=== PATIENT | female | born 1980 | race African-American/Black ===

== ENCOUNTER → 2019-12-30 11:17 | Outpatient (CLI) | payer OTHER, SELFPAY ==
--- NOTE | ~2019-12-30 | MM_ITS ---
EXAMINATION: MM screening manuelito BI w raisa HISTORY: Screening mammogram TECHNIQUE: Craniocaudal and mediolateral oblique 3-D tomosynthesis images were obtained and synthetic 2-D images were generated. CAD analysis was submitted and interpreted. COMPARISON: None, baseline BREAST PARENCHYMAL COMPOSITION: The breasts are heterogeneously dense, which may obscure small masses . FINDINGS: There is no evidence of suspicious mass, calcification, or architectural distortion to sugg est malignancy in either breast. IMPRESSION: 1. No mammographic evidence of malignancy. 2. Recommend routine screening mammography in one year. BI-RADS Category 1: Negative Reviewed, dictated and finalized at location A.
== END ==
PROVIDERS: PCP Family Medicine; Visit Provider Nurse Practitioner Family
DX: Z12.31 Encounter for screening mammogram for malignant neoplasm of breast (principal)
CPT/HCPCS: 77063; 77067

== ENCOUNTER 2021-01-25 14:47 | Emergency (ER) | payer OTHER, SELFPAY ==
--- NOTE | ~2021-01-25 | US_ITS ---
EXAMINATION: US right upper quadrant EXAM DATE: 01/25/2021 17:12 INDICATION: Right upper quadrant pain. TECHNIQUE: Multiple grayscale and Doppler images of the abdomen right upper quadrant were obtained (b y a technologist who performed the scan) and subsequently reviewed. There is no prior study for linda jean. FINDINGS: The pancreatic head and body are normal in appearance. The pancreatic tail is not visualized. The l iver has normal echogenicity and contour. There are no focal liver lesions identified. There is no evidence of intrahepatic biliary duct dilation. Portal venous flow was seen in the hepatopedal, nor mal direction and has normal Doppler waveform. No right-sided hydronephrosis. Common bile duct measures 4 mm, which is normal. The gallbladder wall is normal in thickness, with ex pected amount of distention. No sonographic evidence of pericholecystic fluid. There is no cholelit hiases. Technologist performing exam reports patient did not demonstrate sonographic Blackburn's sign. Please note that this sign is less reliable in patients who have received pain medication. IMPRESSION: 1. Unremarkable abdominal ultrasound exam. Reviewed, dictated and finalized at location A.
[2021-01-25 14:50] VITALS: BP 131/71; PULSE 66; RESP 16; TEMP 36.1; O2SAT 100
[2021-01-25 15:39] LABS: Add Urine Microscopic? YES; Appearance Urine Cloudy (Clear); Bacteria Urine Trace /hpf; Bilirubin Urine Negative (Negative); Blood Urine Negative (Negative); Color Urine Yellow (Yellow); Glucose Urine UA Negative (Negative); Ketones Urine Negative (Negative); Leukocyte Esterase Ur Negative LEU/UL (Negative); Mucus Urine Rare /lpf; Nitrate Urine Negative (Negative); Protein Urine 1+ mg/dL (Negative); Squamous Epithelial Cell Urine Rare /hpf (Few); Urobilinogen Urine Negative mg/dL (<2.0); WBC Urine 0-3 /hpf
[2021-01-25] MEDS: SODIUM CHLORIDE 0.9% IV 1,000 ML 999 ML IV CONT (15:42)
[2021-01-25] MEDS: HYOSCYAMINE SULFATE 0.125 MG TABLET PO (15:43)
[2021-01-25] MEDS: PANTOPRAZOLE SODIUM IV 40 MG VIAL IV PUSH (15:43)
[2021-01-25] MEDS: ONDANSETRON INJ 4 MG/2 ML VIAL IV PUSH (15:43)
[2021-01-25 15:48] VITALS: BP 109/68; PULSE 61; RESP 16; O2SAT 100
[2021-01-25 15:51] LABS: Basophils Percent Auto 0.2 % (0.2-1.2); Eosinophils Absolute Auto 0.1 K/mm3 (0-0.3); Eosinophils Percent Auto 1.5 % (0-4.4); Hematocrit 39.3 % (37.0-47.0); Hemoglobin 12.7 g/dL (12.0-15.0); Immature Granulocyte Absolute 0.01 K/mm3 (0.00-0.031); Immature Granulocyte Percent A 0.1 % (0-0.5); Lymphocytes Absolute Auto 4.06 K/mm3 (0.9-3.2); Lymphocytes Percent Auto 49.6 % (18.3-44.2); Mean Corpuscular HGB Conc 32.3 g/dl (32-36); Mean Corpuscular Hemoglobin 29.8 pg (26-34); Mean Corpuscular Volume 92.3 fl (80-100); Mean Platelet Volume 10.2 fl (7.4-10.4); Monocytes Absolute Auto 0.7 K/mm3 (0.1-0.6); Neutrophils Absolute Auto 3.2 K/mm3 (1.3-6.7); Neutrophils Percent Auto 39.6 % (45.5-73.1); Platelet Count Result 363 k/mm3 (150-375); Potassium 3.9 mmol/L (3.4-5.0); Red Blood Count 4.26 M/mm3 (4.2-5.4); Red Cell Distribution Width 13.7 % (11.5-14.5); White Blood Count 8.2 K/mm3 (4.5-10.0)
[2021-01-25 15:53] LABS: Alanine Aminotransferase 56 U/L (4-35); Albumin Level 4.4 g/dL (3.5-5.1); Alkaline Phosphatase 55 U/L (38-126); Anion Gap 4 mmol/L (8-16); Aspartate Amino Transferase 48 U/L (14-36); Bilirubin,Total 0.3 mg/dL (0.2-1.3); Blood Urea Nitrogen 8 mg/dL (7-17); Calcium 9.4 mg/dL (8.4-10.2); Carbon Dioxide 32 mmol/L (22-30); Chloride 103 mmol/L (98-107); Estimated CRCL calculation 98 ml/min; Estimated Glomerular Filt Rate > 60; Glucose 85 mg/dL (65-105); Lipase 33 U/L (23-300); Sodium 139 mmol/L (137-145)
[2021-01-25 16:30] VITALS: BP 115/79; PULSE 62; RESP 16; O2SAT 100
[2021-01-25 17:00] VITALS: BP 105/65; PULSE 64; RESP 16; O2SAT 100
--- NOTE | 2021-01-25 17:09 | ED.GENADULT ---
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 Patient notes over the last several days she has been bloated distended and discomfort in the epigastrium. Related Data Home Medications Medication Instructions Recorded Confirmed albuterol 90 mcg INHALATION PRN PRN 01/25/21 01/25/21 amlodipine 10 mg PO DAILY 01/25/21 01/25/21 azelastine 2 spray INTRANASAL BID 01/25/21 01/25/21 cetirizine 10 mg PO DAILY 01/25/21 01/25/21 clonazepam 0.5 mg PO TID PRN 01/25/21 01/25/21 ergocalciferol (vitamin D2) PO WEEKLY 01/25/21 famotidine 40 mg PO HS 01/25/21 01/25/21 fluticasone furoate-vilanterol 1 inh INHALATION DAILY 01/25/21 01/25/21 [Breo Ellipta] fluticasone propionate 1 spray INTRANASAL BID 01/25/21 01/25/21 hydroxyzine HCl 25 mg PO TID PRN 01/25/21 01/25/21 mepolizumab [Nucala] mg SUBCUT [id number] 01/25/21 methocarbamol 1,000 mg PO QID PRN 01/25/21 01/25/21 olmesartan 20 mg PO DAILY 01/25/21 01/25/21 olopatadine [Pazeo] 1 drp EACH EYE DAILY PRN 01/25/21 01/25/21 ondansetron HCl 8 mg PO PRN PRN 01/25/21 01/25/21 pantoprazole 20 mg PO BID 01/25/21 01/25/21 phentermine 37.5 mg PO DAILY 01/25/21 01/25/21 Allergies Allergy/AdvReac Type Severity Reaction Status Date / Time amoxicillin Allergy Unknown Anaphylaxis Verified 01/25/21 15:19 Penicillins Allergy Unknown Anaphylaxis Verified 01/25/21 15:19 Review of Systems Review of Systems: All systems reviewed & are unremarkable except as noted in HPI and below PMFSH Past Medical History Medical History (Updated 01/25/21 @ 18:10 by Fuad Reyes PA-C) Gastroesophageal reflux disease Family History Family History (Updated 09/18/17 @ 07:27 by DOCTOR UNKNOWN) Mother Family history of premature coronary heart disease, Onset Age: 50 Patient's mother is Diabetes mellitus Hypertension Family history of malignant neoplasm of cervix Father Diabetes mellitus Sibling Patient's brother is in good health Family history of anemia Social History Social History Smoking status: Never smoker Alcohol intake: current Exam Narrative: Exam Narrative: GENERAL: Well-appearing, well-nourished, and in no acute distress. HEAD: Normocephalic, atraumatic. EYES: PERRLA and EOMI. ENT: Nares clear, no rhinorrhea or epistaxis. Mucous membranes moist. CHEST: Clear to auscultation. No respiratory distress. No wheezes rales or rhonchi HEART: Regular rate and rhythm. No murmur heard. Normal peripheral pulses. ABDOMEN: Soft, epigastric tenderness to palpation, distended EXTREMITIES: Normal range of motion. No edema. SKIN: Warm, dry, no rash. NEURO: No focal deficits. Alert and oriented x3. Cranial nerves II through XII grossly intact PSYCH: Normal mood and affect. Course Course Emergency Course: Patient evaluated in the emergency department will be discharged home patient has follow-up with primary care tomorrow for reevaluation will be placed back on her PPI with additional medicines for symptoms with instructions for low-fat diet and gastric ulcer diet patient is afebrile nontoxic-appearing no distress Vital Signs Vital signs: Vital Signs Temperature 97.0 F L 01/25/21 14:50 Pulse Rate 66 01/25/21 14:50 Respiratory Rate 16 01/25/21 14:50 Blood Pressure 131/71 01/25/21 14:50 Pulse Oximetry 100 01/25/21 14:50 Temperat
[2021-01-25 18:25] VITALS: BP 109/71; PULSE 60; RESP 18; O2SAT 100
[2021-01-25 19:15] VITALS: BP 103/66; PULSE 60; RESP 17; O2SAT 100
== END 2021-01-25 19:15 | disposition home or self-care (01) ==
PROVIDERS: Emergency Medicine Emergency Medical Services; Emergency Provider Emergency Medicine; PCP Family Medicine
DX: R10.13 Epigastric pain (principal); K21.9 Gastro-esophageal reflux disease without esophagitis
CPT/HCPCS: 36415; 76705; 80053; 81001; 81025; 83690; 85025; 96361; 96374; 96375; 99284; A9270; C9113; J0131; J2405; J7030

== ENCOUNTER 2021-03-24 16:25 | Outpatient (CLI) | payer OTHER, SELFPAY ==
--- NOTE | ~2021-03-24 | MM_ITS ---
EXAMINATION: MM screening manuelito BI w raisa HISTORY: Screening TECHNIQUE: Craniocaudal and mediolateral oblique 3-D tomosynthesis images were obtained and synthetic 2-D images were generated. CAD analysis was submitted and interpreted. COMPARISON: 12/30/2019 BREAST PARENCHYMAL COMPOSITION: There are scattered areas of fibroglandular density. FINDINGS: There are bilateral subareolar asymmetries. There are no suspicious calcifications. No skin thickening. No definite architectural distortion. IMPRESSION: 1. Bilateral subareolar breast asymmetries. 2. Additional mammographic views and possible breast ultrasound are recommended. BI-RADS Category 0: Incomplete: Needs additional imaging evaluation. Reviewed, dictated and finalized at location A. IMPRESSION: 1. Bilateral subareolar breast asymmetries. 2. Additional mammographic views and possible breast ultrasound are recommended . BI-RADS Category 0: Incomplete: Needs additional imaging evaluation.
== END 2021-03-24 16:26 | disposition home or self-care (01) ==
PROVIDERS: PCP Family Medicine; Visit Provider Obstetrics & Gynecology Gynecology
DX: Z12.31 Encounter for screening mammogram for malignant neoplasm of breast (principal); R92.8 Other abnormal and inconclusive findings on diagnostic imaging of breast
CPT/HCPCS: 77063; 77067

== ENCOUNTER 2021-05-02 12:36 | Outpatient (CLI) | payer OTHER, SELFPAY ==
--- NOTE | ~2021-05-02 | MM_ITS ---
EXAMINATION: MM diagnostic mammo BI HISTORY: Bilateral breast asymmetries on screening mammogram TECHNIQUE: Additional 3-D tomosynthesis images of the breasts were performed and synthetic 2-D images were generated. CAD analysis was submitted and interpreted. COMPARISON: 03/24/2021, 12/30/2019 BREAST PARENCHYMAL COMPOSITION: The breasts are heterogeneously dense, which may obscure small masses . FINDINGS: There is a return to baseline fibroglandular appearance with spot compression of the breast s in the areas questioned on screening mammogram. IMPRESSION: 1. No mammographic evidence of malignancy. 2. Recommend routine screening mammography in one year. BI-RADS Category 1: Negative Reviewed, dictated and finalized at location A.
== END 2021-05-02 12:37 | disposition home or self-care (01) ==
PROVIDERS: PCP Family Medicine; Visit Provider Obstetrics & Gynecology Gynecology
DX: N65.1 Disproportion of reconstructed breast (principal)
CPT/HCPCS: 77066

== ENCOUNTER 2022-05-22 09:17 | Outpatient (CLI) | payer OTHER, SELFPAY ==
--- NOTE | ~2022-05-22 | MM_ITS ---
EXAMINATION: MM screening manuelito BI w raisa HISTORY: Screening TECHNIQUE: Craniocaudal and mediolateral oblique 3-D tomosynthesis images were obtained and synthetic 2-D images were generated. CAD analysis was submitted and interpreted. COMPARISON: Comparison to multiple prior studies sequentially, with oldest reviewed study dated 12/29. BREAST PARENCHYMAL COMPOSITION: Breast composed of scattered areas of fibroglandular density FINDINGS: The right breast is stable without evidence for malignancy. There is a developing asymmetry in the subareolar location of the left breast. IMPRESSION: 1. Developing left breast asymmetry in the subareolar location. 2. Additional mammographic views and possible breast ultrasound are recommended. BI-RADS Category 0: Incomplete: Needs additional imaging evaluation. Reviewed, dictated and finalized at location A. IMPRESSION: 1. Developing left breast asymmetry in the subareolar location. 2. Additional mammographic views and possible breast ultrasound are recommended . BI-RADS Category 0: Incomplete: Needs additional imaging evaluation.
== END 2022-05-22 09:18 | disposition home or self-care (01) ==
LOC: ANHIMG 09:19
PROVIDERS: PCP Family Medicine; Visit Provider Nurse Practitioner
DX: Z12.31 Encounter for screening mammogram for malignant neoplasm of breast (principal); R92.8 Other abnormal and inconclusive findings on diagnostic imaging of breast
CPT/HCPCS: 77063; 77067

== ENCOUNTER 2022-06-13 12:51 | Outpatient (CLI) | payer OTHER, SELFPAY ==
--- NOTE | ~2022-06-13 | MMUS_ITS ---
EXAMINATION: MM diagnostic manuelito LT w raisa, US breast LT limited HISTORY: Follow-up left breast asymmetry TECHNIQUE: Additional 3-D tomosynthesis images of the left breast were performed and synthetic 2-D im ages were generated. CAD analysis was submitted and interpreted. High resolution Limited left breast ultrasound was performed. COMPARISON: Comparison to multiple prior studies sequentially, with oldest reviewed study dated 12/29. BREAST PARENCHYMAL COMPOSITION: Breast composed of scattered areas of fibroglandular density FINDINGS: MAMMOGRAPHIC FINDINGS: The area of asymmetry in the upper central aspect of the left breast is less dense with spot compress ion views. No discrete mass identified on tomographic images. There are no suspicious calcifications or architectural distortion. ULTRASOUND: Limited left breast ultrasound: No discrete solid or cystic mass is identified. At the 3:00 position near the areola there is a area of echogenic shadowing soft tissue, although no discrete mass identif ied. IMPRESSION: 1. Probable benign findings of the left breast. 2. Recommend 6 month follow-up diagnostic left mammogram and left breast ultrasound BI-RADS category 3, probably benign findings. Reviewed, dictated and finalized at location A. IMPRESSION: 1. Probable benign findings of the left breast. 2. Recommend 6 month follow-up diagnostic left mammogram and left breast ultras ound BI-RADS category 3, probably benign findings.
== END 2022-06-13 12:52 | disposition home or self-care (01) ==
PROVIDERS: PCP Family Medicine; Visit Provider Obstetrics & Gynecology Gynecology
DX: R92.8 Other abnormal and inconclusive findings on diagnostic imaging of breast (principal)
CPT/HCPCS: 76642; 77061; 77065; G0279

== ENCOUNTER 2023-01-19 13:46 | Outpatient (CLI) | payer OTHER, SELFPAY ==
--- NOTE | ~2023-01-19 | MMUS_ITS ---
EXAMINATION: MM diagnostic manuelito LT w raisa, US breast LT complete HISTORY: Follow-up left breast asymmetry TECHNIQUE: Additional 3-D tomosynthesis images of the left breast were performed and synthetic 2-D im ages were generated. CAD analysis was submitted and interpreted. High resolution complete left breast ultrasound was performed. COMPARISON: Comparison to multiple prior studies sequentially, with oldest reviewed study dated 12/29. BREAST PARENCHYMAL COMPOSITION: Breast composed of scattered areas of fibroglandular density FINDINGS: MAMMOGRAPHIC FINDINGS: There are no suspicious masses, calcifications or architectural distortion in the left breast to sugg est malignancy. Left breast asymmetry is stable. ULTRASOUND: Complete US of all 4 quadrants of the left breast and retroareolar region was reviewed. Normal hetero geneous echotexture without focal mass. IMPRESSION: 1. No evidence for malignancy in the left breast. 2. Routine yearly screening mammogram and regular clinical breast examination are recommended. BI-RADS Category 1: Negative Reviewed, dictated and finalized at location A. IMPRESSION: 1. No evidence for malignancy in the left breast. 2. Routine yearly screening mammogram and regular clinical breast examination a re recommended. BI-RADS Category 1: Negative
== END 2023-01-19 13:47 | disposition home or self-care (01) ==
LOC: ANHIMG 13:48
PROVIDERS: PCP Family Medicine; Visit Provider Obstetrics & Gynecology Gynecology
DX: R92.8 Other abnormal and inconclusive findings on diagnostic imaging of breast (principal)
CPT/HCPCS: 76641; 77061; 77065; G0279

== ENCOUNTER 2023-02-10 00:53 | Emergency (ER) | payer OTHER, SELFPAY ==
--- NOTE | ~2023-02-10 | XR_ITS ---
EXAMINATION: XR foot RT 2V INDICATION: Right foot pain TECHNIQUE: Two views of the right foot are obtained. COMPARISON: None available FINDINGS: Bone alignment is normal. There is no fracture. There is mild osteoarthritis at the first m etatarsophalangeal joint. There is soft tissue swelling of ankle. IMPRESSION: 1. No acute osseous abnormality. Reviewed, dictated and finalized at location A.
--- NOTE | ~2023-02-10 | XR_ITS ---
EXAMINATION: XR ankle RT min 3V INDICATION: Right ankle pain TECHNIQUE: Three views of the right ankle are obtained. COMPARISON: 08/13/2013 FINDINGS: There is soft tissue swelling of ankle. Bone alignment is normal. There is no fracture. A p osterior calcaneal enthesophyte is noted. IMPRESSION: 1. No acute osseous abnormality. Reviewed, dictated and finalized at location A.
--- NOTE | ~2023-02-10 | XR_ITS ---
EXAMINATION: XR tibia fibula RT 2V INDICATION: Right leg pain TECHNIQUE: Two views of the right tibia and fibula are obtained on three radiographs. COMPARISON: None available FINDINGS: Bone alignment is normal. There is a subtle linear heterotopic ossification projecting medi al to the medial malleolus. There is soft tissue swelling of ankle. IMPRESSION: 1. Possible avulsion injury at the medial aspect of the medial malleolus. Reviewed, dictated and finalized at location A.
--- NOTE | 2023-02-10 01:11 | ED.LOWEXIN ---
HPI - Extremity Injury (Lower) General Chief Complaint: Extremity Injury, Lower <Monisha Harrison PA-C - Last Filed: 02/11/23 09:12> Stated Complaint: right lower extremity swelling, after flying <Monisha Harrison PA-C - Last Filed: 02/11/23 09:12> Time Seen by Provider: 02/10/23 01:02 <Monisha Harrison PA-C - Last Filed: 02/11/23 09:12> History of Present Illness HPI Narrative: 42-year-old female reports for evaluation of right lower extremity swelling and pain for 4 days. Patient reports 4 days ago, she flew from [place] to [place] and later twisted her right ankle while wearing heels. States she started having some edema to the lateral aspect of her right ankle and pain which progressively worsened over multiple days. States today she flew back from [place] and now the entire leg is swollen up into her knee. She denies redness, rashes, weeping, chest pain, shortness of breath, fever. Reports she has been ambulating on her foot without difficulty. <Monisha Harrison PA-C - Last Filed: 02/11/23 09:12> Related Data Home Medications: Home Medications Medication Instructions Recorded Confirmed albuterol 90 mcg/actuation aerosol 90 mcg inhalation PRN PRN Allergy 01/25/21 01/25/21 inhaler Symptoms amlodipine 10 mg tablet 10 mg PO DAILY 01/25/21 01/25/21 azelastine 137 mcg (0.1 %) nasal 2 spray intranasal BID 01/25/21 01/25/21 spray aerosol cetirizine 10 mg tablet 10 mg PO DAILY 01/25/21 01/25/21 clonazepam 0.5 mg tablet 0.5 mg PO TID PRN Anxiety 01/25/21 01/25/21 ergocalciferol (vitamin D2) 1,250 PO WEEKLY 01/25/21 mcg (50,000 unit) capsule famotidine 40 mg tablet 40 mg PO HS 01/25/21 01/25/21 fluticasone furoate 200 1 inh inhalation DAILY 01/25/21 01/25/21 mcg-vilanterol 25 mcg/dose inhalation powder (Breo Ellipta) fluticasone propionate 50 1 spray intranasal BID 01/25/21 01/25/21 mcg/actuation nasal spray,suspension hydroxyzine HCl 25 mg tablet 25 mg PO TID PRN Itching 01/25/21 01/25/21 mepolizumab 100 mg subcutaneous mg subcut [id number] 01/25/21 solution (Nucala) methocarbamol 500 mg tablet 1,000 mg PO QID PRN Back Pain 01/25/21 01/25/21 olmesartan 20 mg tablet 20 mg PO DAILY 01/25/21 01/25/21 olopatadine 0.7 % eye drops 1 drp EACH EYE DAILY PRN Allergy 01/25/21 01/25/21 Symptoms ondansetron HCl 8 mg tablet 8 mg PO PRN PRN Nausea And Vomiting 01/25/21 01/25/21 pantoprazole 20 mg tablet,delayed 20 mg PO BID 01/25/21 01/25/21 release phentermine 37.5 mg capsule 37.5 mg PO DAILY 01/25/21 01/25/21 <Monisha Harrison PA-C - Last Filed: 02/11/23 09:12> Allergies/Adverse Reactions: Allergies Allergy/AdvReac Type Severity Reaction Status Date / Time amoxicillin Allergy Unknown Anaphylaxis Verified 02/10/23 00:55 Penicillins Allergy Unknown Anaphylaxis Verified 02/10/23 00:55 <Monisha Harrison PA-C - Last Filed: 02/11/23 09:12> Review of Systems Review of Systems: CONSTITUTIONAL: Denies fever, chills EYES: Denies visual changes, redness, or discharge. ENT: Denies rhinorrhea, congestion, sore throat, or otalgia. CARDIOVASCULAR: Denies chest pain, palpitations, or edema. RESPIRATORY: Denies cough or dyspnea. GASTROINTESTINAL: Denies abdominal pain, nausea, vomiting, or diarrhea. GENITOURINARY: Denies dysuria or hematuria. SKIN: Denies rash or itching. MUSCULOSKELETAL: See HPI NEUROLOGIC: Denies headache, numbness, dizziness, or weakness. PSYCHIATRIC: Denies anxiety or depression. <JULIAN Goodwin Last Filed: 02/11/23 09:12> [facility] Past Medical History Medical History: Medical History Gastroesophageal reflux disease <Monisha Harrison PA-C - Last Filed: 02/11/23 09:12> Family History Family History: Family History Mother Family history of premature coronary heart disease, Onset Age: 50 Patient's mother is deceas
[2023-02-10] MEDS: CYCLOBENZAPRINE HCL 10 MG TABLET PO (01:25)
[2023-02-10] MEDS: HYDROcodone/acetaminophen (*CRX) 5-325 MG TABLET 1 TAB PO (01:25)
[2023-02-10 01:32] LABS: Basophils Percent Auto 0.3 % (0.2-1.2); Eosinophils Absolute Auto 0.1 K/mm3 (0-0.3); Eosinophils Percent Auto 0.7 % (0-4.4); Hematocrit 35.1 % (37.0-47.0); Immature Granulocyte Absolute 0.01 K/mm3 (0.00-0.031); Immature Granulocyte Percent A 0.1 % (0-0.5); Lymphocytes Absolute Auto 3.09 K/mm3 (0.9-3.2); Lymphocytes Percent Auto 41.4 % (18.3-44.2); Mean Corpuscular HGB Conc 31.3 g/dl (32-36); Mean Corpuscular Hemoglobin 28.6 pg (26-34); Mean Corpuscular Volume 91.2 fl (80-100); Mean Platelet Volume 10.8 fl (7.4-10.4); Monocytes Absolute Auto 0.8 K/mm3 (0.1-0.6); Monocytes Percent Auto 10.3 % (2.6-8.5); Neutrophils Absolute Auto 3.5 K/mm3 (1.3-6.7); Neutrophils Percent Auto 47.2 % (45.5-73.1); Platelet Count Result 237 k/mm3 (150-375); Red Blood Count 3.85 M/mm3 (4.2-5.4); Red Cell Distribution Width 15.1 % (11.5-14.5); White Blood Count 7.5 K/mm3 (4.5-10.0)
[2023-02-10] MEDS: ENOXAPARIN 100 MG/ML SYRINGE SUB-Q (01:52)
[2023-02-10 01:54] VITALS: BP 122/78; PULSE 66; RESP 15; TEMP 36.4; O2SAT 98
== END 2023-02-10 03:54 | disposition home or self-care (01) ==
PROVIDERS: Emergency Provider Physician Assistant; PCP Family Medicine
DX: S93.401A Sprain of unspecified ligament of right ankle, initial encounter (principal); S96.911A Strain of unspecified muscle and tendon at ankle and foot level, right foot, initial encounter; R22.41 Localized swelling, mass and lump, right lower limb; K21.9 Gastro-esophageal reflux disease without esophagitis; X50.9XXA Other and unspecified overexertion or strenuous movements or postures, initial encounter
CPT/HCPCS: 36415; 73590; 73610; 73620; 85025; 96372; 99283; 99284; A9270; J1650

== ENCOUNTER 2023-02-10 07:10 | Outpatient (CLI) | payer OTHER, SELFPAY ==
--- NOTE | ~2023-02-10 | US_ITS ---
EXAMINATION: US venous doppler LE RT DATE: 02/10/2023 07:58 INDICATION: Right lower limb swelling TECHNIQUE: Hinton scale images without and with compression and Doppler images of the right lower extre mity veins were obtained. COMPARISON: None FINDINGS: The right common femoral vein, profunda femoral vein, femoral vein, popliteal vein, peronea l trunk, posterior tibial veins, and greater saphenous vein are patent. IMPRESSION: 1. Patent right lower extremity veins. No evidence of deep venous thrombosis. Reviewed, dictated and finalized at location A.
== END 2023-02-10 07:11 | disposition home or self-care (01) ==
PROVIDERS: PCP Family Medicine; Visit Provider Family Medicine
DX: R60.0 Localized edema (principal)
CPT/HCPCS: 93971

== ENCOUNTER 2025-02-06 09:40 | Outpatient (CLI) | payer OTHER, SELFPAY ==
--- NOTE | ~2025-02-06 | MM_ITS ---
EXAMINATION: MM screening manueilto BI w raisa HISTORY: Screening TECHNIQUE: Craniocaudal and mediolateral oblique 3-D tomosynthesis images were obtained and synthetic 2-D images were generated. CAD analysis was submitted and interpreted. COMPARISON: Comparison to multiple prior studies sequentially, with oldest reviewed study dated 12/29. BREAST PARENCHYMAL COMPOSITION: Not dense: There are scattered areas of fibroglandular density. FINDINGS: There is no evidence of suspicious mass, calcification, or architectural distortion to sugg est malignancy in either breast. There has been no suspicious interval change. IMPRESSION: 1. No mammographic evidence of malignancy. 2. Recommend routine screening mammography in one year. BI-RADS Category 1: Negative Reviewed, dictated and finalized at location B.
--- OUTSIDE RECORDS SUMMARY | 2025-02-06 09:52 | XMS_ITS ---
Author Organization [facility] Address [address] [place] [address] Care Team Providers Care Film Crew Member Name Role Phone Lasha Juarez Primary Care Provider Valentine Ferro [phone] Walter Valdez Unavailable Unavailable REASON FOR VISIT Medical records request Social History Sex Assigned At : Social History Observation Description Sex Assigned At Female Encounters Encounter Location Date Provider Diagnosis [facility] [address] [place] [address] 01/22/2025 Valentine Reyes Plan Of Treatment Next Appt Details Provider Name:Alexis Saba , 02/19/2025 11:00:00 AM, [address] [address], [place], [address], Provider Name:Alexis Saba , 02/26/2025 11:30:00 AM, [address] [facility] [address], [place], [address], Progress Notes * Anila ZACARIASOB: (44 yo F)Acc No.[id number]:01/22/2025 Patient: Antonella SmithAnila PLASCENCIA :1980 A ge:44 Y S ex:Female Address:[address] [place] [address], [id number] * true * Date: Generated for Thor de anda/Christiano/Eduitting on: 0 02/06/2025 09:52 AM CDT
--- OUTSIDE RECORDS SUMMARY | 2025-02-06 09:52 | XMS_ITS | Data Portability ---
Author Organization [place] [facility] [employer], Main Office Address [address] [place] [address] Assessment No assessment recorded. Plan of Treatment Reminders Order Date Submit Date Provider Last Modified By Organization Details Last Modified Time Details Appointments None recorded. Lab None recorded. Referral nutritionis t/dietitian referral - Please call the pt to make an appt. Thank you [email or web address], 2022 Ajit Balbuena, [facility] [address], [place], [address], 19:16:07 Procedures None recorded. Surgeries None recorded. Imaging XR, ankle, 3 or more view 2022 023 [email or web address] [id number] Not available 3 10:53:22 Medication Orders naproxen 500 mg tablet 2023 024 [facility]/Pharmacy #[id number], [address] [place], [address], 4 14:46:16 azithromyci n 250 mg tablet 2023 024 [facility]/Pharmacy #3259, [address] [place], [address], 4 14:46:15 methylpheni date ER 27 mg tablet,exte nded release 24 hr 2023 [email or web address] [place] [address]/Pharmacy #3259, [address] [place], [address], 4 14:44:30 ondansetron HCl 8 mg tablet 2023 024 [facility]/Pharmacy #3259, [address] [place], [address], 4 16:22:08 methylpheni date ER 18 mg tablet,exte nded release 24 hr 2023 024 [facility]/Pharmacy #3259, [address] [place], [address], 4 16:24:28 Wegovy 0.25 mg/0.5 mL subcutaneou s pen injector 2023 024 [id number], [address] [place], [address], 4 15:59:13 hydroxyzine HCl 25 mg tablet 2023 024 [facility]/Pharmacy #3259, [address] [place], [address], 4 15:08:02 hyoscyamine sulfate 0.125 mg tablet 2023 024 [facility]/Pharmacy #3259, [address] [place], [address], 4 15:12:33 amitriptyli ne 10 mg tablet 2022 023 [facility]/Pharmacy #3259, [address] [place], [address], 4 14:28:18 Wegovy 0.25 mg/0.5 mL subcutaneou s pen injector 2022 023 [facility]/Pharmacy #3259, [address] [place], [address], 15:59:13 Patient TargetsNo targets recorded. Patient Instructions Encounter Date Encounter Id Patient Instructions Last Modified By Organization Details Last Modified Time 08/05/2024 [id number] reassured. 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 Thank you Referring Physician: Saúl Carpio, Family Medicine, Encounter Date: 02/15/2023 Results Created Date Observation Date Name Description Value Unit Range Abnormal Flag Note LastModifiedBy Organization Detail LastModifiedTime 01/20/2001/19/2023 MAMMO , scree nena, digit al, bilat eral No observ ation record ed. [address] [facility], [place], [address], 01/22/2023 08:25:47 02/11/20 23 02/10/2023 US, doppl er, venou s No observ ation record ed. [address] [facility], [place], [address], 02/12/2023 10:08:49 02/11/20 23 02/10/2023 US, doppl er, venou s No observ ation record ed. [address] [facility], [place], [address], 02/12/2023 10:09:42 02/11/20 23 02/10/2023 XR, ankle No observ ation record ed. [address], [place], [address], 02/12/2023 10:10:20 02/11/20 23 02/10/2023 XR, foot No observ ation record ed. [address], [place], [address], 02/12/2023 10:10:34 02/11/20 23 02/10/2023 XR, tibia + fibul a No observ ation record ed. [address], [place], [address], 02/12/2023 10:11:01 02/11/20 23 02/10/2023 XR, ankle No observ ation record ed. [address], [place], [address], 02/12/2023 10:11:20 Result Notes None recorded. Problems Name Problem SNOMED Code Status Onset Date Resolution Date Notes Provider Name and Address Organization Details Recorded Time Irritabl e bowel syndrome 81404842 Active Not Available [facility] 3 16:44:27 Backache 291879801 Active chronic Not Available [facility] 3 16:44:27 Asthma 616204290 Active Not Available [facility] 3 16:44:27 Abdomina l pain 61923373 Active Not Available [facility] 3 16:44:28 Feeling stressed 659706572 Active Not Available [facility] 3 16:44:28 Gastroes ophageal reflux disease without esophagi tis 245649017 Active 2020 Not Available [facility] 3 16:44:28 Hyperten sive disorder 54866682 Active Not Available [facility] 3 16:44:28 Upper respirat ory infectio n 42875761 Completed Not Available [facility] 3 16:44:28 Eosinoph ilic granulom atosis with polyangi itis 92531225 Active 2021 Not Available [facility] 3 16:44:28 COVID-19 110816960 Active 2019 Not Available [facility] 3 16:44:28 Fatigue 46772529 Active Not Available [facility] 3 16:44:28 Pneumoni a caused by SARS-CoV -2 [id number] 4890324 Active 2019 Not Available [facility] 3 16:44:28 Obesity 098795394 Active 2022 Saúl Carpio MD [address], [address], [place], [address] , [facility] 3 15:57:18 Sprain of right ankle [id number] 541471 Active 2022 Saúl Carpio MD [address], [address], [place], [address] , [employer] 3 12:47:26 Nausea 211026652 Active 2022 ELVIRA Edmondson [address], [address], [place], [address] , [employer] 3 12:43:57 Persiste nt insomnia 113909028 Active 2022 Saúl Carpio MD [address], [address], [place], [address] , [employer] 3 12:28:02 Sinusiti s 67971346 Active 2023 ELVIRA Edmondson [address], [address], [place], [address] , [employer] 4 13:47:58 Adult health examinat ion Active 2023 ELVIRA Edmondson [address], [address], [place], [address] , [employer] 4 15:14:15 Attentio n deficit hyperact ivity disorder , predomin antly inattent edwin type 58138514 Active 2023 ELVIRA Edmondson [address], [address], [place], [address] , [employer] 4 16:21:45 Obese 057842191 Active 2023 Yumiko Ballard RN null, [employer] 4 15:42:44 Problem Notes None recorded. Procedures Surgical History None recorded. Imaging Results Imaging Date Name Status LastModified by Organiz ation Details LastModified Time 01/19/2023 MAMMO, screening, digital, bilateral completed [address] [facility], [place], [address], 01/22/2023 08:25:47 02/10/2023 US, doppler, venous completed [address] [facility], [place], [address], 02/12/2023 10:08:49 02/10/2023 US, doppler, venous completed [address] [facility], [place], [address], 02/12/2023 10:09:42 02/10/2023 XR, ankle completed [address] [facility], [place], [address], 02/12/2023 10:10:20 02/10/2023 XR, foot completed [address] [facility], [place], [address], 02/12/2023 10:10:34 02/10/2023 XR, tibia + fibula completed [address] [place] [address], [address], 02/12/2023 10:11:01 02/10/2023 XR, ankle completed [address], [address], 02/12/2023 10:11:20 Procedure Notes None recorded. Medical Equipment None Reported. Allergies Allergen ID Allergen Name Allergen Category Reaction Reaction Severity Criticality Documentation Date Start Date Code Code System Note Provider Name and Address Organization Details Recorded Time 53534 penicilli n V Not available Not available Not available Not available 12/20/2022 7984 RxNorm Not Available [facility] 3 16:46:00 76835 amoxicill in medicatio n Not available Not available Not available 12/20/2022 723 RxNorm Not Available [facility] 3 16:46:01 Medications Name Sig Start Date Stop Date Status Note LastModified by Organization Details LastModified Time losartan 50 mg tablet Take 1 tablet every day by oral route. active Not Available Not Available No t Available methocarb ion 500 mg tablet TK 2 TS PO QID PRN active Not Available Not Available No t Available promethaz ine-DM 6.25 mg-15 mg/5 mL oral syrup 02/11 completed Not Available Not Available Not Available prednison e 10 mg tablet TK 1 T PO QD 04/11 completed Not Available Not Available Not Available albuterol sulfate 2.5 mg/3 mL (0.083 %) solution for nebulizat ion U 1 VIAL VIA NEB Q 4 TO 6 H PRN active Not Available Not Available No t Available cetirizin e 10 mg tablet TAKE 1 TABLET BY MOUTH EVERY DAY FOR 90 DAYS active Not Available Not Available No t Available ketoconaz ole 200 mg tablet Take 1 tablet every day by oral route. active Not Available Not Available No t Available azithromy pura 250 mg tablet TAKE 2 TABLETS (500 MG) BY ORAL ROUTE ONCE DAILY FOR 1 DAY THEN 1 TABLET (250 MG) BY ORAL ROUTE ONCE DAILY FOR 4 DAYS active Not Available Not Available No t Available fluconazo le 150 mg tablet 04/20 completed Not Available Not Available Not Available clarithro mycin 500 mg tablet TK 1 T PO Q 12 H FOR 10 DAYS 04/20 completed Not Available Not Available Not Available ondansetr on HCl 8 mg tablet TAKE 1 TABLET BY MOUTH EVERY 8 HOURS NEEDED active Not Available Not Available No t Available fluconazo le 200 mg tablet TAKE 1 TABLET BY MOUTH DAILY 09/13 completed Not Available Not Available Not Available metronida zole 0.75 % (37.5 mg/5 gram) vaginal gel 04/20 completed Not Available Not Available Not Available famotidin e 40 mg tablet active Not Available Not Available Not Available prednison e 20 mg tablet TAKE 1 TABLET BY MOUTH TWICE A DAY FOR 5 DAYS 06/16 completed Not Available Not Available Not Available Tubersol 5 tub. unit/0.1 mL intraderm al injection solution inject .5ml 02/15 completed Not Available Not Available Not Available clonazepa m 0.5 mg tablet TK 1 T PO TID PRN 09/23 completed pt no longer taking Not Available Not Available Not Available fluoxetin e 10 mg tablet TK 2 TS PO QAM active Not Available Not Available No t Available prednison e 5 mg tablet TAKE 1 TABLET BY MOUTH ONCE A DAY DIRECTED 09/13 completed Not Available Not Available Not Available terconazo le 0.8 % vaginal cream INSERT 1 APPLICAT OR FULL IN VAGINA AT BEDTIME FOR 3 DAYS 02/15 completed Not Available Not Available Not Available pimecroli mus 1 % topical cream MARCELLA TO FACE BID UTD 09/13 completed Not Available Not Available Not Available permethri n 5 % topical cream APPLY AND THOROUGH LY MASSAGE INTO SKIN FROM HEAD TO SOLES OF FEET AND LEAVE ON FOR 8 TO 14 HOURS. REMOVE BY WASHING active Not Available Not Available No t Available diphenoxy late-atro pine 2.5 mg-0.025 mg tablet 1-2 tablets Q 4 hours as needed. 02/15 completed Not Available Not Available Not Available azathiopr ine 50 mg tablet TAKE 1 TABLET BY MOUTH EVERY DAY 09/04 completed Not Available Not Available Not Available phentermi ne 37.5 mg tablet TAKE 1 AND 1/2 TABLETS DAILY BY MOUTH 06/16 completed not taking, would like refill Not Available Not Available Not Available fexofenad ine 180 mg tablet TK 1 T PO ONCE D 11/25 completed Not Available Not Available Not Available ciproflox acin 500 mg tablet TAKE 1 TABLET BY MOUTH EVERY 12 HOURS FOR 10 DAYS 06/16 completed Not Available Not Available Not Available triamcino lone acetonide 0.1 % topical cream APPLY EXTERNAL LY TO THE AFFECTED AREA TWICE DAILY NEEDED active Not Available Not Available No t Available spironola ctone 25 mg tablet TAKE 1 TABLET BY MOUTH EVERY DAY FOR 10 DAYS THEN NEEDED 09/13 completed Not Available Not Available Not Available pantopraz ole 20 mg tablet,de layed release TAKE 2 TABLETS BY MOUTH TWICE DAILY 04/11 completed Not Available Not Available Not Available nystatin- triamcino lone 100,000 unit/gram -0.1 % topical ointment 01/01 completed Not Available Not Available Not Available alprazola m 0.5 mg tablet Take 1 tablet 3 times a day by oral route as needed. active Not Available Not Available No t Available famotidin e 20 mg tablet TAKE 1 TABLET BY MOUTH AT BEDTIME NEEDED active Not Available Not Available No t Available Vitamin C 1,000 mg tablet Take 1 tablet every day by oral route. 03/28 completed Not Available Not Available Not Available amitripty line 10 mg tablet TAKE 1 TABLET BY MOUTH EVERY DAY 09/23 completed pt stopped Not Available Not Available Not Available amlodipin e 10 mg tablet TAKE 1 TABLET BY MOUTH EVERY DAY active Not Available Not Available No t Available benzonata te 100 mg capsule TAKE 1 CAPSULE BY MOUTH THREE TIMES A DAY FOR 10 DAYS 06/16 completed Not Available Not Available Not Available prednison e 2.5 mg tablet 11/25 completed Not Available Not Available Not Available pantopraz ole 40 mg tablet,de layed release 1 TABLET 1/2 TO 1 HOUR BEFORE MORNING MEAL ORALLY ONCE A DAY 90 DAYS active Not Available Not Available No t Available hyoscyami ne sulfate 0.125 mg tablet TAKE 1 TABLET BY MOUTH EVERY 6 HOURS NEEDED active Not Available Not Available No t Available oseltamiv ir 75 mg capsule TAKE 1 CAPSULE BY MOUTH TWICE A DAY FOR 5 DAYS 02/15 completed Not Available Not Available Not Available fluoxetin e 20 mg tablet TAKE 2 TABLETS BY MOUTH DAILY 11/25 completed Not Available Not Available Not Available triamcino lone acetonide 0.1 % topical ointment 04/20 completed Not Available Not Available Not Available nystatin 100,000 unit/gram topical cream 01/01 completed Not Available Not Available Not Available hydrochlo rothiazid e 12.5 mg capsule TK 1 C PO QD 11/25 completed Not Available Not Available Not Available Advair Diskus 500 mcg-50 mcg/dose powder for inhalatio n 09/13 completed Not Available Not Available Not Available lidocaine HCl 2 % mucosal solution APPLY 5-10 ML TO THE MOUTH OR THROAT EVERY 3 (THREE) HOURS FOR 7 DAYS active Not Available Not Available No t Available omeprazol e 20 mg capsule,d elayed release TK 1 C PO QD BEFORE A MEAL 04/20 completed Not Available Not Available Not Available monteluka st 10 mg tablet TK 1 T PO QD IN THE EVENING 02/11 completed Not Available Not Available Not Available hydroxyzi ne HCl 25 mg tablet TAKE 1 TABLET 3 TIMES A DAY NEEDED active Not Available Not Available No t Available Unithroid 25 mcg tablet TAKE 1 TABLET BY MOUTH EVERY DAY IN THE MORNING 06/16 completed Not Available Not Available Not Available ergocalci ferol (vitamin D2) 1,250 mcg (50,000 unit) capsule TAKE 1 CAPSULE EVERY WEEK 2024 active Not Available Not Available Not Avai lable clobetaso l 0.05 % topical ointment 11/25 completed Not Available Not Available Not Available azelastin e 137 mcg (0.1 %) nasal spray U 2 SPRAYS NASALLY BID active Not Available Not Available No t Available budesonid e DR - ER 3 mg capsule,d elayed,ex tended release TK 3 CS PO QD 11/25 completed Not Available Not Available Not Available levofloxa pura 500 mg tablet TK 1 T PO Q 24 H FOR 10 DAYS 08/23 completed Not Available Not Available Not Available methylpre dnisolone 4 mg tablets in a dose pack FOLLOW PACKAGE DIRECTIO NS active Not Available Not Available No t Available albuterol sulfate HFA 90 mcg/actua tion aerosol inhaler INL 2 PFS PO Q 4 TO 6 H PRN active Not Available Not Available No t Available ipratropi um bromide 42 mcg (0.06 %) nasal spray USE 2 SPRAY(S) INTRANAS ALLY UP TO 4 TIMES A DAY NEEDED 30 DAY(S) 09/23 completed Not Available Not Available Not Available losartan 50 mg-hydroc hlorothia zide 12.5 mg tablet TK 1 T PO QD 04/20 completed Not Available Not Available Not Available norethind radhames (contrace ptive) 0.35 mg tablet TAKE 1 TABLET BY MOUTH EVERY DAY IN THE MORNING 06/16 completed Not Available Not Available Not Available ketoconaz ole 2 % topical cream 11/28 completed Not Available Not Available Not Available hydroxyzi ne HCl 10 mg tablet TK 1 T PO QD HS PRF ITCHING 11/28 completed Not Available Not Available Not Available ondansetr on 4 mg disintegr ating tablet DISSOLVE 1 TABLET ON THE TONGUE THREE TIMES DAILY FOR 10 DAYS NEEDED 11/14 completed Not Available Not Available Not Available methylphe nidate ER 18 mg tablet,ex tended release 24 hr Take 1 tablet every day by oral route in the morning for 30 days. active Not Available Not Available No t Available fluticaso ne propionat e 50 mcg/actua tion nasal spray,sg pension U 1 SPRAY IEN BID active Not Available Not Available No t Available metformin ER 500 mg tablet,ex tended release 24 hr Take 1 tablet every day by oral route at dinner for 90 days. active Not Available Not Available No t Available doxycycli ne hyclate 100 mg tablet TAKE 1 TABLET BY MOUTH TWICE DAILY FOR 10 DAYS 09/13 completed Not Available Not Available Not Available phentermi ne 37.5 mg capsule 08/05 completed Not Available Not Available Not Available naproxen 500 mg tablet Take 1 tablet twice a day by oral route with meal(s) for 10 days. active Not Available Not Available No t Available methylphe nidate ER 36 mg tablet,ex tended release 24 hr Take 1 tablet every day by oral route in the morning for 30 days. active Not Available Not Available No t Available spironola ctone 50 mg tablet Take 2 tablets every day by oral route in the morning for 90 days. active Not Available Not Available No t Available olanzapin e 5 mg disintegr ating tablet DISSOLVE 1 TABLET BY MOUTH DAILY NEEDED FOR SEVERE ABDOMINA L PAIN OR NAUSEA FOR UP TO 7 DOSES 09/13 completed Not Available Not Available Not Available methylphe nidate ER 27 mg tablet,ex tended release 24 hr TAKE 1 TABLET BY MOUTH EVERY DAY IN THE MORNING active Not Available Not Available No t Available olmesarta n 20 mg tablet TAKE 1 TABLET DAILY active Not Available Not Available No t Available metaxalon e 800 mg tablet TK 1 T PO TID 07/09 completed Not Available Not Available Not Available Prilosec OTC 20 mg tablet,de layed release Take by oral route. 09/13 completed Not Available Not Available Not Available bupropion HCl XL 150 mg 24 hr tablet, extended release TK 1 T PO QD active Not Available Not Available No t Available escitalop christy 5 mg tablet TK ONE T PO ONCE D active Not Available Not Available No t Available BD Ultra-Fin e Mini Pen Needle 31 gauge x 3/16 U UTD active Not Available Not Available Not Available Clindesse 2 % vaginal cream,ext ended release 12/26 completed Not Available Not Available Not Available Rozerem 8 mg tablet TAKE 1 TABLET PO QHS active Not Available Not Available No t Available budesonid e 1 mg/2 mL suspensio n for nebulizat ion MIX 1 VIAL WITH 10 SPLENDA PACKETS AND DRINK SOLUTION TWICE DAILY 02/15 completed Not Available Not Available Not Available Tilia Fe 1-20 (5)/1-30( 7)/1mg-35 mcg(9) tablet TK 1 T PO QD active Not Available Not Available No t Available olopatadi ne 0.6 % nasal spray 04/20 completed Not Available Not Available Not Available Dulera 200 mcg-5 mcg/actua tion HFA aerosol inhaler 07/09 completed Not Available Not Available Not Available Dulera 100 mcg-5 mcg/actua tion HFA aerosol inhaler Inhale 2 puffs twice a day by inhalati on route. 11/25 completed Not Available Not Available Not Available [employer]ER OPERATOR Thyroid 30 mg tablet TAKE 1 TABLET BY MOUTH EVERY DAY ON EMPTY STOMACH FOR 30 DAYS active Not Available Not Available No t Available Auvi-Q 0.3 mg/0.3 mL injection , auto-inje ctor INJECT 0.3 MG INTRAMUS CULARLY NEEDED FOR ANAPHYLA XIS active Not Available Not Available No t Available Belviq 10 mg tablet Take 1 tablet twice a day by oral route. active Not Available Not Available No t Available Virtussin AC 10 mg-100 mg/5 mL oral liquid TK 10 ML PO Q 4 TO 6 H PRN COU 08/23 completed Not Available Not Available Not Available Fluvirin 7627-7967 45 mcg (15 mcg x 3)/0.5 mL intramusc ular suspensio n INJECT 0.5 ML INTRAMUS CULARLY DIRECTED . active Not Available Not Available No t Available Incruse Ellipta 62.5 mcg/actua tion powder for inhalatio n INHALE 1 PUFF PO D 04/20 completed Not Available Not Available Not Available Pazeo 0.7 % eye drops INSTILL 1 DROP IN EACH AFFECTED EYE ONCE A DAY FOR 30 DAYS active Not Available Not Available No t Available Saxenda 3 mg/0.5 mL (18 mg/3 mL) subcutane ous pen injector INJECT 1.8MG BY SQ ROUTE D 11/28 completed Not Available Not Available Not Available Breo Ellipta 200 mcg-25 mcg/dose powder for inhalatio n TAKE 1 PUFF BY MOUTH EVERY DAY 04/11 completed Not Available Not Available Not Available Nucala 100 mg subcutane ous solution 09/13 completed Not Available Not Available Not Available Cinqair 10 mg/mL intraveno us solution Inject by intraven ous route. 2021 active weight based doage, every 4 weeks Not Available Not Available Not Available Fluarix Quad (PF) 60 mcg (15 mcg x 4)/0.5 mL IM syringe active Not Available Not Available Not Available Trelegy Ellipta 100 mcg-62.5 mcg-25 mcg powder for inhalatio n 06/16 completed dose adjustme nt Not Available Not Available Not Available Shingrix (PF) 50 mcg/0.5 mL intramusc ular suspensio n, kit TO BE ADMINIST ERED BY PHARMACI ST FOR IMMUNIZA TION 11/25 completed Not Available Not Available Not Available Fasenra 30 mg/mL subcutane ous syringe 09/13 completed Not Available Not Available Not Available Flucelvax Quad (PF) 60 mcg (15 mcg x 4)/0.5 mL IM syringe ADM 0.5ML IM UTD active Not Available Not Available No t Available Fasenra Pen 30 mg/mL subcutane ous auto-inje ctor 04/11 completed Not Available Not Available Not Available Trelegy Ellipta 200 mcg-62.5 mcg-25 mcg powder for inhalatio n INHALE 1 PUFF DAILY RINSE MOUTH AFTER USE. active Not Available Not Available No t Available Wegovy 1 mg/0.5 mL subcutane ous pen injector Inject 1 mg every week by subcutan eous route as directed for 28 days. 09/23 completed Not Available Not Available Not Available Wegovy 0.25 mg/0.5 mL subcutane ous pen injector INJECT 0.25 MG EVERY WEEK BY SUBCUTAN EOUS ROUTE FOR 30 DAYS. active Not Available Not Available No t Available Wegovy 0.5 mg/0.5 mL subcutane ous pen injector Inject 0.5 mg every week by subcutan eous route as directed for 28 days. 09/23 completed Not Available Not Available Not Available Mounjaro 5 mg/0.5 mL subcutane ous pen injector Inject by subcutan eous route for 28 days. active Not Available Not Available No t Available Zepbound 5 mg/0.5 mL subcutane ous pen injector Inject 5 mg every week by subcutan eous route as directed for 28 days. active Not Available Not Available No t Available Zepbound 2.5 mg/0.5 mL subcutane ous pen injector Inject 2.5 mg every week by subcutan eous route as directed for 28 days, for 2. active Not Available Not Available No t Available Vitals Date Recorded Body height Body mass index (BMI) Body weight Body temperature Heart rate Oxygen saturation Oxygen saturation in Arterial blood by Pulse oximetry Systolic blood pressure Diastolic blood pressure Provider Name and Address Organization Details Last Updated DateTime 3 180.34 cm 31.7 kg/m2 156538. 47 g 97.9 [degF] 77 /min 98 % 98 % 160 mm[Hg] 100 mm[Hg] SHOAIB Newman [facility] [employer] [facility] 3 12:27:18 Date Recorded Body height Body mass index (BMI) Body weight Body temperature Heart rate Oxygen saturation Oxygen saturation in Arterial blood by Pulse oximetry Systolic blood pressure Diastolic blood pressure Provider Name and Address Organization Details Last Updated DateTime 3 180.34 cm 30.3 kg/m2 91271.5 4 g 97.7 [degF] 75 /min 96 % 96 % 124 mm[Hg] 78 mm[Hg] SHOAIB Newman [facility] [employer] [facility] 3 12:11:13 Date Recorded Body height Body mass index (BMI) Body weight Body temperature Oxygen saturation Oxygen saturation in Arterial blood by Pulse oximetry Heart rate Respiratory rate Systolic blood pressure Diastolic blood pressure Provider Name and Address Organization Details Last Updated DateTime 4 180.34 cm 34.6 kg/m2 715023. 91 g 98.2 [degF] 96 % 96 % 77 /min 16 /min 120 mm[Hg] 84 mm[Hg] Mariposa Velez RN [facility] [employer] [facility] 4 14:47:56 Date Recorded Body height Body mass index (BMI) Body weight Body temperature Heart rate Systolic blood pressure Diastolic blood pressure Provider Name and Address Organization Details Last Updated DateTime 4 180.34 cm 32.2 kg/m2 635369. 84 g 98.1 [degF] 68 /min 130 mm[Hg] 82 mm[Hg] Mariposa Velez RN [facility] [employer] [facility] 4 16:01:09 Date Recorded Body height Body mass index (BMI) Body weight Body temperature Heart rate Oxygen saturation Oxygen saturation in Arterial blood by Pulse oximetry Systolic blood pressure Diastolic blood pressure Provider Name and Address Organization Details Last Updated DateTime 4 180.34 cm 31.2 kg/m2 806008. 69 g 97.9 [degF] 75 /min 98 % 98 % 110 mm[Hg] 80 mm[Hg] MIKE Holloway [facility] RT [employer] [facility] 4 14:34:30 Social History Question Answer Notes LastModified by Organizat ion Details LastModified Time Tobacco Smoking Status Never Smoker Not Available [facility] 12/20/2022 16:43:40 What Is Your Level Of Alcohol Consumption? Occasional [id number] Information not available 12/20/2022 What Is Your Level Of Caffeine Consumption? Moderate [id number].[id number] Information not available 12/20/2022 In The 14 Days Before Symptom Onset, Have You Had Close Contact With A Laboratory-confirm ed COVID-19 While That Case Was Ill? No [id number].[id number] Information not available 12/20/2022 In The 14 Days Before Symptom Onset, Have You Had Close Contact With A Person Who Is Under Investigation For COVID-19 While That Person Was Ill? No MIGRATION.[id number] Information not available 12/20/2022 What Type Of Diet Are You Following? 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 [id number] Information not available 12/20/2022 How Much Tobacco Do You Smoke? No [id number].[id number] Information not available 12/20/2022 Do You Use Any Illicit Or Recreational Drugs? No MIGRATION.[id number] 8705 Information not available 12/20/2022 Have You Recently Traveled Abroad? No MIGRATION.[id number] 9113 Information not available 12/20/2022 Do You Have Any Dietary Restrictions? No MIGRATION.[id number] 5653 Information not available 12/20/2022 Sex: Female Functional Status None recorded. Mental Status None recorded. Family History Relationship Description Onset Age of this Age Resolved Age Notes LastModified by Organization Details LastModified Time Maternal Grandmother History of thyroid disorder [email or web address] Not available 09/23 14:21:17 Maternal Aunt Lupus erythematosu s [email or web address] Not available 09/23 14:21:17 Unspecified Relation Lupus erythematosu s [email or web address] Not available 09/23 14:21:17 Father Diabetes mellitus [id number] Not available 12/20/2022 16:43:46 Mother Diabetes mellitus [id number] Not available 12/20/2022 16:43:46 Mother Hypertensive disorder [id number] Not available 12/20/2022 16:43:46 Mother Family history of malignant neoplasm [email or web address] Not available 09/23 14:21:17 Medical History Condition Response SKIN PROBLEMS Y BOWEL PROBLEMS Y BACK / NECK PROBLEMS Y HYPERTENSION Y GERD/NAUSEA Y Gynecological HistoryNo gynecological history recorded. Obstetrics History GPAL:G 0 P 0 0 0 0 Immunizations Vaccine Type Date Status Note Provider Nam e and Address Organization Details Recorded Time MMR 2 completed Not Available [facility] 12/20/2022 16:45:58 Tdap 2 completed Not Available [facility] 12/20/2022 16:45:58 Influenza, split virus, quadrivalent, preservative 6 completed Not Available [facility] 12/20/2022 16:45:58 Influenza, split virus, quadrivalent, preservative 5 completed Not Available [facility] 12/20/2022 16:45:58 Past Encounters Encounter ID Performer Location Encounter Start Date Encounter Closed Date Diagnosis/Indication Diagnosis SNOMED-CT Code Diagnosis ICD10 Code Diagnosis Note [id number] [facility] Family [facility] Dmitry brooks [address] [place] [address] 02/03/2021 00:00:00 02/03/2021 12:37:29 [id number] [facility] [place] [address] [place] [address] 03/07/2021 00:00:00 03/07/2021 21:23:01 [id number] [facility] [place] [address] [place] [address] 09/13/2021 00:00:00 09/13/2021 12:38:10 [id number] [facility] [place] [address] [place] [address] 11/14/2021 00:00:00 11/14/2021 17:09:47 [id number] [facility] [place] [address] [place] [address] 01/20/2022 00:00:00 01/20/2022 13:47:07 [id number] [facility] [place] [address] [place] [address] 04/11/2022 00:00:00 04/11/2022 22:00:53 [id number] [facility] [place] [address] [place] [address] 06/12/2022 00:00:00 06/12/2022 13:41:17 [id number] [facility] [place] [address] [place] [address] 09/04/2022 00:00:00 09/04/2022 11:39:19 [id number] [facility] [place] [address] [place] [address] 09/06/2022 00:00:00 09/12/2022 21:24:01 [id number] Saúl Carpio MD [facility] [place] [address] [place] [address] 02/15/2023 12:12:10 02/15/2023 13:45:44 Sprain of right ankle 8090621041 9849265 S93.401A Will need xray in about 3 weeks. Obesity 035912549 E66.9 Taking phentermin e no help with weight loss. Will start wegovy. Will need to f/u 3 months. 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 Obesity 612737328 E66.9 Gastroesop hageal reflux disease without esophagitis 980968077 K21.9 Adult [facility] th examination 666608210 Z00.00 Asthma 212754848 J45.90 9 Hypertensive disorder 38 352763 I10 Persistent insomnia 1918 08569 G47.09 [id number] ELVIRA [place] [address] [place] [address] 08/05/2024 15:51:55 08/05/2024 16:28:25 Nausea 840555478 R11.0 Attention deficit hyperactivity disorder, 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 Obesity 257165225 E66.9 Irritable bowel syndrome 01957482 K58.9 Hypertensive disorder 38 740316 I10 Gastroesop hageal reflux disease without esophagitis 394326148 K21.9 Asthma 472546043 J45.90 9 [id number] ELVIRA Edmondson [address] [address] 09/23/2024 14:19:02 09/23/2024 15:01:21 Attention deficit hyperactivity disorder, predominantly inattentive type 80638827 F90.0 Hypertensive disorder 38 606201 I10 Sinusitis 33397871 J32.9 Gastroesop hageal reflux disease without esophagitis 258423576 K21.9 Obese 854269635 E66.9 Health Concerns Section Related Observation LastModified by Organization Detai ls LastModified Time None Recorded Concern Status LastModified by Organization Details LastModified Time None Recorded Advance Directives Directive None Recorded Payers Encounter Date Sequence Insurance Name Policy Number Policy Baird Covered Member ID Baird Member ID Guarantor Name 02/15/2023 1 [employer]PP[employer] [facility] Anila Antonella Rell [id number] Anila Zacarias 05/17/2023 1 [employer]PP[employer] [facility] Anila Zacarias [id number] Anila Zacarias 06/16/2024 1 [employer]PP[employer] [facility] Anila Zacarias [id number] Anila Zacarias 08/05/2024 1 [employer]PP[employer] [facility] Anila Antonella Rell [id number] Anila Zacarias 09/23/2024 1 [employer]PP[employer] [facility] Anila Berman Rell [id number] Anila Zacarias Notes Date Note Type Note Provider Name and Address Organization Details Recorded Time 02/15/2023 text/html Here today for c heck up of phentermine. Has not been losing weight on this.She rolled her ankle. Went to ER and had venous doppler. It was negative for DVT. Has pain on lateral right ankle and swelling. Has been elevating her foot. Can bare weight on it. Taking advil for the pain. Saúl Carpio MD [address], [place], [address], [facility] [employer] 02/16/2023 06:10:48 05/17/2023 text/html Here today for f /u of wegovy. Can not find wegovy. Has lost 10#sHas insomnia can not sleep until 3-5 am. Has taken melatonin gummies. It makes her too drowsy the next day. Has never tried anything else. Saúl Carpio MD [address], [place], [address], [email or web address] 05/17/2023 20:29:59 06/16/2024 text/html wants to try Weg ovy for weight loss ELVIRA Edmondson [address], [place], [address], [employer] [facility] [employer] 06/21/2024 10:44:24 08/05/2024 text/html symptoms all lif e . million projects started , always distracted. never diagnosed . n/v , abd cramping on wegovy . ELVIRA Ed[place] [address], [place], [address], [employer] 08/29/2024 17:57:25 09/23/2024 text/html needs to cut diana k a little methylphenidate 36 a little too strong . has siinus pressure , no fever , no one else sick ELVIRA Edmondson [address], [place], [address], [employer] [facility] [employer] 10/04/2024 16:18:39 OBGyn Episode No OBEpisode recorded.
--- OUTSIDE RECORDS SUMMARY | 2025-02-06 09:53 | XMS_ITS ---
Author Organization [facility] Address [address] [place] [address] Care Team Providers Care Remote Sensing Program Manager Name Role Phone Lasha Juarez Primary Care Provider Valentine Ferro [phone] Walter Valdez Unavailable Unavailable REASON FOR VISIT Refills Social History Sex Assigned At : Social History Observation Description Sex Assigned At Female Encounters Encounter Location Date Provider Diagnosis [facility] [address] [place] [address] 01/22/2025 Valentine Reyes Plan Of Treatment Next Appt Details Provider Name:Alexis Saba , 02/19/2025 11:00:00 AM, [address] [facility] [address] [place] [address], [place], [address], Provider Name:Alexis Saba , 02/26/2025 11:30:00 AM, [facility] [address], [place], [address], Progress Notes * Anila ZCAARIASOB: (44 yo F)Acc No.[id number]:01/22/2025 Patient: Antonella BUCKAnila :1980 A ge:44 Y S ex:Female Address:[address] [place] [address], [address] * * Date:
--- OUTSIDE RECORDS SUMMARY | 2025-02-06 09:53 | XMS_ITS | Referral Summary ---
Author Organization [facility] Healthcare Address [address] [place] [address] Care Team Providers Care Account Support Analyst Name Role Phone Saúl Carpio MD Primary Care Provider [phone] Carina Anderson MD Unavailable [phone] Allergies Active Allergy Reactions Criticality Noted Date Comments Amoxicillin Shortness of breath High 02/05/2021 Penicillins Unknown 01/01/2018 Medications amLODIPine (NORVASC) 10 mg tablet Take 1 tablet (10 mg total) by mouth daily 03/29/20 21 Active cetirizine (ZyrTEC) 10 mg tablet Take 1 tablet (10 mg total) by mouth daily 02/14/20 21 Active ergocalciferol (VITAMIN D) 50,000 unit capsule Take 1 capsule (50,000 Units total) by mouth once a week Every Sunday03/29/20 21 Active famotidine (PEPCID) 40 mg tablet Take 0.5 tablets (20 mg total) by mouth Take 2 tablets 20mg a total of 40mg at night 04/26/20 21 Active olmesartan (BENICAR) 20 mg tablet Take 1 tablet (20 mg total) by mouth daily 03/16/[address] (PROTONIX) 40 mg EC tablet Take 1 tablet (40 mg total) by mouth daily 05/04/20 21 Active phentermine (ADIPEX-P) 37.5 mg tablet as needed 01/16/20 21 Active fluticasone propionate (FLONASE) 50 mcg/actuation nasal spray Administer 2 sprays into affected nostril(s) 2 (two) times a day 12/16/19 21 Active azelastine (ASTELIN) 137 mcg (0.1 %) nasal spray Administer 2 sprays into affected nostril(s) 2 (two) times a day 12/16/19 21 Active diphenoxylate-atro pine (LOMOTIL) 2.5-0.025 mg per tablet Take by mouth as needed 11/17/19 22 Active hydrOXYzine (ATARAX) 25 mg tablet Take 1 tablet (25 mg total) by mouth as needed 12/01/19 22 Active ondansetron ODT (ZOFRAN-ODT) 4 mg disintegrating tablet as needed 10/06/20 21 Active hyoscyamine (LEVSIN) 0.125 mg tabletIndications: Urinary Incontinence Take 1 tablet (0.125 mg total) by mouth every 6 (six) hours as needed for cramping or diarrhea 100 tablet 01/14/20 22 Active clonazePAM (KlonoPIN) 0.5 mg tablet Take 1 tablet (0.5 mg total) by mouth as needed As needed Active azaTHIOprine (IMURAN) 50 mg tabletIndications: Eosinophilic granulomatosis with polyangiitis (EGPA) ([facility]) Take 1 tablet (50 mg total) by mouth daily 90 tablet 05/02/20 22 Active Additional Information Patient taking differently:50 mg oral Daily,Has not yet started due to wanting a , Reported on 05/09/2022 albuterol 5 mg/mL nebulizer solution Take 0.5 mL (2.5 mg total) by nebulization every 6 (six) hours as needed for wheezing Active reslizumab (Cinqair) 10 mg/mL solution 3 mg/kg every 28 (twenty-eight) days Dosage may change/every 4 weeks Active fluticasone-umecli din-vilanter (Trelegy Ellipta) 200-62.5-25 mcg inhaler Inhale 1 puff daily RINSE MOUTH AFTER USE. 90 each 11 11/14/19 24 Active benzonatate (TESSALON) 100 mg capsuleIndications :Cough Take 1 capsule (100 mg total) by mouth 3 (three) times a day as needed for cough 42 capsule 01/14/20 Active albuterol HFA (PROVENTIL HFA,VENTOLIN HFA,PROAIR HFA) 90 mcg/actuation inhalerIndications :Severe persistent asthma, unspecified whether complicated (HCC) Inhale 2 puffs every 6 (six) hours as needed for wheezing 1 each 05/14/20 Active Active Problems Problem Noted Date Diagnosed Date Severe persistent asthma 12/11/2023 Acute bronchitis 01/01/2018 Bronchospasm, acute 01/01/2018 Asthma with acute exacerbation 01/01/2018 Fallopian insufflation for fertility testing 06/2017 Encounter for preventive health examination 04/22 Social History Tobacco Use Types Packs/Day Years Used Date Smoking Tobacco: Never Smokeless Tobacco: Never AUDIT-C Answer Date Recorded Q1: How often do you have a drink containing alc ohol? 2-4 times a month 01/13/2022 Average Number of Drinks Not on file 022 Frequency of Binge Drinking Not on file 12/21 Personal Safety Answer Date Recorded Getting School Help Needed Not on file 11/08 Comments Unknown Sex and Gender Information Value Date Recorded Sex Assigned at Not on file Legal Sex Female 3:52 PM CDT Gender Identity Female 08/26/2021 2:20 AM CDT Sexual Orientation Straight 08/26/2021 2: 20 AM CDT Last Filed Vital Signs Vital Sign Reading Time Taken Comments Blood Pressure 114/68 05/14/2024 12:04 PM CDT Pulse 79 05/14/2024 12:04 PM CDT Temperature 37 C (98.6 F) 05/14/2024 12:04 PM CDT Respiratory Rate 18 05/14/2024 12:04 PM CDT Oxygen Saturation 98% 05/14/2024 12:04 PM CDT Inhaled Oxygen Concentration - - Weight 103.9 kg (229 lb) 05/14/2024 12:04 PM CDT Height 170.2 cm (5' 7 ) 05/14/2024 12:04 PM CDT Body Mass Index 35.87 05/14/2024 12:04 PM CDT Plan of Treatment Not on file Procedures Procedure Name Priority Date/Time Associated Diagnosis Comments HEPATITIS C ANTIBODY Routine 03/07/2022 4:53 PM CDT Other eosinophilia from Last 3 Months or Most Recently Relevant to Health Maintenance Results * Hepatitis C antibody (03/07/2022 4:53 PM CDT) Hep C Ab Nonreactive Nonreactive [facility] Comment:Antibodies to HCV no t detected. Does NOT exclude the possibility of recent exposure to HCV. Blood 03/07/2022 4:53 PM CDT 03/07/2022 5:48 PM CDT us Jaylon Barney MD LAB MICROBIOLOGY - GENERAL OR DERABLES Final Result [facility] Department [place] [address] from Last 3 Months or Most Recently Relevant to Health Maintenance Insurance [id number] [address] Care Teams Account Support Analyst Relationship Specialty Start Date End Date Saúl Carpio MD [facility] [place] [address] PCP - General 01/01/18 Carina Anderson MD [address] [id number] 01/01/18
--- OUTSIDE RECORDS SUMMARY | 2025-02-06 09:53 | XMS_ITS | Continuity of Care Document ---
Author Organization [facility] Address [address] [place] [address] Phone Care Team Providers Care Wheat Washer Name Role Phone Fantasma Ray MD Unavailable Unavailable Advance Directives Directive Yes / No Effective Date File Name No Information Encounters Encounter Description Practice Location Reason(s) For Visit Diagnoses Date Provider Providers Copied on Encounter [facility], [address], [place], [place], [id number], [place] tel:[phone] [facility] No Information 0 Flor Meek. [address] [facility], [facility] [address], [place], [address], [place]. tel: [phone] Family History Family Member Type Diagnosis Age At Onset No Information Payers Payer name Insurance type Covered libertarian ID Authoriza tion(s) No Information Social History Type Description Quantity Date Captured Comments Alcohol Use Details Unknown Caffeine Use Details Unknown Tobacco Use Status No Information Smoking Status No Information Sex Female Chief Complaint And Reason For Visit No Information Reason For Referral Reason For Referral No Information History Of Present Illness Encounter Date Complaint History Of Prese nt Illness No Information Functional Status Date Functional Assessmen t No Information Instructions Date Instruction Additional Infor mation No Information Assessments Type Assessment Date No Information Patient Care Teams Name Effective Dates (start - stop) Status Members No Information
--- OUTSIDE RECORDS SUMMARY | 2025-02-06 09:53 | XMS_ITS | Clinical Summary ---
Author Organization [facility] Address [address] [place] [address] Care Team Providers Care Cardiac Cath Lab Manager Name Role Phone Meagan Markham MD Primary Care Provider + Source Comments [facility],non-owned Affiliates and Associated Physician Practices is amultiple site organization consisting of ambulatory clinics and hospital sitesin [place], [place], [place] and [place]. This disclosure is being madepursuant to the Care Everywhere program and may not contain all information available regarding this patient. 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 Gender Identity Not on file Sexual Orientation Not on file Plan of Treatment Health Maintenance Due Date Last Done Comments COLOGUARD (AGES 45-75) - COL ON CA SCREENING 1979 COLON MONITORING 1979 COLONOSCOPY - COLON CA SCREENING 1979 CT COLONOGRAPHY - COLON CA SCREENING 1979 Colorectal Cancer Screening 1979 FIT - COLON CA SCREENING 1979 FLEX SIG - COLON CA SCREENING 1979 LIPID TESTING 1979 MAMMOGRAM 1979 HIV SCREENING 1994 HEPATITIS C SCREENING 06/18/1997 DTAP/TDAP/TD VACCINES (1 - Tdap) 1998 HEPATITIS B VACCINE (1 of 3 - 19+ 3-dose series) 1998 COVID-19 VACCINE ( - 2023-2 5 season) 2024 DEPRESSION SCREENING 10/22/2024 INFLUENZA VACCINE (Season Ended) 2025 ZOSTER VACCINE (1 of 2) 2029 HIB VACCINE Aged Out No longer eligi ble based on patient's age to complete this topic HPV VACCINE Aged Out No longer eligi ble based on patient's age to complete this topic MENINGOCOCCAL (Group B) VACC INE SHARED DECISION-MAKING Aged Out No longer eligibl e based on patient's age to complete this topic MENINGOCOCCAL GROUPS A/C/Y/W VACCINE Aged Out No longer eligible b ased on patient's age to complete this topic PNEUMOCOCCAL VACCINE Aged Out No long er eligible based on patient's age to complete this topic Care Teams Cardiac Cath Lab Manager Relationship Specialty Start Date End Date Meagan Markham MD [address] [place] [address] PCP - General 12/03/18
--- OUTSIDE RECORDS SUMMARY | 2025-02-06 09:53 | XMS_ITS | Clinical Summary ---
Author Organization [facility] Healthcare Address [address] [place] [address] Care Team Providers Care Kiln Operator Name Role Phone Saúl Carpio MD Primary Care Provider [phone] Carina Anderson MD Unavailable [phone] Allergies Active Allergy Reactions Criticality Noted Date [...] mg tabletIndications: Eosinophilic granulomatosis with polyangiitis (EGPA) ([facility]) Take 1 tablet (50 mg total) by [...] inhalerIndications :Severe persistent asthma, unspecified whether complicated ([facility]) Inhale 2 puffs every 6 (six) hours as needed for wheezing 1 each 05/14/20 Active Active Problems Problem Noted Date Diagnosed Date Severe persistent asthma 12/11/2023 Acute bronchitis 01/01/2018 Bronchospasm, acute 01/01/2018 Asthma with acute exacerbation 01/01/2018 Fallopian insufflation for fertility testing 06/2017 Encounter for preventive health examination 04/22 Medical History Medical History Date Comments Asthma Eosinophilic granulomatosis with polyangiitis (E GPA) ([facility]) Family History Medical History Relation Name Comments Lupus Cousin Lupus Other Aunt Relation Name Status Comments Cousin Alive Other Aunt Alive Social History Tobacco Use Types Packs/Day Years [...] Orientation Straight 08/26/2021 2: 20 AM CDT Obstetrics History Last Filed Vital Signs Vital Sign Reading [...] 05/14/2024 12:04 PM CDT Plan of Treatment Health Maintenance Due Date Last Done Comments Breast Cancer Screening-Mammogram 1979 Cervical Cancer Screening 1979 Colon Cancer Screening-Colonoscopy 1979 Depression Screening 1979 Hepatitis B Screening 1997 Regular Well Visit/Exam 18-64 1997 Pneumococcal vaccine <65 (1 of 2 - PCV) 1998 Influenza Vaccine (#1) 2024 0, 10/01/2019, 09/02/2018, Additional history exists DTaP/Tdap/Td Vaccine (2 - Td or Tdap) 09/06/2032 09/06/2022 Hepatitis C Screening Completed 03/07/2022 HPV Vaccines Aged Out No longer eligi ble based on patient's age to complete this topic Procedures Procedure Name Priority Date/Time Associated Diagnosis Comments HEPATITIS C ANTIBODY Routine 03/07/2022 4:53 PM CDT Other eosinophilia from Last 3 Months or Most Recently Relevant to Health Maintenance Results * Hepatitis C antibody (03/07/2022 4:53 PM CDT) Hep C Ab Nonreactive Nonreactive [facility] Comment:Antibodies to HCV no t detected. Does NOT exclude the possibility of recent exposure to HCV. Blood 03/07/2022 4:53 PM CDT 03/07/2022 5:48 PM CDT us Jaylon Barney MD LAB MICROBIOLOGY - GENERAL OR DERABLES Final Result [facility] Department [place] [address] from Last 3 Months or Most Recently Relevant to Health Maintenance Insurance [facility] [id number] [place] Care Teams Kiln Operator Relationship Specialty Start Date End Date Saúl Carpio MD [address] [place] [address] PCP - General 01/01/18 Carina Anderson MD [address] [facility] [address] [place] [address] 01/01/18
--- OUTSIDE RECORDS SUMMARY | 2025-02-06 09:53 | XMS_ITS | Clinical Summary ---
Author Organization [facility] Address [address] [facility], [facility] [address] [place] [address] Phone Care Team Providers Care Finished Goods Planner Name Role Phone Saúl Carpio MD Primary Care Provider [phone] Allergies Active Allergy Reactions Criticality Noted Date Comments Amoxicillin Unknown 02/11/2021 Penicillins Unknown 02/11/2021 Medications spironolactone (ALDACTONE) 25 MG TabletIndicati ons:Other ascites Take 1 tab daily by mouth for 10 days then just as needed. 30 Tablet 2 1 Active Additional Information Patient taking differently: DAILY, Take 1 tab daily by mouth for 10 days then just as needed., Reported on 03/23/2021 ProAir HFA 108 (90 Base) MCG/ACT Aerosol Solution every 4 hours as needed. 1 Active amLODIPine (NORVASC) 10 MG Tablet every morning. 1 Active azelastine (ASTELIN) 0.1 % Solution 2 Sprays by Nasal route 2 times daily. 1 Active cetirizine (ZyrTEC) 10 MG Tablet daily. 1 Active clonazePAM (KlonoPIN) 0.5 MG Tablet every 4 hours as needed for Anxiety. 1 Active ergocalciferol (VITAMIN D) 35213 UNIT Capsule once a week. 1 Active famotidine (PEPCID) 40 MG Tablet every evening. 1 Active Breo Ellipta 200-25 MCG/INH AEROSOL POWDER, BREATH ACTIVATED TAKE 1 PUFF BY MOUTH EVERY DAY 1 Active fluticasone (FLONASE) 50 MCG/ACT Suspension 2 Sprays by Nasal route 2 times daily. 1 Active Nucala 100 MG Recon Soln by Subcutaneous route every 28 days. 1 Active olmesartan (BENICAR) 20 MG Tablet every morning. 1 Active ondansetron (ZOFRAN) 8 MG Tablet every 8 hours as needed. 1 Active pantoprazole (PROTONIX) 20 MG Tablet Delayed Response 2 times daily. 1 Active Phentermine HCl 37.5 MG Tablet TAKE 1 AND 1/2 TABLETS BY MOUTH EVERY DAY 1 Active EPINEPHrine (Auvi-Q) 0.3 MG/0.3ML Solution Auto-injector 0.3 mg by Intramuscular route once as needed. Active hydrOXYzine (ATARAX) 25 MG Tablet Take 25 mg by mouth every 6 hours as needed for Itching. Active methocarbamol (ROBAXIN) 500 MG Tablet Take 1,000 mg by mouth 4 times daily as needed. Active Olopatadine HCl (Pazeo) 0.7 % Solution Place in affected eye(s) as needed. Active calcium carbonate (TUMS EX) 750 MG Chewable Tablet Take 750 mg by mouth as needed. Active predniSONE (DELTASONE) 20 MG Tablet Take 40 mg by mouth daily. Active hyoscyamine (ANASPAZ, LEVSIN) 0.125 MG Tablet Take 0.125 mg by mouth every 6 hours as needed. Active fluconazole (DIFLUCAN) 200 MG Tablet Take 1 Tablet by mouth daily. 21 Tablet 1 Active Active Problems No known active problems Immunizations Immunization Administration Dates Next Due Influenza Vaccine, MDCK,quad rivalent, pres free 07/29/2020,10/01/2019 Influenza Vaccine, Quadrivalent, PF 11/09/2017 Influenza, Injectable, Quadrivalent 10/05/2016,1 11/22/2014 Influenza, Seasonal, Injectable, Undefined 09/02,09/11/2017,09/28/2014 Varicella Vaccine Live 07/10/2018,03/06/2018 Zoster Vaccine Recombinant 07/01/2018,03/05/2018 Family History Medical History Relation Name Comments Diabetes Father Cervical Cancer Mother Diabetes Mother Anemia Sister Relation Name Status Comments Father Mother Sister Social History Tobacco Use Types Packs/Day Years Used Date Smoking Tobacco: Never Smokeless Tobacco: Never Tobacco Cessation:Counseling Given: No Alcohol Use Standard Drinks/Week Comments Yes 0 (1 standard drink = 0.6 oz pur e alcohol) socially Sexually Active Control Partners Comments Not Currently Comments No Sex and Gender Information Value Date Recorded Sex Assigned at Not on file Legal Sex Female 10:52 PM CDT Gender Identity Not on file Sexual Orientation Not on file Last Filed Vital Signs Vital Sign Reading Time Taken Comments Blood Pressure 93/59 04/11/2021 9:35 AM CDT Pulse 64 04/11/2021 9:35 AM CDT Temperature 37 C (98.6 F) 04/11/2021 7:33 AM CDT Respiratory Rate 16 04/11/2021 9:35 AM CDT Oxygen Saturation 100% 04/11/2021 9:35 AM CDT Inhaled Oxygen Concentration - - Weight 100.7 kg (222 lb) 03/23/2021 1:00 PM CDT Height 170.2 cm (5' 7 ) 03/23/2021 1:00 PM CDT Body Mass Index 34.77 03/23/2021 1:00 PM CDT Plan of Treatment Health Maintenance Due Date Last Done Comments Hepatitis C Virus (HCV) Screening 1980 TdaP Immunization 1980 Hepatitis B Immunization (1 of 3 - 19+ 3-dose series) 1998 Influenza Immunization (#1) 2024 10/0 05/2020, 10/01/2019, 09/02/2018, Additional history exists SARS-COV-2 Immunization (2023- season) 2024 06/08/2021, 05/18/2021 Colonoscopy 04/11/2031 04/11/2021 Colorectal Cancer Screening 04/11/2031 Respiratory Syncytial Virus (RSV) Immunization (Adult) (1 - 1-dose 75+ series) 2054 04/11/2021 Meningococcal Immunization (ACWY) Aged Out No longer eligible based on patient's age to complete this topic Pneumococcal Immunization Combined Aged Out No longer eligible based on patient's age to complete this topic Rotavirus Immunization Aged Out No lo nger eligible based on patient's age to complete this topic Insurance [employer] Care Teams Finished Goods Planner Relationship Specialty Start Date End Date Saúl Carpio MD [address] [place] [address] PCP - General Baker Helper 02/21/21
--- OUTSIDE RECORDS SUMMARY | 2025-02-06 09:53 | XMS_ITS ---
Author Organization [facility] Address [address] [place] [address] Care Team Providers Care Outside Solar Sales Consultant Name Role Phone Lasha Juarez Primary Care Provider Valentine Ferro [phone] Walter Valdez Unavailable Unavailable REASON FOR VISIT Chronic care management Social History Sex Assigned At : Social History Observation Description Sex Assigned At Female Encounters Encounter Location Date Provider Diagnosis [facility] [address] [place] [address] 01/27/2025 Valentine Reyes Plan Of Treatment Next Appt Details Provider Name:Alexis Saba , 02/19/2025 11:00:00 AM, [address] [place] [address], [place], [address], Provider Name:Alexis Saba , 02/26/2025 11:30:00 AM[facility] [address] [facility] [address], [place], [address], Progress Notes * Anila ZACARIASOB: (44 yo F)Acc No.[id number]:01/27/2025 Patient: Antonella SmithAnlia PLASCENCIA :1980 A ge:44 Y S ex:Female Address:[address] [place] [address], [id number] * true * Date: Generated for Thor de anda/Christiano/Eduitting on: 0 02/06/2025 09:52 AM CDT
--- OUTSIDE RECORDS SUMMARY | 2025-02-06 09:53 | XMS_ITS | Patient Health Record ---
Author Organization [facility] Address [address] [place] [address] Care Team Providers Care Manufacturing Design Engineer Name Role Phone Larry Lasha Primary Care Provider UnavailValentine Lester Unavailable [phone] Walter Valdez Unavailable Unavailable Alexis Saba Unavailable [phone] Liliane Navarro Unavailable [phone] Estefanía Prasad Unavailable [phone] [employer], Provider Unavailable Unavailab le Allergies Allergen (clinical drug ingredient) Drug/Non Drug Allergy documented on EMR Reaction Allergy Type Onset Date Status Penicillin respiratory distress (IM injection) Drug Allergy Active Results Component Value Reference Range Notes -Vitamin D, 25-Hydroxy Reviewed date:04/11/2024 01:16:38 PM Interpretation:Normal Performing Lab:[facility] [id number], Phone - [phone], Director - PhDRicchialicei Notes/Report: Vitamin D, 25-Hydroxy 64.2 30.0-100.0 ng/mL Vitamin D deficiency has been defined by the [place] [employer] and an Endocrine Society practice guideline as a level of serum 25-OH vitamin D less than 20 ng/mL (1,2). The Endocrine Society went on to further define vitamin D insufficiency as a level between 21 and 29 ng/mL (2). 1. IOM ([place] [employer]). 2010. Dietary reference intakes for calcium and D. [place]: The National Academies Press. 2. Pedro Castillo, Catia SORENSEN et al. Evaluation, treatment, and prevention of vitamin D deficiency: an Endocrine Society clinical practice guideline. JCEM. 2010; 96(7):1911-30. HRT Female Pre Pellet Reviewed date:09/02/2024 12:23:56 PM Interpretation:Abnormal Performing Lab:[facility], [address] [place] [id number], Phone - [phone], Director - Mateo Notes/Report: Glucose 77 70-99 mg/dL BUN 10 6-24 mg/dL Creatinine 1.11 0.57-1.00 mg/dL eGFR 62 >59 mL/min/1.73 BUN/Creatinine Ratio 9 9-23 Sodium 138 134-144 mmol/L Potassium 4.3 3.5-5.2 mmol/L Chloride 102 96-106 mmol/L Carbon Dioxide, Total 24 20-29 mmol/L Calcium 9.8 8.7-10.2 mg/dL Protein, Total 7.5 6.0-8.5 g/dL Albumin 4.2 3.9-4.9 g/dL Globulin, Total 3.3 1.5-4.5 g/dL Bilirubin, Total 0.4 0.0-1.2 mg/dL Alkaline Phosphatase 61 44-121 IU/L AST (SGOT) 22 0-40 IU/L ALT (SGPT) 15 0-32 IU/L Vitamin B12 >2000 232-1245 pg/mL Vitamin D, 25-Hydroxy 87.2 30.0-100.0 ng/mL Vitamin D deficiency has been defined by the [place] [employer] and an Endocrine Society practice guideline as a level of serum 25-OH vitamin D less than 20 ng/mL (1,2). The Endocrine Society went on to further define vitamin D insufficiency as a level between 21 and 29 ng/mL (2). 1. IOM ([place] [employer] [place]). 2010. Dietary reference intakes for calcium and D. [place]: The National Academies Press. 2. Pedro Castillo, Catia SORENSEN, et al. Evaluation, treatment, and prevention of vitamin D deficiency: an Endocrine Society clinical practice guideline. JCEM. 2010; 96(7):1911-30. TSH 1.410 0.450-4.500 uIU/mL Triiodothyronine (T3), Free 3.3 2.0-4.4 pg/mL T4,Free(Direct) 1.10 0.82-1.77 ng/dL Thyroid Peroxidase (TPO) Ab 14 0-34 IU/mL Testosterone <3 4-50 ng/dL FSH 75.2 Adult Female Range Follicular phase 3.5 - 12.5 Ovulation phase 4.7 - 21.5 Luteal phase 1.7 - 7.7 Postmenopausal 25.8 - 134.8 Estradiol <5.0 Adult Female Range Follicular phase 12.5 - 166.0 Ovulation phase 85.8 - 498.0 Luteal phase 43.8 - 211.0 Postmenopausal <6.0 - 54.7 1st trimester 215.0 - >4300.0 Ayaz ECLIA methodology WBC 6.7 3.4-10.8 x10E3/uL RBC 4.75 3.77-5.28 x10E6/uL Hemoglobin 12.5 11.1-15.9 g/dL Hematocrit 40.8 34.0-46.6 % MCV 86 79-97 fL MCH 26.3 26.6-33.0 pg MCHC 30.6 31.5-35.7 g/dL RDW 16.4 11.7-15.4 % Platelets 279 150-450 x10E3/uL Neutrophils 53 Not Estab. % Lymphs 40 Not Estab. % Monocytes 7 Not Estab. % Eos 0 Not Estab. % Basos 0 Not Estab. % Neutrophils (Absolute) 3.5 1.4-7.0 x10E3/uL Lymphs (Absolute) 2.7 0.7-3.1 x10E3/uL Monocytes(Absolute) 0.4 0.1-0.9 x10E3/uL Eos (Absolute) 0.0 0.0-0.4 x10E3/uL Baso (Absolute) 0.0 0.0-0.2 x10E3/uL Immature Granulocytes 0 Not Estab. % Immature Grans (Abs) 0.0 0.0-0.1 x10E3/uL -Uric Acid, Serum Reviewed date:09/02/2024 12:20:16 PM Interpretation:Normal [facility]forming [facility] [place], [address] [place], [place] [id number], Phone - [phone], Director - [facility] Notes/Report: Uric Acid 5.1 2.6-6.2 mg/dL Therapeutic ta rget for gout patients: <6.0 -Hemoglobin A1c Reviewed date:09/02/2024 12:21:33 PM Interpretation:Abnormal Performing Lab:[address] [id number], Phone - [phone], Director - [facility] Notes/Report: Hemoglobin A1c 5.9 4.8-5.6 % . Prediabetes: 5.7 - 6.4 Diabetes: >6.4 Glycemic control for adults with diabetes: <7.0 -Urinalysis, Complete Reviewed date:09/02/2024 12:21:38 PM Interpretation: Performing Lab:[address] [id number], Phone - [phone], Director - [facility] Notes/Report: Specific Williams 1.022 1.005-1.030 pH 6.0 5.0-7.5 Urine-Color Yellow Yellow Appearance Clear Clear WBC Esterase Negative Negative Protein Negative Negative/Trace Glucose Negative Negative Ketones Negative Negative Occult Blood Negative Negative Bilirubin Negative Negative Urobilinogen,Semi-Qn 0.2 0.2-1.0 mg/dL Nitrite, Urine Negative Negative Microscopic Examination Micr oscopic follows if indicated. Microscopic Examination See below: Micr oscopic was indicated and was performed. WBC 0-5 0 - 5 /hpf RBC None seen 0 - 2 /hpf Epithelial Cells (non renal) 0-10 0 - 10 /hpf Casts None seen None seen /lpf Bacteria Few None seen/Few -Insulin, Fasting Reviewed date:09/02/2024 12:21:15 PM Interpretation:Normal Performing Lab:[address] [id number], Phone - [phone], Director - [facility] Notes/Report: Insulin 24.9 2.6-24.9 uIU/mL -Ferritin, Serum Reviewed date:12/01/2024 12:18:45 PM Interpretation:Normal Performing Lab:[address] [id number], Phone - [phone], Director - [facility] Notes/Report: Ferritin 28 15-150 ng/mL -C-Reactive Protein, Quant Reviewed date:09/02/2024 12:18:53 PM Interpretation:Normal Performing Lab:[address] [id number], Phone - [phone], Director - [facility] Notes/Report: C-Reactive Protein, Quant 3 0-10 mg/L -Triiodothyronine (T3),Free, Serum Reviewed date:12/01/2024 12:18:45 PM Interpretation:Normal Performing Lab:[address] [id number], Phone - [phone], Director - [facility] Notes/Report: Triiodothyronine (T3), Free 3.1 2.0-4.4 pg/mL -T4 and TSH Reviewed date:09/02/2024 12:17:32 PM Interpretation:Normal Performing Lab:[address] [id number], Phone - [phone], Director - [facility] Notes/Report: TSH 1.420 0.450-4.500 uIU/mL Thyroxine (T4) 9.0 4.5-12.0 ug/dL -Lipid Panel With LDL/HDL Ra ramona Reviewed date:09/02/2024 12:19:55 PM Interpretation:Abnormal Performing Lab:[address] [id number], Phone - [phone], Director - [facility] Notes/Report: Cholesterol, Total 186 100-199 mg/dL Triglycerides 107 0-149 mg/dL HDL Cholesterol 40 >39 mg/dL VLDL Cholesterol Alejandro 20 5-40 mg/dL LDL Chol Calc ([facility]) 126 0-99 mg/dL LDL/HDL Ratio 3.2 0.0-3.2 ratio LDL/HDL Ratio Men Women 1/2 Avg.Risk 1.0 1.5 Avg.Risk 3.6 3.2 2X Avg.Risk 6.2 5.0 3X Avg.Risk 8.0 6.1 -IGF-1 Reviewed date:12/01/2024 12:18:45 PM Interpretation: [facility]forming [facility], [address], [place] [id number], Phone - [phone], Director - Nataliya Notes/Report: Insulin-Like Growth Factor I 131 74-239 ng/mL Apo A1 + B + Ratio Reviewed date:12/01/2024 12:18:45 PM Interpretation: [facility]forming [facility], [address], [place] [id number], Phone - [phone], Director - Nataliya Notes/Report: Apolipoprotein A-1 122 116-209 mg/dL Apolipoprotein B 98 <90 mg/dL Desirable < 90 Borderline High 90 - 99 High 100 - 130 Very High >130 ASCVD RISK THERAPEUTIC TARGET CATEGORY APO B (mg/dL) . Very High Risk <80 (if extreme risk <70) High Risk <90 Moderate Risk <90 Apolipo. B/A-1 Ratio 0.8 0.0-0.6 ratio Apolipoprotein B/A-1 Ratio Male Female Avg.Risk 0.7 0.6 2X Avg.Risk 0.9 0.9 3X Avg.Risk 1.0 1.0 Spirometry Reviewed date:11/02/2024 02:07:25 PM Interpretation:Normal Performing Lab: Notes/Report: Normal SpiroPreBronchodilator_FVC 2.94 SpiroPostBronchodilator_FEF2 5 _75 0 SpiroPreBronchodilator_FEF25 _ 75 2.75 SpiroPreBronchodilator_FEV1 2.5 SpiroPrecentPredictionPost_F E F25_75 0 SpiroPrecentPredictionPost_F E V1 0 SpiroPrecentPredictionPost_F E V1_OVER_FVC 0 SpiroPrecentPredictionPost_F V C 0 SpiroPrecentPredictionPre_FE F 25_75 85.1 SpiroPrecentPredictionPre_FE V 1 95.1 SpiroPrecentPredictionPre_FE V 1_OVER_FVC 105.3 SpiroPrecentPredictionPre_FVC 91.3 SpiroPredicted_FEF25_75 3.23 SpiroPreBronchodilator_FEV1_ O VER_FVC 85.17 SpiroPreBronchodilator_PEF 5.52 SpiroPostBronchodilator_FVC 0 SpiroPostBronchodilator_FEV1 0 SpiroPostBronchodilator_FEV1 _ OVER_FVC 0 SpiroPostBronchodilator_PEF 0 SpiroPredicted_FVC 3.22 SpiroPredicted_FEV1 2.63 SpiroPredicted_FEV1_OVER_FVC 80.86 SpiroPredicted_PEF 6.48 Reason For Referral No Information Medications Medication SIG (Take, Route, Frequency, Duration) Notes Start Date End Date Status PANTOPRAZOLE 40 mg 1 tab(s) orally once a day for 90 days Not-Taking AUVI -Q 0.3 mg as directed intramuscularly once for 30 day(s) Active HYDROXYZINE hydrochloride 25 mg 1 tab(s) orally TID, PRN for 15 day(s) Active TRIAMCINOLONE TOPICAL 0.1% 1 marco applied topically BID, PRN for 30 day(s) Active AZELASTINE HYDROCHLORIDE NASAL 137 mcg/inh 2 spray(s) intranasally 2 times a day for 90 days Active FLONASE 50 mcg/inh 1 spray(s) intranasally bid for 90 days Active ONDANSETRON HYDROCHLORIDE 4 mg 1 tab(s) orally 3 times a day, PRN for 10 day(s) Active CINQAIR 10 mg/mL as directed intravenously every 4 weeks Not-Taking ZyrTEC Allergy 10 MG 1 tab(s) orally onc e a day for 90 days Not-Taking PREDNISONE 20 mg 2 tab(s) orally once a day for 5 days Not-Taking WEGOVY (0.25 MG DOSE) 0.25 MG/0.5 ML (0.25 MG DOSE) DIRECTED SUBCUTANEOUSLY ONCE A WEEK *Please review for potential replacement for e-prescription and drug interaction check* Not-Taking PANTOPRAZOLE 40 mg 1 tab(s) orally once a day for 90 days Not-Taking ZYRTEC 10 mg 1 tab(s) orally once a day for 90 days Not-Taking ALBUTEROL 2.5 mg/3 mL (0.083%) 3 ml by nebulizer Q4-6 hours, PRN for 90 days Active IPRATROPIUM BROMIDE NASAL 42 mcg/inh 2 spray(s) intranasally up to 4 times a day as needed for 30 days Active FUMIGATOR AND STERILIZER Thyroid 30 MG 1 tablet on an empty stomach Orally Once a day for 30 days 10/30/2024 Active Zepbound 2.5 MG/0.5ML 0.5 mL Subcutaneous Active Methylphenidate HCl ER 27 MG 1 tablet in the morning Orally Once a day Active Fasenra 30 MG/ML 1 null Subcutaneous q 4 weeks for 30 days Active Cetirizine HCl 10 MG 1 tablet Orally Onc e a day for 90 days Active FAMOTIDINE 20 mg 1 tab(s) orally 2 times a day for 90 days Active TRELEGY ELLIPTA 200 mcg-62.5 mcg-25 mcg/inh 1 puff(s) inhaled once a day for 30 day(s) Active PROAIR HFA 90 mcg/inh 2 puff(s) inhaled Q4-6 hours, PRN for 90 days Active FLUTICASONE PROPIONATE 50 mcg/inh as directed in each nostril once a day for 90 days Active Albuterol Sulfate (2.5 MG/3ML) 0.083% 3 ml by nebulizer Q4-6 hours, PRN for 90 days Active Ipratropium [place] 0.06 % 2 spray(s) intranasally up to 4 times a day as needed for 30 days Active Pantoprazole Sodium 40 MG 1 tablet 1/2 to 1 hour before morning meal Orally Once a day for 90 days Active Auvi-Q 0.3 MG/0.3ML as directed intramuscularly once for 30 day(s) Active Vitamin D3 1.25 MG (29794 UT) 1 cap(s) orally once a week for 30 day(s) Active Famotidine 20 MG 1 tab(s) orally 2 times a day for 90 days Active Cinqair 10 MG/ML DIRECTED INTRAVENOUSLY EVERY 4 WEEKS *Please review and pick correct strength-formula tion from [employer] options. If intended option is not shown, discontinue and re-order from Quick Search* Active Fluticasone Propionate 50 MCG/ACT as directed in each nostril once a day for 90 days Active amLODIPine Besylate 10 MG 1 tab(s) orally once a day for 30 day(s) Active Olmesartan Medoxomil 20 MG 1 tab(s) orally once a day for 30 day(s) Active Hyoscyamine Sulfate 0.125 MG 1 tab(s) orally 4 times a day Active Ipratropium [place] 0.06 % 2 spray(s) intranasally up to 4 times a day as needed for 30 days Not-Taking clonazePAM 0.5 MG 1 tab(s) orally 3 times a day for 30 day(s) Not-Taking BENZONATATE 100 mg 1 cap(s) orally 3 times a day for 10 days Not-Taking BUDESONIDE 1 mg/2 mL Not-Taking Ondansetron 4 MG 1 tab(s) orally 3 times a day, PRN for 10 day(s) Active Trelegy Ellipta 200 mcg-62.5 mcg-25 mcg/inh 1 puff(s) inhaled once a day for 30 day(s) Active Trelegy Ellipta 200 MCG-62.5 MCG-25 MCG/INH 1 PUFF(S) INHALED ONCE A DAY for 90 DAYS *Please review and pick correct strength-formula tion from [employer] options. If intended option is not shown, discontinue and re-order from Quick Search* Not-Taking Azelastine HCl 137 MCG/SPRAY 2 spray(s) intranasally 2 times a day for 90 days Not-Taking hydrOXYzine HCl 25 MG 1 tab(s) orally 4 times a day for 90 days Not-Taking hydrOXYzine HCl 25 MG 1 tab(s) orally TID, PRN for 15 day(s) Active Azelastine HCl 137 MCG/SPRAY 2 spray(s) intranasally 2 times a day for 90 days Active Flonase Allergy Relief 50 MCG/ACT 1 spray(s) intranasally bid for 90 days Active Diphenoxylate-Atropi ne 2.5-0.025 MG 2 tab(s) orally 4 times a day Not-Taking Oseltamivir Phosphate 75 MG 1 cap(s) orally 2 times a day for 5 day(s) 09/18/2022 Not-Taking Immunizations Vaccine Route Administration Date Status Comme nts Shingrix Unknown 03/06/2018 Administered Shingrix Unknown 07/10/2018 Administered NOC Influenza-Fluzone Unknown 10/01/2019 Administered NOC Fluzone Quadrivalent IM Intramuscular 09/02/2018 Admin istered NOC Fluzone Quadrivalent Unknown 11/28/2018 Refused NOC Flucelvax Quadrivalent Unknown 08/01/2018 Refused NOC Flucelevax Quadrivalent IM Intramuscular 07/29/2020 Administered Fluzone Quadrivalent Unknown 09/11/2017 Administered Flucelvax Unknown 09/02/2022 Administered Social History Tobacco Use: Social History Observation Description Date Details (start date - stop date) Never Smoker NA - NA Sex Assigned At : Social History Observation Description Sex Assigned At Female Tobacco Control (Standard) Question Answer Notes Tobacco use: Nonsmoker AUDIT-C (Standard) Question Answer Notes Did you have a drink contain ing alcohol in the past year? Yes How often did you have a dri nk containing alcohol in the past year? Monthly or less (1 point) How many drinks did you have on a typical day when you were drinking in the past year? 1 or 2 drinks (0 point) How often did you have six o r more drinks on one occasion in the past year? Never (0 point) Points 1 Interpretation Negative Problems Problem Type SNOMED Code ICD Code Onset Dates Problem Status W/U Status Risk Notes Problem Allergy to penicillin (17321143) Allergy status to penicillin (Z88.0) Active confirmed Problem Idiopathic urticaria (89137476) Idiopathic urticaria (L50.1) Active confirmed Problem Eruption of skin (322820746) Rash and other nonspecific skin eruption (R21) Active confirmed Problem Eosinophilia (929833134) Eosinophilia (D72.1) Active confirmed Problem Hypothyroidism (08236478) Hypothyroidism, unspecified (E03.9) Active confirmed Problem Morbid obesity (disorder) (626574121) Morbid (severe) obesity due to excess calories (E66.01) Active confirmed Problem Insomnia (110822721) Insomnia, unspecified (G47.00) Active confirmed Problem Allergic rhinitis caused by animal hair and dander (181774345775701) Allergic rhinitis due to animal (cat) (dog) hair and dander (J30.81) Active confirmed Problem Allergic rhinitis (64342952) Other allergic rhinitis (J30.89) Active confirmed Problem Disorder of vocal cord (30324116) Other diseases of vocal cords (J38.3) Active confirmed Problem Uncomplicated severe persistent asthma (858967473) Severe persistent asthma, uncomplicated (J45.50) Active confirmed Problem 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 Problem Seborrheic dermatitis (85849072) Other seborrheic dermatitis (L21.8) Active confirmed Problem Joint pain (04141563) Pain in unspecified joint (M25.50) Active confirmed Problem 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 Problem Amnesia (88630390) Other amnesia (R41.3) Active confirmed Problem Anosmia (21050314) Anosmia (R43.0) Active confi rmed Problem Malaise (956371243) Other malaise (R53.81) Active confirmed Problem Chronic fatigue syndrome (disorder) (45989161) Chronic fatigue, unspecified (R53.82) Active confirmed Problem Fatigue (71098825) Other fatigue (R53.83) Active confirmed Problem Abnormal weight gain (099994690) Abnormal weight gain (R63.5) Active confirmed Problem Reduced libido (5958541) Decreased libido (R68.82) Active confirmed Problem Allergic rhinitis caused by pollen (disorder) (84312230) Allergic rhinitis due to pollen (J30.1) Active confirmed Problem Allergic rhinitis (54475308) Other allergic rhinitis (J30.89) Active confirmed Problem Chronic allergic conjunctivitis (63050257) Other chronic allergic conjunctivitis (H10.45) Active confirmed Problem Eruption of skin (038632642) Rash and other nonspecific skin eruption (R21) Active confirmed Problem Eosinophilic esophagitis (966369392) Eosinophilic esophagitis (K20.0) Active confirmed Problem Vitamin D deficiency (57412170) Vitamin D deficiency, unspecified (E55.9) Active confirmed Problem Irritability and anger (941468723) Irritability and anger (R45.4) Active confirmed Vital Signs Respiratory Rate 17 /min 12/25/2024 Oximetry 97 % 01/22/2025 Blood pressure diastolic 91 mm Hg 01/22/2025 Height 67 in 01/22/2025 Blood pressure systolic 147 mm Hg 01/22/2025 Weight 230.4 lbs 01/22/2025 BMI 36.08 kg/m2 01/22/2025 Encounters Encounter Location Date Provider Diagnosis NII Zhang [address] [place] [address] 10/30/2024 Valentine Zhang [address] [place] [address] 01/22/2025 Valentine Cordova [facility] ([address]) [address] [place] [address] 02/14/2024 Valentine BALES [address] [place] [address] 04/11/2024 Valentine Reyes [facility] - [facility] [place] ([address]) [address] [place] [address] 08/28/2024 Valentine Reyes Vitamin D deficiency , unspecified E55.9 ; Morbid (severe) obesity due to excess calories E66.01 ; Abnormal weight gain R63.5 ; Chronic fatigue, unspecified R53.82 ; Insomnia, unspecified G47.00 ; Irritability and anger R45.4 ; Other fatigue R53.83 ; Other malaise R53.81 and Pain in unspecified joint M25.50 [facility] [address] [place] [phone] 09/11/2024 Valentine BALES [address] [place] [address] 10/02/2024 Valentine Reyes [address] [place] [address] 11/16/2024 Valentine Reyes [facility] [address] [place] [phone] 11/20/2024 Valentine Reyes [facility] [place] ([address]) [address] [place] [address] 11/24/2024 Valentine Reyes [facility] [place] ([address]) [address] [place] [address] 12/15/2024 Valentine Reyes Hypothyroidism, unspecified E03.[address] [place] [address] 12/25/2024 Valentine BALES [address] [place] [address] 01/22/2025 [facility] [address] [place] [address] 01/27/2025 Valentine Reyes [facility] [address] [address] 07/08/2024 Estefaníacorina Wardkofi 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 ; Allergy status to penicillin Z88.0 ; Severe persistent asthma, uncomplicated J45.50 ; 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 ; Rash and other nonspecific skin eruption R21 ; Idiopathic urticaria L50.1 ; Other diseases of vocal cords J38.3 ; Eosinophilia D72.1 ; Eosinophilic esophagitis K20.0 ; Allergic rhinitis due to pollen J30.1 ; Allergic rhinitis due to animal (cat) (dog) hair and dander J30.81 ; Other allergic rhinitis J30.89 ; Vitamin D deficiency, unspecified E55.9 ; Nausea R11.0 ; Anosmia R43.0 and Elevated blood-pressure reading, without diagnosis of hypertension R03.0 [facility] [address] [place] [phone] 09/01/2024 Alexis Saba Severe persistent asthma, uncomplicated J45.50 ; 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 ; 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 ; Rash and other nonspecific skin eruption R21 ; Idiopathic urticaria L50.1 ; Other diseases of vocal cords J38.3 ; Eosinophilia D72.1 ; Eosinophilic esophagitis K20.0 ; Allergic rhinitis due to pollen J30.1 ; Allergic rhinitis due to animal (cat) (dog) hair and dander J30.81 ; Other allergic rhinitis J30.89 ; Vitamin D deficiency, unspecified E55.9 ; Nausea R11.0 ; Anosmia R43.0 ; Allergy status to penicillin Z88.0 and Elevated blood-pressure reading, without diagnosis of hypertension R03.0 [facility] [address] [place] [phone] 11/27/2024 Liliane Navarro Severe persistent asthma, uncomplicated J45.50 ; 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 ; 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 ; Rash and other nonspecific skin eruption R21 ; Idiopathic urticaria L50.1 ; Other diseases of vocal cords J38.3 ; Eosinophilia D72.1 ; Eosinophilic esophagitis K20.0 ; Allergic rhinitis due to pollen J30.1 ; Allergic rhinitis due to animal (cat) (dog) hair and dander J30.81 ; Other allergic rhinitis J30.89 ; Vitamin D deficiency, unspecified E55.9 ; Nausea R11.0 ; Anosmia R43.0 ; Allergy status to penicillin Z88.0 and Elevated blood-pressure reading, without diagnosis of hypertension R03.0 [facility] [address] [place] [address] 12/25/2024 Valentine Reyes Severe persistent asthma, uncomplicated J45.50 ; 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 ; 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 ; Rash and other nonspecific skin eruption R21 ; Idiopathic urticaria L50.1 ; Other diseases of vocal cords J38.3 ; Eosinophilia D72.1 ; Eosinophilic esophagitis K20.0 ; Allergic rhinitis due to pollen J30.1 ; Allergic rhinitis due to animal (cat) (dog) hair and dander J30.81 ; Other allergic rhinitis J30.89 ; Vitamin D deficiency, unspecified E55.9 ; Nausea R11.0 ; Anosmia R43.0 ; Allergy status to penicillin Z88.0 and Elevated blood-pressure reading, without diagnosis of hypertension R03.0 [facility] [address] [place] [address] 01/22/2025 Liliane Ramon Severe persistent asthma, uncomplicated J45.50 ; 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 ; 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 ; Rash and other nonspecific skin eruption R21 ; Idiopathic urticaria L50.1 ; Other diseases of vocal cords J38.3 ; Eosinophilia D72.1 ; Eosinophilic esophagitis K20.0 ; Allergic rhinitis due to pollen J30.1 ; Allergic rhinitis due to animal (cat) (dog) hair and dander J30.81 ; Other allergic rhinitis J30.89 ; Vitamin D deficiency, unspecified E55.9 ; Nausea R11.0 ; Anosmia R43.0 ; Allergy status to penicillin Z88.0 and Elevated blood-pressure reading, without diagnosis of hypertension R03.0 [facility] [address] [place] [address] 07/31/2024 Liliane Navarro Severe persistent asthma, uncomplicated J45.50 ; 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 ; 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 ; Rash and other nonspecific skin eruption R21 ; Idiopathic urticaria L50.1 ; Other diseases of vocal cords J38.3 ; Eosinophilia D72.1 ; Eosinophilic esophagitis K20.0 ; Allergic rhinitis due to pollen J30.1 ; Allergic rhinitis due to animal (cat) (dog) hair and dander J30.81 ; Other allergic rhinitis J30.89 ; Vitamin D deficiency, unspecified E55.9 ; Nausea R11.0 ; Anosmia R43.0 ; Allergy status to penicillin Z88.0 and Elevated blood-pressure reading, without diagnosis of hypertension R03.0 [facility] [address] [place] [phone] 10/02/2024 Valentine Young Severe persistent asthma, uncomplicated J45.50 ; 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 ; 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 ; Rash and other nonspecific skin eruption R21 ; Idiopathic urticaria L50.1 ; Other diseases of vocal cords J38.3 ; Eosinophilia D72.1 ; Eosinophilic esophagitis K20.0 ; Allergic rhinitis due to pollen J30.1 ; Allergic rhinitis due to animal (cat) (dog) hair and dander J30.81 ; Other allergic rhinitis J30.89 ; Vitamin D deficiency, unspecified E55.9 ; Nausea R11.0 ; Anosmia R43.0 ; Allergy status to penicillin Z88.0 and Elevated blood-pressure reading, without diagnosis of hypertension R03.0 [facility] [address] [place] [phone] 10/30/2024 Valentine Young Severe persistent asthma, uncomplicated J45.50 ; 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 ; 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 ; Rash and other nonspecific skin eruption R21 ; Idiopathic urticaria L50.1 ; Other diseases of vocal cords J38.3 ; Eosinophilia D72.1 ; Eosinophilic esophagitis K20.0 ; Allergic rhinitis due to pollen J30.1 ; Allergic rhinitis due to animal (cat) (dog) hair and dander J30.81 ; Other allergic rhinitis J30.89 ; Vitamin D deficiency, unspecified E55.9 ; Nausea R11.0 ; Anosmia R43.0 ; Allergy status to penicillin Z88.0 and Elevated blood-pressure reading, without diagnosis of hypertension R03.0 [facility] [address] [place] [phone] 02/14/2024 Valentine Young Severe persistent asthma, uncomplicated J45.50 ; 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 ; 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 ; Rash and other nonspecific skin eruption R21 ; Idiopathic urticaria L50.1 ; Other diseases of vocal cords J38.3 ; Eosinophilia D72.1 ; Eosinophilic esophagitis K20.0 ; Allergic rhinitis due to pollen J30.1 ; Allergic rhinitis due to animal (cat) (dog) hair and dander J30.81 ; Other allergic rhinitis J30.89 ; Allergy status to penicillin Z88.0 ; Vitamin D deficiency, unspecified E55.9 and Nausea R11.0 [facility] [address] [place] [phone] 03/13/2024 Valentine Young Severe persistent asthma, uncomplicated J45.50 ; 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 ; 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 ; Rash and other nonspecific skin eruption R21 ; Idiopathic urticaria L50.1 ; Other diseases of vocal cords J38.3 ; Eosinophilia D72.1 ; Eosinophilic esophagitis K20.0 ; Allergic rhinitis due to pollen J30.1 ; Allergic rhinitis due to animal (cat) (dog) hair and dander J30.81 ; Other allergic rhinitis J30.89 ; Allergy status to penicillin Z88.0 ; Vitamin D deficiency, unspecified E55.9 and Nausea R11.0 [facility] [address] [place] [phone] 04/10/2024 Liliane Navarro Severe persistent asthma, uncomplicated J45.50 ; 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 ; 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 ; Rash and other nonspecific skin eruption R21 ; Idiopathic urticaria L50.1 ; Other diseases of vocal cords J38.3 ; Eosinophilia D72.1 ; Eosinophilic esophagitis K20.0 ; Allergic rhinitis due to pollen J30.1 ; Allergic rhinitis due to animal (cat) (dog) hair and dander J30.81 ; Other allergic rhinitis J30.89 ; Allergy status to penicillin Z88.0 ; Vitamin D deficiency, unspecified E55.9 ; Nausea R11.0 and Anosmia R43.0 [facility] [address] [place], [place] [phone] 05/08/2024 Valentine Reyes Severe persistent asthma, uncomplicated J45.50 ; 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 ; 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 ; Rash and other nonspecific skin eruption R21 ; Idiopathic urticaria L50.1 ; Other diseases of vocal cords J38.3 ; Eosinophilia D72.1 ; Eosinophilic esophagitis K20.0 ; Allergic rhinitis due to pollen J30.1 ; Allergic rhinitis due to animal (cat) (dog) hair and dander J30.81 ; Other allergic rhinitis J30.89 ; Allergy status to penicillin Z88.0 ; Vitamin D deficiency, unspecified E55.9 ; Nausea R11.0 and Anosmia R43.0 [facility] [address] [place] [phone] 06/09/2024 Estefanía Prasad Severe persistent asthma, uncomplicated J45.50 ; 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 ; 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 ; Rash and other nonspecific skin eruption R21 ; Idiopathic urticaria L50.1 ; Other diseases of vocal cords J38.3 ; Eosinophilia D72.1 ; Eosinophilic esophagitis K20.0 ; Allergic rhinitis due to pollen J30.1 ; Allergic rhinitis due to animal (cat) (dog) hair and dander J30.81 ; Other allergic rhinitis J30.89 ; Allergy status to penicillin Z88.0 ; Vitamin D deficiency, unspecified E55.9 ; Nausea R11.0 ; Anosmia R43.0 and Elevated blood-pressure reading, without diagnosis of hypertension R03.0 [facility] [address] [place] [phone] 07/03/2024 Liliane Navarro Severe persistent asthma, uncomplicated J45.50 ; 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 ; 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 ; Rash and other nonspecific skin eruption R21 ; Idiopathic urticaria L50.1 ; Other diseases of vocal cords J38.3 ; Eosinophilia D72.1 ; Eosinophilic esophagitis K20.0 ; Allergic rhinitis due to pollen J30.1 ; Allergic rhinitis due to animal (cat) (dog) hair and dander J30.81 ; Other allergic rhinitis J30.89 ; Allergy status to penicillin Z88.0 ; Vitamin D deficiency, unspecified E55.9 ; Nausea R11.0 ; Anosmia R43.0 and Elevated blood-pressure reading, without diagnosis of hypertension R03.0 [facility] ([address]) [address] [place] [phone] 10/30/2024 Alexis Saba Hypothyroidism, unspecified E03.9 [facility] ([address]) [address] [place] [phone] 08/28/2024 Alexis Saba Abnormal weight gain R63.5 ; Chronic fatigue, unspecified R53.82 ; Decreased libido R68.82 ; Insomnia, unspecified G47.00 ; Irritability and anger R45.4 ; Morbid (severe) obesity due to excess calories E66.01 ; Other amnesia R41.3 ; Other fatigue R53.83 ; Other malaise R53.81 ; Pain in unspecified joint M25.50 and Vitamin D deficiency, unspecified E55.9 [facility] ([address]) [address] [place] [phone] 10/02/2024 Alexis Saba [facility] ([address]) [address] [place] [address] 10/30/2024 Alexis Saba [facility] ([address]) [address] [place] [phone] 11/27/2024 Alexis Saba [facility] ([address]) [address] [place] [address] 12/25/2024 Alexis [facility] ([address]) [address] [place] [address] 01/22/2025 Alexis BALES [facility] [address] [place] [address] 04/05/2024 Provider KENYETTA-Sil Severe persistent asthma, uncomplicated J45.50 ; Idiopathic urticaria L50.1 ; Eosinophilic esophagitis K20.0 ; Allergic rhinitis due to pollen J30.1 ; Allergic rhinitis due to animal (cat) (dog) hair and dander J30.81 and Nausea R11.0 Assessments Encounter Date Diagnosis (ICD Code) Assessment Notes Treatment Notes Treatment Clinical Notes Section Notes 10/30/2024 Hypothyroidism, unspecified (ICD-10 - E03.9) 11/27/2024 Severe persistent asthma, uncomplicated (ICD-10 - J45.50) Nataliia returns today to start treatment with Fasenra. - Dosing tolerated without issues and patient was monitored after treatment w/o any adverse reaction. She has had poor venous access in the past - see above for recs so we elected to switch from Cinqair to Fasenra as it is now approved for EGPA. - Rinse out mouth after use of controller. - Continue to use JARET per AAP. - Prior CT showed platelike atelectasis otherwise clear, now following with Dr. Ochoa. 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 In the past has been on oral prednisone to treat symptoms. She was switched from Nucala to Fasenra off-label (as case was discussed with Dr. Wilkinson at [facility]). Initially did well but having GI and respiratory symptoms roughly 4-5 weeks after dosing. She did not feel the Q8 week dosing provided enough relief, compared to Q4 week dosing of Nucala. Due to her receiving free drug, she cannot get Fasenra Q4 weeks. Prior to EGPA flare in January she was doing well on Nucala 600 mg. But with her flare in early 2020 CBC was checked after dosing showing AEC of 120. Thus the change in biologics to Fasenra. Initially did well but with Q8 week dosing she flared and her AEC again was elevated. - Previously seen by Rheumatology, Dr. Barney recommended either a change to Cinqair + Azathioprine vs. Rutiximab. Chose to start Cinqair. Doing well w/o recent asthma or EGPA symptoms. Her venous access has been insufficent and unreliabe lately as she has been on treatment for so long. She also is having more GI flares, but unclear if this is related to her new weight loss med. Discussed that Fasenra is now approved for EGPA. She previously failed this drug at the traditional asthma dosing when spacing out. With new approved frequency of Fasenra dosing, we elected to start Fasenra today. Dosing tolerate without adverse event. - Consider other options with Rheum if she fails Cinqair. With Azathioprine, she wanted to hold off due to potential side effects even though Rheumatology feels this is low risk. Previously checked labs for TPMT genetics, especially given her work-up by Endocrinology to evaluate her elevated liver enzymes. Her LFTs have now normalized and her TPMT lab was negative - Recommend returning to GI for biopsy now off steroids if symptoms worsen. - Prior CT showed platelike atelectasis. Recommend evaluation by Dr. Ochoa; appreciate his input on her CT findings. - Return in 4 weeks for dosing 01/22/2025 Severe persistent asthma, uncomplicated (ICD-10 - J45.50) Nataliia returns today to start treatment with Fasenra. - Dosing tolerated without issues and patient was monitored after treatment w/o any adverse reaction. She has had poor venous access in the past - see above for recs so we elected to switch from Cinqair to Fasenra as it is now approved for EGPA. - Rinse out mouth after use of controller. - Continue to use JARET per AAP. - Prior CT showed platelike atelectasis otherwise clear, now following with Dr. Ochoa. 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 In the past has been on oral prednisone to treat symptoms. She was switched from Nucala to Fasenra off-label (as case was discussed with Dr. Wilkinson at [facility]). Initially did well but having GI and respiratory symptoms roughly 4-5 weeks after dosing. She did not feel the Q8 week dosing provided enough relief, compared to Q4 week dosing of Nucala. Due to her receiving free drug, she cannot get Fasenra Q4 weeks. Prior to EGPA flare in January she was doing well on Nucala 600 mg. But with her flare in early 2020 CBC was checked after dosing showing AEC of 120. Thus the change in biologics to Fasenra. Initially did well but with Q8 week dosing she flared and her AEC again was elevated. - Previously seen by Rheumatology, Dr. Barney recommended either a change to Cinqair + Azathioprine vs. Rutiximab. Chose to start Cinqair. Doing well w/o recent asthma or EGPA symptoms. Her venous access has been insufficent and unreliable as she has been on treatment for so long. She also is having more GI flares, but unclear if this is related to her new weight loss med. Discussed that Fasenra is now approved for EGPA. She previously failed this drug at the traditional asthma dosing when spacing out. With new approved frequency of Fasenra dosing, we elected to continue Fasenra today. Dosing tolerate without adverse event. - Consider other options with Rheum if she fails Fasenra. With Azathioprine, she wanted to hold off due to potential side effects even though Rheumatology feels this is low risk. Previously checked labs for TPMT genetics, especially given her work-up by Endocrinology to evaluate her elevated liver enzymes. Her LFTs have now normalized and her TPMT lab was negative - Last month have more GI symptoms but on regimen of new meds. Reports stopping ashwaganda and is no longer on Wegovy with improevment in GI symptoms this month. Previously discussed Pepto or Gaviscon trial - Recommend returning to GI for biopsy now off steroids if symptoms worsen. She is in search of new GI specialist. - Prior CT showed platelike atelectasis. Now followed by Dr. Ochoa. - Return in 4 weeks for dosing - patient believes she will be out of town for work in 4 weeks. 08/28/2024 Chronic fatigue, unspecified (ICD-10 - R53.82) 08/28/2024 Abnormal weight gain (ICD-10 - R63.5) 08/28/2024 Morbid (severe) obesity due to excess calories (ICD-10 - E66.01) 08/28/2024 Vitamin D deficiency, unspecified (ICD-10 - E55.9) 05/08/2024 Severe persistent asthma, uncomplicated (ICD-10 - J45.50) Nataliia returns today to continue treatment with Cinqair -IV treatment tolerated without issues and patient was monitored after treatment w/o any adverse reaction -rinse out mouth after use of controller -continue to use JARET per AAP -recent CT showed platelike atelectasis otherwise clear -spirometry prior visit was normal -return in 4 weeks for next treatment 05/08/2024 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 In the past year has been on oral prednisone to treat symptoms. She was switched from Nucala to Fasenra off-label (as case was discussed with Dr. Wilkinson at [facility]). Initially did well but having GI and respiratory symptoms roughly 4-5 weeks after dosing. She does not feel the Q8 week dosing provides enough relief, compared to Q4 week dosing of Nucala. Due to her receiving free drug, she cannot get Fasenra Q4 weeks. Prior to EGPA flare in January she was doing well on Nucala 600 mg. But with her flare in early 2020 CBC was checked after dosing showing AEC of 120. Thus the change in biologics to Fasenra. Initially did well but with Q8 week dosing she flared and her AEC again was elevated. -Previously seen by Rheumatology, Dr. Barney recommended either a change to Cinqair + Azathiaprine vs. Rutiximab. Chose to start Cinqair. Doing well w/o recent asthma or EGPA symptoms -Consider other options with Rheum if she fails Cinqair. With Azathioprine she wanted to wait until discussion w/infertility specialist even though Rheumatology feels this is low risk. Previously checked labs for TPMT genetics, especially given her work-up by Endocrinology to evaluate her elevated liver enzymes. Her LFTs have now normalized and her TPMT lab was negative -She received 315 mg of Cinqair today with 50 mL of saline, total infusion volume of 81.5 -Recommend returning to GI for biopsy now off steroids if symptoms worsen -Prior CT showed platelike atelectasis. Recommend evaluation by Dr. Ochoa; appreciate his input on her CT findings -Return in 4 weeks for dosing 06/09/2024 Severe persistent asthma, uncomplicated (ICD-10 - J45.50) Nataliia returns today to continue treatment with Cinqair - IV treatment tolerated without issues and patient was monitored after treatment w/o any adverse reaction. - Rinse out mouth after use of controller. - Continue to use JARET per AAP. - Recent CT showed platelike atelectasis otherwise clear, now following with Dr. Ochoa. - Spirometry prior visit was normal. 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 In the past has been on oral prednisone to treat symptoms. She was switched from Nucala to Fasenra off-label (as case was discussed with Dr. Wilkinson at [facility]). Initially did well but having GI and respiratory symptoms roughly 4-5 weeks after dosing. She did not feel the Q8 week dosing provided enough relief, compared to Q4 week dosing of Nucala. Due to her receiving free drug, she cannot get Fasenra Q4 weeks. Prior to EGPA flare in January she was doing well on Nucala 600 mg. But with her flare in early 2020 CBC was checked after dosing showing AEC of 120. Thus the change in biologics to Fasenra. Initially did well but with Q8 week dosing she flaredand her AEC again was elevated. - Previously seen by Rheumatology, Dr. Barney recommended either a change to Cinqair + Azathioprine vs. Rutiximab. Chose to start Cinqair. Doing well w/o recent asthma or EGPA symptoms. - Consider other options with Rheum if she fails Cinqair. With Azathioprine, she wanted to wait until discussion w/infertility specialist even though Rheumatology feels this is low risk. Previously checked labs for TPMT genetics, especially given her work-up by Endocrinology to evaluate her elevated liver enzymes. Her LFTs have now normalized and her TPMT lab was negative - She received 324 mg of Cinqair today with 50 mL of saline, total infusion volume of 82.4 mL. - Recommend returning to GI for biopsy now off steroids if symptoms worsen. - Prior CT showed platelike atelectasis. Recommend evaluation by Dr. Ochoa; appreciate his input on her CT findings. - Return in 4 weeks for dosing 07/03/2024 Severe persistent asthma, uncomplicated (ICD-10 - J45.50) Nataliia returns today to continue treatment with Cinqair. - IV treatment tolerated without issues and patient was monitored after treatment w/o any adverse reaction. - Rinse out mouth after use of controller. - Continue to use JARET per AAP. - Recent CT showed platelike atelectasis otherwise clear, now following with Dr. Ochoa. - Spirometry prior visit was normal. 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 In the past has been on oral prednisone to treat symptoms. She was switched from Nucala to Fasenra off-label (as case was discussed with Dr. Wilkinson at [facility]). Initially did well but having GI and respiratory symptoms roughly 4-5 weeks after dosing. She did not feel the Q8 week dosing provided enough relief, compared to Q4 week dosing of Nucala. Due to her receiving free drug, she cannot get Fasenra Q4 weeks. Prior to EGPA flare in January she was doing well on Nucala 600 mg. But with her flare in early 2020 CBC was checked after dosing showing AEC of 120. Thus the change in biologics to Fasenra. Initially did well but with Q8 week dosing she flaredand her AEC again was elevated. - Previously seen by Rheumatology, Dr. Barney recommended either a change to Cinqair + Azathioprine vs. Rutiximab. Chose to start Cinqair. Doing well w/o recent asthma or EGPA symptoms. - Consider other options with Rheum if she fails Cinqair. With Azathioprine, she wanted to wait until discussion w/infertility specialist even though Rheumatology feels this is low risk. Previously checked labs for TPMT genetics, especially given her work-up by Endocrinology to evaluate her elevated liver enzymes. Her LFTs have now normalized and her TPMT lab was negative - She received 330 mg of Cinqair today with 50 mL of saline, total infusion volume of 83.0 mL. - Recommend returning to GI for biopsy now off steroids if symptoms worsen. - Prior CT showed platelike atelectasis. Recommend evaluation by Dr. Ochoa; appreciate his input on her CT findings. - Return in 4 weeks for dosing 07/08/2024 Allergy status to penicillin (ICD-10 - Z88.0) Nataliia reports receiving an IM injection of penicillin that caused her throat to close. Following this, she was told by her mom that she had a reaction to penicillin in childhood. - Nataliia presented today for testing to further assess for penicillin allergy. SPT performed to Pre-Pen and Ubaldo, showing a positive result to Pre-Pen. Due to this, further testing was not pursued. - Given history and testing, would recommend continued absolute avoidance of PCN. 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 In the past has been on oral prednisone to treat symptoms. She was switched from Nucala to Fasenra off-label (as case was discussed with Dr. Wilkinson at [facility]). Initially did well but having GI and respiratory symptoms roughly 4-5 weeks after dosing. She did not feel the Q8 week dosing provided enough relief, compared to Q4 week dosing of Nucala. Due to her receiving free drug, she cannot get Fasenra Q4 weeks. Prior to EGPA flare in January she was doing well on Nucala 600 mg. But with her flare in early 2020 CBC was checked after dosing showing AEC of 120. Thus the change in biologics to Fasenra. Initially did well but with Q8 week dosing she flaredand her AEC again was elevated. - Previously seen by Rheumatology, Dr. Barney recommended either a change to Cinqair + Azathioprine vs. Rutiximab. Chose to start Cinqair. Doing well w/o recent asthma or EGPA symptoms. - Consider other options with Rheum if she fails Cinqair. With Azathioprine, she wanted to wait until discussion w/infertility specialist even though Rheumatology feels this is low risk. Previously checked labs for TPMT genetics, especially given her work-up by Endocrinology to evaluate her elevated liver enzymes. Her LFTs have now normalized and her TPMT lab was negative - She was not due for Cinqair today. - Recommend returning to GI for biopsy now off steroids if symptoms worsen. - Prior CT showed platelike atelectasis. Recommend evaluation by Dr. Ochoa; appreciate his input on her CT findings. - Return as scheduled for Cinqair dosing 07/31/2024 Severe persistent asthma, uncomplicated (ICD-10 - J45.50) Nataliia returns today to continue treatment with Cinqair. - IV treatment tolerated without issues and patient was monitored after treatment w/o any adverse reaction. - Rinse out mouth after use of controller. - Continue to use JARET per AAP. - Recent CT showed platelike atelectasis otherwise clear, now following with Dr. Ochoa. - Spirometry prior visit was normal. 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 In the past has been on oral prednisone to treat symptoms. She was switched from Nucala to Fasenra off-label (as case was discussed with Dr. Wilkinson at [facility]). Initially did well but having GI and respiratory symptoms roughly 4-5 weeks after dosing. She did not feel the Q8 week dosing provided enough relief, compared to Q4 week dosing of Nucala. Due to her receiving free drug, she cannot get Fasenra Q4 weeks. Prior to EGPA flare in January she was doing well on Nucala 600 mg. But with her flare in early 2020 CBC was checked after dosing showing AEC of 120. Thus the change in biologics to Fasenra. Initially did well but with Q8 week dosing she flaredand her AEC again was elevated. - Previously seen by Rheumatology, Dr. Barney recommended either a change to Cinqair + Azathioprine vs. Rutiximab. Chose to start Cinqair. Doing well w/o recent asthma or EGPA symptoms. - Consider other options with Rheum if she fails Cinqair. With Azathioprine, she wanted to wait until discussion w/infertility specialist even though Rheumatology feels this is low risk. Previously checked labs for TPMT genetics, especially given her work-up by Endocrinology to evaluate her elevated liver enzymes. Her LFTs have now normalized and her TPMT lab was negative - She received 318 mg of Cinqair today with 50 mL of saline, total infusion volume of 81.8 mL. - Recommend returning to GI for biopsy now off steroids if symptoms worsen. - Prior CT showed platelike atelectasis. Recommend evaluation by Dr. Ochoa; appreciate his input on her CT findings. - Discussed change to Fasenra due to new EGPA indication. Will discuss further at follow-up. 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 In the past year has been on oral prednisone to treat symptoms. She was switched from Nucala to Fasenra off-label (as case was discussed with Dr. Wilkinson at [facility]). Initially did well but having GI and respiratory symptoms roughly 4-5 weeks after dosing. She does not feel the Q8 week dosing provides enough relief, compared to Q4 week dosing of Nucala. Due to her receiving free drug, she cannot get Fasenra Q4 weeks. Prior to EGPA flare in January she was doing well on Nucala 600 mg. But with her flare in early 2020 CBC was checked after dosing showing AEC of 120. Thus the change in biologics to Fasenra. Initially did well but with Q8 week dosing she flared and her AEC again was elevated. -Previously seen by Rheumatology, Dr. Barney recommended either a change to Cinqair + Azathiaprine vs. Rutiximab. Chose to start Cinqair. Doing well w/o recent asthma or EGPA symptoms -Consider other options with Rheum if she fails Cinqair. With Azathioprine she wanted to wait until discussion w/infertility specialist even though Rheumatology feels this is low risk. Previously checked labs for TPMT genetics, especially given her work-up by Endocrinology to evaluate her elevated liver enzymes. Her LFTs have now normalized and her TPMT lab was negative -She received 312 mg of Cinqair today with 50 mL of saline, total infusion volume of 81.2 -Recommend returning to GI for biopsy now off steroids if symptoms worsen -Prior CT showed platelike atelectasis. Recommend evaluation by Dr. 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 In the past year has been on oral prednisone to treat symptoms. She was switched from Nucala to Fasenra off-label (as case was discussed with Dr. Wilkinson at [facility]). Initially did well but having GI and respiratory symptoms roughly 4-5 weeks after dosing. She does not feel the Q8 week dosing provides enough relief, compared to Q4 week dosing of Nucala. Due to her receiving free drug, she cannot get Fasenra Q4 weeks. Prior to EGPA flare in January she was doing well on Nucala 600 mg. But with her flare in early 2020 CBC was checked after dosing showing AEC of 120. Thus the change in biologics to Fasenra. Initially did well but with Q8 week dosing she flared and her AEC again was elevated. -Previously seen by Rheumatology, Dr. Barney recommended either a change to Cinqair + Azathiaprine vs. Rutiximab. Chose to start Cinqair. Doing well w/o recent asthma or EGPA symptoms -Consider other options with Rheum if she fails Cinqair. With Azathioprine she wanted to wait until discussion w/infertility specialist even though Rheumatology feels this is low risk. Previously checked labs for TPMT genetics, especially given her work-up by Endocrinology to evaluate her elevated liver enzymes. Her LFTs have now normalized and her TPMT lab was negative -She received 318 mg of Cinqair today with 50 mL of saline, total infusion volume of 81.8 -Recommend returning to GI for biopsy now off steroids if symptoms worsen -Prior CT showed platelike atelectasis. Recommend evaluation by Dr. 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 In the past year has been on oral prednisone to treat symptoms. She was switched from Nucala to Fasenra off-label (as case was discussed with Dr. Wilkinson at [facility]). Initially did well but having GI and respiratory symptoms roughly 4-5 weeks after dosing. She does not feel the Q8 week dosing provides enough relief, compared to Q4 week dosing of Nucala. Due to her receiving free drug, she cannot get Fasenra Q4 weeks. Prior to EGPA flare in January she was doing well on Nucala 600 mg. But with her flare in early 2020 CBC was checked after dosing showing AEC of 120. Thus the change in biologics to Fasenra. Initially did well but with Q8 week dosing she flared and her AEC again was elevated. -Previously seen by Rheumatology, Dr. Barney recommended either a change to Cinqair + Azathiaprine vs. Rutiximab. Chose to start Cinqair. Doing well w/o recent asthma or EGPA symptoms -Consider other options with Rheum if she fails Cinqair. With Azathioprine she wanted to wait until discussion w/infertility specialist even though Rheumatology feels this is low risk. Previously checked labs for TPMT genetics, especially given her work-up by Endocrinology to evaluate her elevated liver enzymes. Her LFTs have now normalized and her TPMT lab was negative -She received 315 mg of Cinqair today with 50 mL of saline, total infusion volume of 81.5 -Recommend returning to GI for biopsy now off steroids if symptoms worsen -Prior CT showed platelike atelectasis. Recommend evaluation by Dr. Ochoa; appreciate his input on her CT findings -Return in 4 weeks for dosing 12/25/2024 Severe persistent asthma, uncomplicated (ICD-10 - J45.50) Nataliia returns today to start treatment with Fasenra. - Dosing tolerated without issues and patient was monitored after treatment w/o any adverse reaction. She has had poor venous access in the past - see above for recs so we elected to switch from Cinqair to Fasenra as it is now approved for EGPA. - Rinse out mouth after use of controller. - Continue to use JARET per [facility]AP. - Prior CT showed platelike atelectasis otherwise clear, now following with Dr. Ochoa. 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 In the past has been on oral prednisone to treat symptoms. She was switched from Nucala to Fasenra off-label (as case was discussed with Dr. Wilkinson at [facility]). Initially did well but having GI and respiratory symptoms roughly 4-5 weeks after dosing. She did not feel the Q8 week dosing provided enough relief, compared to Q4 week dosing of Nucala. Due to her receiving free drug, she cannot get Fasenra Q4 weeks. Prior to EGPA flare in January she was doing well on Nucala 600 mg. But with her flare in early 2020 CBC was checked after dosing showing AEC of 120. Thus the change in biologics to Fasenra. Initially did well but with Q8 week dosing she flared and her AEC again was elevated. - Previously seen by Rheumatology, Dr. Barney recommended either a change to Cinqair + Azathioprine vs. Rutiximab. Chose to start Cinqair. Doing well w/o recent asthma or EGPA symptoms. Her venous access has been insufficent and unreliabe lately as she has been on treatment for so long. She also is having more GI flares, but unclear if this is related to her new weight loss med. Discussed that Fasenra is now approved for EGPA. She previously failed this drug at the traditional asthma dosing when spacing out. With new approved frequency of Fasenra dosing, we elected to continueFasenra today. Dosing tolerate without adverse event. - Consider other options with Rheum if she fails Fasenra. With Azathioprine, she wanted to hold off due to potential side effects even though Rheumatology feels this is low risk. Previously checked labs for TPMT genetics, especially given her work-up by Endocrinology to evaluate her elevated liver enzymes. Her LFTs have now normalized and her TPMT lab was negative -This month have more GI symptoms but on regimen of new meds. I will discuss her case with Dr. Saba as he is recommending several of these meds. Discussed Pepto or Gaviscon trial - Recommend returning to GI for biopsy now off steroids if symptoms worsen. - Prior CT showed platelike atelectasis. Now followed by Dr. Ochoa. - Return in 4 weeks for dosing 12/15/2024 Hypothyroidism, unspecified (ICD-10 - E03.9) 10/30/2024 Severe persistent asthma, uncomplicated (ICD-10 - J45.50) Nataliia returns today to continue treatment with Cinqair. - IV treatment tolerated without issues and patient was monitored after treatment w/o any adverse reaction. She has had poor venous access in the past - see above for recs - Rinse out mouth after use of controller. - Continue to use JARET per [facility]AP. - Prior CT showed platelike atelectasis otherwise clear, now following with Dr. Ochoa. 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 In the past has been on oral prednisone to treat symptoms. She was switched from Nucala to Fasenra off-label (as case was discussed with Dr. Wilkinson at [facility]). Initially did well but having GI and respiratory symptoms roughly 4-5 weeks after dosing. She did not feel the Q8 week dosing provided enough relief, compared to Q4 week dosing of Nucala. Due to her receiving free drug, she cannot get Fasenra Q4 weeks. Prior to EGPA flare in January she was doing well on Nucala 600 mg. But with her flare in early 2020 CBC was checked after dosing showing AEC of 120. Thus the change in biologics to Fasenra. Initially did well but with Q8 week dosing she flaredand her AEC again was elevated. - Previously seen by Rheumatology, Dr. Barney recommended either a change to Cinqair + Azathioprine vs. Rutiximab. Chose to start Cinqair. Doing well w/o recent asthma or EGPA symptoms. Her venous access has been insufficent and unreliabe lately as she has been on treatment for so long. She also is having more GI flares, but unclear if this is related to her new weight loss med. Discussed that Fasenra is now approved for EGPA. She previously failed this drug at the traditional asthma dosing when spacing out. I feel she would do well with the new approved frequency. - Consider other options with Rheum if she fails Cinqair. With Azathioprine, she wanted to hold off due to potential side effects even though Rheumatology feels this is low risk. Previously checked labs for TPMT genetics, especially given her work-up by Endocrinology to evaluate her elevated liver enzymes. Her LFTs have now normalized and her TPMT lab was negative - She received 303 mg of Cinqair today with 50 mL of saline, total infusion volume of 80.3 mL. - Recommend returning to GI for biopsy now off steroids if symptoms worsen. - Prior CT showed platelike atelectasis. Recommend evaluation by Dr. Ochoa; appreciate his input on her CT findings. - Discussed change to Fasenra due to new EGPA indication. Will discuss further at follow-up. - Return in 4 weeks for dosing Additional time was spent completing BI and auth 10/02/2024 Severe persistent asthma, uncomplicated (ICD-10 - J45.50) Nataliia returns today to continue treatment with Cinqair. - IV treatment tolerated without issues and patient was monitored after treatment w/o any adverse reaction. - Rinse out mouth after use of controller. - Continue to use JARET per [facility]AP. - Recent CT showed platelike atelectasis otherwise clear, now following with Dr. Ochoa. - Spirometry prior visit was normal. 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 In the past has been on oral prednisone to treat symptoms. She was switched from Nucala to Fasenra off-label (as case was discussed with Dr. Wilkinson at [facility]). Initially did well but having GI and respiratory symptoms roughly 4-5 weeks after dosing. She did not feel the Q8 week dosing provided enough relief, compared to Q4 week dosing of Nucala. Due to her receiving free drug, she cannot get Fasenra Q4 weeks. Prior to EGPA flare in January she was doing well on Nucala 600 mg. But with her flare in early 2020 CBC was checked after dosing showing AEC of 120. Thus the change in biologics to Fasenra. Initially did well but with Q8 week dosing she flaredand her AEC again was elevated. - Previously seen by Rheumatology, Dr. Barney recommended either a change to Cinqair + Azathioprine vs. Rutiximab. Chose to start Cinqair. Doing well w/o recent asthma or EGPA symptoms. - Consider other options with Rheum if she fails Cinqair. With Azathioprine, she wanted to wait until discussion w/infertility specialist even though Rheumatology feels this is low risk. Previously checked labs for TPMT genetics, especially given her work-up by Endocrinology to evaluate her elevated liver enzymes. Her LFTs have now normalized and her TPMT lab was negative - She received 312 mg of Cinqair today with 50 mL of saline, total infusion volume of 80.9 mL. - Recommend returning to GI for biopsy now off steroids if symptoms worsen. - Prior CT showed platelike atelectasis. Recommend evaluation by Dr. Ochoa; appreciate his input on her CT findings. - Discussed change to Fasenra due to new EGPA indication. Will discuss further at follow-up. 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 Previously had been stable for years until January 2021. In 06/2021, noted increase abdominal symptoms: diarrhea, stomach churning, stabbing pain - Prior symptoms very similar to flare in January. Received prednisone burst and then taper, last dose was 07/29. Still with abdominal symptoms, but reports better than before. No changes were made at last viit in [place] from GI. Previously felt Fasenra at Q8 week dosing did not control symptoms. [place] better on Q4 week dosing. Unable to get approved off-label. AEC 100 with most recent recheck. Changed back to Nucala AEC=0. - Now off swallowed steroid and elimination diet per [facility] - needs to be c/w wheat and dairy avoidance per Dr. Vargas. 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 Previously had been stable for years until January 2021. In 06/2021, noted increase abdominal symptoms: diarrhea, stomach churning, stabbing pain - Prior symptoms very similar to flare in January. Received prednisone burst and then taper, last dose was 10/8. Still with abdominal symptoms, but reports better than before. No changes were made at last viit in [place] from GI. Previously felt Fasenra at Q8 week dosing did not control symptoms. [place] better on Q4 week dosing. Unable to get approved off-label. AEC 100 with most recent recheck. Changed back to Nucala AEC=0. - Now off swallowed steroid and elimination diet per [facility] - also not c/w wheat and dairy avoidance per Dr. Vargas. - Needs f/u with GI if symptoms worsen Prior diagnosis in early , complicated by eosinophilic ascites. Previously had been stable for years until January 2021. In 06/2021, noted increase abdominal symptoms: diarrhea, stomach churning, stabbing pain - Prior symptoms very similar to flare in January. Received prednisone burst and then taper, last dose was 10/8. Still with abdominal symptoms, but reports better than before. No changes were made at last viit in [place] from GI. Previously felt Fasenra at Q8 week dosing did not control symptoms. [place] better on Q4 week dosing. Unable to get approved off-label. 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 Previously had been stable for years until January 2021. In 06/2021, noted increase abdominal symptoms: diarrhea, stomach churning, stabbing pain - Prior symptoms very similar to flare in January. Received prednisone burst and then taper, last dose was 10/8. Still with abdominal symptoms, but reports better than before. No changes were made at last viit in [place] from GI. Previously felt Fasenra at Q8 week dosing did not control symptoms. [place] better on Q4 week dosing. Unable to get approved off-label. AEC 100 with most recent recheck. Changed back to Nucala AEC=0. - Now off swallowed steroid and elimination diet per [facility] - also not c/w wheat and dairy avoidance per Dr. Vargas. - Needs f/u with GI if symptoms worsen Prior diagnosis in early , complicated by eosinophilic ascites. Previously had been stable for years until January 2021. In 06/2021, noted increase abdominal symptoms: diarrhea, stomach churning, stabbing pain - Prior symptoms very similar to flare in January. Received prednisone burst and then taper, last dose was 10/8. Still with abdominal symptoms, but reports better than before. No changes were made at last viit in [place] from GI. Previously felt Fasenra at Q8 week dosing did not control symptoms. [place] better on Q4 week dosing. Unable to get approved off-label. AEC 100 with most recent recheck.Now there is approved Fasenra dosing for EGPA, started today. 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 Previously had been stable for years until January 2021. In 06/2021, noted increase abdominal symptoms: diarrhea, stomach churning, stabbing pain - very similar to flare in January. Received prednisone burst and then taper, last dose was 10/8. Still with abdominal symptoms, but reports better than before, now with nausea x several weeks. Requesting Zofran today. See below. No changes were made at last viit in [place] from GI. Continues on Fasenra, but is adament Q8 week dosing does not control symptoms. [place] better on Q4 week dosing. Unable to get approved off-label. AEC 100 with most recent recheck. Changed back to Nucala AEC=0. -With steroids recently she did better but now lower GI symptoms are back. Food sticking and dysphagia has also resolved since starting steroids. Now tapered off. Continue swallowed steroid and elimination diet per [facility] - needs to be c/w wheat and dairy avoidance per Dr. 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 Previously had been stable for years until January 2021. In 06/2021, noted increase abdominal symptoms: diarrhea, stomach churning, stabbing pain - very similar to flare in January. Received prednisone burst and then taper, last dose was 10/8. Still with abdominal symptoms, but reports better than before, now with nausea x several weeks. Requesting Zofran today. See below. No changes were made at last viit in [place] from GI. Continues on Fasenra, but is adament Q8 week dosing does not control symptoms. [place] better on Q4 week dosing. Unable to get approved off-label. AEC 100 with most recent recheck. Changed back to Nucala AEC=0. -With steroids recently she did better but now lower GI symptoms are back. Food sticking and dysphagia has also resolved since starting steroids. Now tapered off. Continue swallowed steroid and elimination diet per [facility] - needs to be c/w wheat and dairy avoidance per Dr. 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 Previously had been stable for years until January 2021. In 06/2021, noted increase abdominal symptoms: diarrhea, stomach churning, stabbing pain - very similar to flare in January. Received prednisone burst and then taper, last dose was 10/8. Still with abdominal symptoms, but reports better than before, now with nausea x several weeks. Requesting Zofran today. See below. No changes were made at last viit in [place] from GI. Continues on Fasenra, but is adament Q8 week dosing does not control symptoms. [place] better on Q4 week dosing. Unable to get approved off-label. AEC 100 with most recent recheck. Changed back to Nucala AEC=0. -With steroids recently she did better but now lower GI symptoms are back. Food sticking and dysphagia has also resolved since starting steroids. Now tapered off. Continue swallowed steroid and elimination diet per [facility] - needs to be c/w wheat and dairy avoidance per Dr. 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 Previously had been stable for years until January 2021. In 06/2021, noted increase abdominal symptoms: diarrhea, stomach churning, stabbing pain - Prior symptoms very similar to flare in January. Received prednisone burst and then taper, last dose was 10/8. Still with abdominal symptoms, but reports better than before. No changes were made at last viit in [place] from GI. Previously felt Fasenra at Q8 week dosing did not control symptoms. [place] better on Q4 week dosing. Unable to get approved off-label. AEC 100 with most recent recheck. Changed back to Nucala AEC=0. - Now off swallowed steroid and elimination diet per [facility] - needs to be c/w wheat and dairy avoidance per Dr. Vargas. - Needs f/u with GI if symptoms worsen 07/08/2024 Severe persistent asthma, uncomplicated (ICD-10 - J45.50) Nataliia continues treatment with Cinqair, however not due for dosing today. - Rinse out mouth after use of controller. - Continue to use JARET per [facility]. - Recent CT showed platelike atelectasis otherwise clear, now following with Dr. Ochoa. - Spirometry prior visit was normal. 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 Previously had been stable for years until January 2021. In 06/2021, noted increase abdominal symptoms: diarrhea, stomach churning, stabbing pain - Prior symptoms very similar to flare in January. Received prednisone burst and then taper, last dose was 10/8. Still with abdominal symptoms, but reports better than before. No changes were made at last viit in [place] from GI. Previously felt Fasenra at Q8 week dosing did not control symptoms. [place] better on Q4 week dosing. Unable to get approved off-label. AEC 100 with most recent recheck. Changed back to Nucala AEC=0. - Now off swallowed steroid and elimination diet per [facility] - needs to be c/w wheat and dairy avoidance per Dr. Vargas. 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 Previously had been stable for years until January 2021. In 06/2021, noted increase abdominal symptoms: diarrhea, stomach churning, stabbing pain - Prior symptoms very similar to flare in January. Received prednisone burst and then taper, last dose was 10/8. Still with abdominal symptoms, but reports better than before. No changes were made at last viit in [place] from GI. Previously felt Fasenra at Q8 week dosing did not control symptoms. [place] better on Q4 week dosing. Unable to get approved off-label. AEC 100 with most recent recheck. Changed back to Nucala AEC=0. - Now off swallowed steroid and elimination diet per [facility] - needs to be c/w wheat and dairy avoidance per Dr. Vargas. 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 Previously had been stable for years until January 2021. In 06/2021, noted increase abdominal symptoms: diarrhea, stomach churning, stabbing pain - very similar to flare in January. Received prednisone burst and then taper, last dose was 10. Still with abdominal symptoms, but reports better than before. No changes were made at last viit in [place] from GI. Continues on Fasenra, but is adament Q8 week dosing does not control symptoms. [place] better on Q4 week dosing. Unable to get approved off-label. AEC 100 with most recent recheck. Changed back to Nucala AEC=0. -now off swallowed steroid and elimination diet per [facility] - needs to be c/w wheat and dairy avoidance per Dr. 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 Previously had been stable for years until January 2021. In 06/2021, noted increase abdominal symptoms: diarrhea, stomach churning, stabbing pain - Prior symptoms very similar to flare in January. Received prednisone burst and then taper, last dose was 10. Still with abdominal symptoms, but reports better than before. No changes were made at last viit in [place] from GI. Previously felt Fasenra at Q8 week dosing did not control symptoms. [place] better on Q4 week dosing. Unable to get approved off-label. AEC 100 with most recent recheck. Changed back to Nucala AEC=0. - Now off swallowed steroid and elimination diet per [facility] - also not c/w wheat and dairy avoidance per Dr. Vargas. - Needs f/u with GI if symptoms worsen Prior diagnosis in early , complicated by eosinophilic ascites. Previously had been stable for years until January 2021. In 06/2021, noted increase abdominal symptoms: diarrhea, stomach churning, stabbing pain - Prior symptoms very similar to flare in January. Received prednisone burst and then taper, last dose was 10/8. Still with abdominal symptoms, but reports better than before. No changes were made at last visit in [place] from GI. Previously felt Fasenra at Q8 week dosing did not control symptoms. [place] better on Q4 week dosing. Unable to get approved off-label. AEC 100 with most recent recheck. 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 Previously had been stable for years until January 2021. In 06/2021, noted increase abdominal symptoms: diarrhea, stomach churning, stabbing pain - Prior symptoms very similar to flare in January. Received prednisone burst and then taper, last dose was 10/8. Still with abdominal symptoms, but reports better than before. No changes were made at last viit in [place] from GI. Previously felt Fasenra at Q8 week dosing did not control symptoms. [place] better on Q4 week dosing. Unable to get approved off-label. AEC 100 with most recent recheck. Changed back to Nucala AEC=0. - Now off swallowed steroid and elimination diet per [facility] - also not c/w wheat and dairy avoidance per Dr. Vargas. - Needs f/u with GI if symptoms worsen Prior diagnosis in early , complicated by eosinophilic ascites. Previously had been stable for years until January 2021. In 06/2021, noted increase abdominal symptoms: diarrhea, stomach churning, stabbing pain - Prior symptoms very similar to flare in January. Received prednisone burst and then taper, last dose was 10/8. Still with abdominal symptoms, but reports better than before. No changes were made at last viit in [place] from GI. Previously felt Fasenra at Q8 week dosing did not control symptoms. [place] better on Q4 week dosing. Unable to get approved off-label. AEC 100 with most recent recheck.Now there is approved Fasenra dosing for EGPA, started today. 11/27/2024 Rash and other nonspecific skin eruption (ICD-10 - R21) Various types of rashes. She has been having bruise-like lesions but unclear if this is related to EGPA - Clear on exam today. slated to see Derm @ [facility]. consider a biopsy by Derm to confirm Various types of rashes. She has been having bruise-like lesions but unclear if this is related to EGPA 01/22/2025 Rash and other nonspecific skin eruption (ICD-10 - R21) Various types of rashes. She had been having bruise-like lesions but unclear if this is related to EGPA - Clear on exam today. slated to see Derm @ [facility]. consider a biopsy by Derm to confirm Various types of rashes. She has been having bruise-like lesions but unclear if this is related to EGPA 07/31/2024 Rash and other nonspecific skin eruption (ICD-10 - R21) Various types of rashes. She has been having bruise-like lesions but unclear if this is related to EGPA - Clear on exam today. slated to see Derm @ [facility]. consider a biopsy by Derm to confirm 08/28/2024 Insomnia, unspecified (ICD-10 - G47.00) 08/28/2024 Chronic fatigue, unspecified (ICD-10 - R53.82) 05/08/2024 Rash and other nonspecific skin eruption (ICD-10 - R21) Various types of rashes. She has been having bruise-like lesions but unclear if this is related to EGPA -clear on exam today. slated to see Derm @ [facility]. consider a biopsy by Derm to confirm 06/09/2024 Rash and other nonspecific skin eruption (ICD-10 - R21) Various types of rashes. She has been having bruise-like lesions but unclear if this is related to EGPA - Clear on exam today. slated to see Derm @ [facility]. 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 Previously had been stable for years until January 2021. In 06/2021, noted increase abdominal symptoms: diarrhea, stomach churning, stabbing pain - Prior symptoms very similar to flare in January. Received prednisone burst and then taper, last dose was 07/29. Still with abdominal symptoms, but reports better than before. No changes were made at last viit in from GI. Previously felt Fasenra at Q8 week dosing did not control symptoms. [place] better on Q4 week dosing. Unable to get approved off-label. AEC 100 with most recent recheck. Changed back to Nucala AEC=0. - Now off swallowed steroid and elimination diet per [facility] - needs to be c/w wheat and dairy avoidance per Dr. Vargas. - Needs f/u with GI if symptoms worsen 07/03/2024 Rash and other nonspecific skin eruption (ICD-10 - R21) Various types of rashes. She has been having bruise-like lesions but unclear if this is related to EGPA - Clear on exam today. slated to see Derm @ [facility]. consider a biopsy by Derm to confirm 02/14/2024 Rash and other nonspecific skin eruption (ICD-10 - R21) Various types of rashes. She has been having bruise-like lesions but unclear if this is related to EGPA -clear on exam today. slated to see Derm @ [facility]. consider a biopsy by Derm to confirm 03/13/2024 Rash and other nonspecific skin eruption (ICD-10 - R21) Various types of rashes. She has been having bruise-like lesions but unclear if this is related to EGPA -clear on exam today. slated to see Derm @ [facility]. consider a biopsy by Derm to confirm 04/10/2024 Rash and other nonspecific skin eruption (ICD-10 - R21) Various types of rashes. She has been having bruise-like lesions but unclear if this is related to EGPA -clear on exam today. slated to see Derm @ [facility]. consider a biopsy by Derm to confirm 12/25/2024 Rash and other nonspecific skin eruption (ICD-10 - R21) Various types of rashes. She has been having bruise-like lesions but unclear if this is related to EGPA - Clear on exam today. slated to see Derm @ [facility]. consider a biopsy by Derm to confirm Various types of rashes. She has been having bruise-like lesions but unclear if this is related to EGPA 10/30/2024 Rash and other nonspecific skin eruption (ICD-10 - R21) Various types of rashes. She has been having bruise-like lesions but unclear if this is related to EGPA - Clear on exam today. slated to see Derm @ [facility]. consider a biopsy by Derm to confirm Various types of rashes. She has been having bruise-like lesions but unclear if this is related to EGPA 10/02/2024 Rash and other nonspecific skin eruption (ICD-10 - R21) Various types of rashes. She has been having bruise-like lesions but unclear if this is related to EGPA - Clear on exam today. slated to see Derm @ [facility]. 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 Previously well-controlled on Zyrtec/Pepcid BID and Singulair QD, with hydroxyzine PRN. No interval flares. Dr. Ortiz following. Prior lab work by Dr. 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 However, this may be vasculitis as her lesions are lasting >24 hrs. Will have her start documenting lesions with pictures and journal if symptoms recur. No biopsy available for review 10/30/2024 Idiopathic urticaria (ICD-10 - L50.1) Presumed urticaria since 11/21/18. Previously well-controlled on Zyrtec/Pepcid BID and Singulair QD, with hydroxyzine PRN. No interval flares. Dr. Ortiz following. Prior lab work by Dr. 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 However, this may be vasculitis as her lesions are lasting >24 hrs. Will have her start documenting lesions with pictures and journal if symptoms recur. No biopsy available for review Now off high dose anthistamines, only on Zyrtec and Singulair QD 12/25/2024 Idiopathic urticaria (ICD-10 - L50.1) Presumed urticaria since 11/21/18. Previously well-controlled on Zyrtec/Pepcid BID and Singulair QD, with hydroxyzine PRN. No interval flares. Dr. Ortiz following. Prior lab work by Dr. 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 However, this may be vasculitis as her lesions are lasting >24 hrs. Will have her start documenting lesions with pictures and journal if symptoms recur. No biopsy available for review Now off high dose anthistamines, only on Zyrtec and Singulair QD 05/08/2024 Idiopathic urticaria (ICD-10 - L50.1) Presumed urticaria since 11/21/18. Previously well-controlled on Zyrtec/Pepcid BID and Singulair QD, with hydroxyzine PRN. No interval flares. Dr. Ortiz following. Prior lab work by Dr. 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 However, this may be vasculitis as her lesions are lasting >24 hrs. Will have her start documenting lesions with pictures and journal. No biopsy available for review 04/10/2024 Idiopathic urticaria (ICD-10 - L50.1) Presumed urticaria since 11/21/18. Previously well-controlled on Zyrtec/Pepcid BID and Singulair QD, with hydroxyzine PRN. No interval flares. Dr. Ortiz following. Prior lab work by Dr. 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 However, this may be vasculitis as her lesions are lasting >24 hrs. Will have her start documenting lesions with pictures and journal. No biopsy available for review 04/05/2024 Idiopathic urticaria (ICD-10 - L50.1) 03/13/2024 Idiopathic urticaria (ICD-10 - L50.1) Presumed urticaria since 11/21/18. Previously well-controlled on Zyrtec/Pepcid BID and Singulair QD, with hydroxyzine PRN. No interval flares. Dr. Ortiz following. Prior lab work by Dr. 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 However, this may be vasculitis as her lesions are lasting >24 hrs. Will have her start documenting lesions with pictures and journal. No biopsy available for review 02/14/2024 Idiopathic urticaria (ICD-10 - L50.1) Presumed urticaria since 11/21/18. Previously well-controlled on Zyrtec/Pepcid BID and Singulair QD, with hydroxyzine PRN. No interval flares. Dr. Ortiz following. Prior lab work by Dr. 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 However, this may be vasculitis as her lesions are lasting >24 hrs. Will have her start documenting lesions with pictures and journal. No biopsy available for review 07/08/2024 Rash and other nonspecific skin eruption (ICD-10 - R21) Various types of rashes. She has been having bruise-like lesions but unclear if this is related to EGPA - Slated to see Derm @ [facility]. consider a biopsy by Derm to confirm 07/31/2024 Idiopathic urticaria (ICD-10 - L50.1) Presumed urticaria since 11/21/18. Previously well-controlled on Zyrtec/Pepcid BID and Singulair QD, with hydroxyzine PRN. No interval flares. Dr. Ortiz following. Prior lab work by Dr. 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 However, this may be vasculitis as her lesions are lasting >24 hrs. Will have her start documenting lesions with pictures and journal if symptoms recur. No biopsy available for review 07/03/2024 Idiopathic urticaria (ICD-10 - L50.1) Presumed urticaria since 11/21/18. Previously well-controlled on Zyrtec/Pepcid BID and Singulair QD, with hydroxyzine PRN. No interval flares. Dr. Ortiz following. Prior lab work by Dr. 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 However, this may be vasculitis as her lesions are lasting >24 hrs. Will have her start documenting lesions with pictures and journal if symptoms recur. No biopsy available for review 06/09/2024 Idiopathic urticaria (ICD-10 - L50.1) Presumed urticaria since 11/21/18. Previously well-controlled on Zyrtec/Pepcid BID and Singulair QD, with hydroxyzine PRN. No interval flares. Dr. Ortiz following. Prior lab work by Dr. 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 However, this may be vasculitis as her lesions are lasting >24 hrs. Will have her start documenting lesions with pictures and journal if symptoms recur. No biopsy available for review 08/28/2024 Irritability and anger (ICD-10 - R45.4) 08/28/2024 Insomnia, unspecified (ICD-10 - G47.00) 01/22/2025 Idiopathic urticaria (ICD-10 - L50.1) Presumed urticaria since 11/21/18. Previously well-controlled on Zyrtec/Pepcid BID and Singulair QD, with hydroxyzine PRN. No interval flares. - Dr. Ortiz following. Prior lab work by Dr. 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 However, this may be vasculitis as her lesions are lasting >24 hrs. Will have her start documenting lesions with pictures and journal if symptoms recur. No biopsy available for review Now off high dose anthistamines, only on Zyrtec and Singulair QD 11/27/2024 Idiopathic urticaria (ICD-10 - L50.1) Presumed urticaria since 11/21/18. Previously well-controlled on Zyrtec/Pepcid BID and Singulair QD, with hydroxyzine PRN. No interval flares. Dr. Ortiz following. Prior lab work by Dr. 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 However, this may be vasculitis as her lesions are lasting >24 hrs. Will have her start documenting lesions with pictures and journal if symptoms recur. 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 Resistive breathing exercises previously discussed. Consider speech therapy. Historic attacks of inspiratory dyspnea and cough associated with elevated anxiety was likely due to vocal cord dysfunction rather than poor asthma control. Resistive breathing exercises previously discussed. 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 Resistive breathing exercises previously discussed. 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 Resistive breathing exercises previously discussed. 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 Resistive breathing exercises previously discussed. 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 Resistive breathing exercises previously discussed. Consider speech therapy 07/08/2024 Idiopathic urticaria (ICD-10 - L50.1) Presumed urticaria since 11/21/18. Previously well-controlled on Zyrtec/Pepcid BID and Singulair QD, with hydroxyzine PRN. No interval flares. Dr. Ortiz following. Prior lab work by Dr. 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 However, this may be vasculitis as her lesions are lasting >24 hrs. Will have her start documenting lesions with pictures and journal if symptoms recur. 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 Resistive breathing exercises previously discussed. 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 Resistive breathing exercises previously discussed. 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 Resistive breathing exercises previously discussed. 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 Resistive breathing exercises previously discussed. Consider speech therapy. Historic attacks of inspiratory dyspnea and cough associated with elevated anxiety was likely due to vocal cord dysfunction rather than poor asthma control. Resistive breathing exercises previously discussed. 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 Resistive breathing exercises previously discussed. Consider speech therapy. Historic attacks of inspiratory dyspnea and cough associated with elevated anxiety was likely due to vocal cord dysfunction rather than poor asthma control. Resistive breathing exercises previously discussed. 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 Resistive breathing exercises previously discussed. Consider speech therapy Historic attacks of inspiratory dyspnea and cough associated with elevated anxiety was likely due to vocal cord dysfunction rather than poor asthma control. Resistive breathing exercises previously discussed. 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 Resistive breathing exercises previously discussed. 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 Repeat AEC in December 2018 off systemic corticosteroids was normal at 73. Prior CBC (on Nucala) 120 in the ER, Then on Fasenra was 100, 1 week off steroids. Plan to recheck on new regimen, plan to discuss next visit 10/30/2024 Eosinophilia (ICD-10 - D72.1) Nataliia's AEC off steroids prior to NUCALA was 1120, had level of 1916 in February 2008 in midst of active eosinophilic esophagitis/enteri tis. 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 Repeat AEC in December 2018 off systemic corticosteroids was normal at 73. Prior CBC (on Nucala) 120 in the ER, Then on Fasenra was 100, 1 week off steroids. Plan to recheck on new regimen, plan to discuss next visit 12/25/2024 Eosinophilia (ICD-10 - D72.1) Nataliia's AEC off steroids prior to NUCALA was 1120, had level of 1916 in February 2008 in midst of active eosinophilic esophagitis/enteri tis. 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 Repeat AEC in December 2018 off systemic corticosteroids was normal at 73. Prior CBC (on Nucala) 120 in the ER, Then on Fasenra was 100, 1 week off steroids. Plan to recheck on new regimen, plan to discuss next visit - Will check abs eo count right before dosing, also recommend ANCA as well. 04/10/2024 Eosinophilia (ICD-10 - D72.1) Nataliia's AEC off steroids prior to NUCALA was 1120, had level of 1916 in February 2008 in midst of active eosinophilic esophagitis/enteri tis. 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 Repeat AEC in December 2018 off systemic corticosteroids was normal at 73. Prior CBC (on Nucala) 120 in the ER, Then on Fasenra was 100, 1 week off steroids. Plan on rechecking now on new regimen 05/08/2024 Eosinophilia (ICD-10 - D72.1) Nataliia's AEC off steroids prior to NUCALA was 1120, had level of 1916 in February 2008 in midst of active eosinophilic esophagitis/enteri tis. 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 Repeat AEC in December 2018 off systemic corticosteroids was normal at 73. Prior CBC (on Nucala) 120 in the ER, Then on Fasenra was 100, 1 week off steroids. Plan on rechecking now on new regimen 03/13/2024 Eosinophilia (ICD-10 - D72.1) Nataliia's AEC off steroids prior to NUCALA was 1120, had level of 1916 in February 2008 in midst of active eosinophilic esophagitis/enteri tis. 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 Repeat AEC in December 2018 off systemic corticosteroids was normal at 73. Prior CBC (on Nucala) 120 in the ER, Then on Fasenra was 100, 1 week off steroids. Plan on rechecking now on new regimen 02/14/2024 Eosinophilia (ICD-10 - D72.1) Nataliia's AEC off steroids prior to NUCALA was 1120, had level of 1916 in February 2008 in midst of active eosinophilic esophagitis/enteri tis. 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 Repeat AEC in December 2018 off systemic corticosteroids was normal at 73. Prior CBC (on Nucala) 120 in the ER, Then on Fasenra was 100, 1 week off steroids. 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 Resistive breathing exercises previously discussed. Consider speech therapy 07/31/2024 Eosinophilia (ICD-10 - D72.1) Nataliia's AEC off steroids prior to NUCALA was 1120, had level of 1916 in February 2008 in midst of active eosinophilic esophagitis/enteri tis. 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 Repeat AEC in December 2018 off systemic corticosteroids was normal at 73. Prior CBC (on Nucala) 120 in the ER, Then on Fasenra was 100, 1 week off steroids. Plan to recheck on new regimen, plan to discuss next visit 07/03/2024 Eosinophilia (ICD-10 - D72.1) Nataliia's AEC off steroids prior to NUCALA was 1120, had level of 1916 in February 2008 in midst of active eosinophilic esophagitis/enteri tis. 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 Repeat AEC in December 2018 off systemic corticosteroids was normal at 73. Prior CBC (on Nucala) 120 in the ER, Then on Fasenra was 100, 1 week off steroids. Plan to recheck on new regimen, plan to discuss next visit 06/09/2024 Eosinophilia (ICD-10 - D72.1) Nataliia's AEC off steroids prior to NUCALA was 1120, had level of 1916 in February 2008 in midst of active eosinophilic esophagitis/enteri tis. 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 Repeat AEC in December 2018 off systemic corticosteroids was normal at 73. Prior CBC (on Nucala) 120 in the ER, Then on Fasenra was 100, 1 week off steroids. Plan to recheck on new regimen, plan to discuss next visit 08/28/2024 Other fatigue (ICD-10 - R53.83) 08/28/2024 Other amnesia (ICD-10 - R41.3) 11/27/2024 Eosinophilia (ICD-10 - D72.1) Nataliia's AEC off steroids prior to NUCALA was 1120, had level of 1916 in February 2008 in midst of active eosinophilic esophagitis/enteri tis. 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 Repeat AEC in December 2018 off systemic corticosteroids was normal at 73. Prior CBC (on Nucala) 120 in the ER, Then on Fasenra was 100, 1 week off steroids. Plan to recheck on new regimen, plan to discuss next visit - Will check abs eo count right before dosing, also recommend ANCA as well. 01/22/2025 Eosinophilia (ICD-10 - D72.1) Nataliia's AEC off steroids prior to NUCALA was 1120, had level of 1916 in February 2008 in midst of active eosinophilic esophagitis/enteri tis. 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 Repeat AEC in December 2018 off systemic corticosteroids was normal at 73. Prior CBC (on Nucala) 120 in the ER, Then on Fasenra was 100, 1 week off steroids. Plan to recheck on new regimen, plan to discuss next visit - Will check abs eo count right before dosing, also recommend ANCA as well. 11/27/2024 Eosinophilic esophagitis (ICD-10 - K20.0) Prior diagnosis in the early . Continues Pantoprazole 20 mg BID, Pepcid HS. No changes made with GI. Last visit stepped up to 40 delayed release as symptoms are not controlled - Dr. Vargas started swallowed budesonide but pt reports having no dysphagia or food sticking -off for months now - Admits to not being c/w dairy or wheat avoidance Prior diagnosis in the early . Continues Pantoprazole 20 mg BID, Pepcid HS. No changes made with GI. Last visit stepped up to 40 delayed release as symptoms are not controlled 01/22/2025 Eosinophilic esophagitis (ICD-10 - K20.0) Prior diagnosis in the early . Continues Pantoprazole 20 mg BID, Pepcid HS. No changes made with GI. Last visit stepped up to 40 delayed release as symptoms are not controlled - Dr. Vargas started swallowed budesonide but pt reports having no dysphagia or food sticking -off for months now - Admits to not being c/w dairy or wheat avoidance Prior diagnosis in the early . Continues Pantoprazole 20 mg BID, Pepcid HS. No changes made with GI. Last visit stepped up to 40 delayed release as symptoms are not controlled. - Refills sent for pantoprazole. In search of new GI specialist. 08/28/2024 Other fatigue (ICD-10 - R53.83) 07/31/2024 Eosinophilic esophagitis (ICD-10 - K20.0) Prior diagnosis in the early . Continues Pantoprazole 20 mg BID, Pepcid HS. No changes made with GI. Last visit stepped up to 40 delayed release as symptoms are not controlled - Dr. Vargas started swallowed budesonide but pt reports having no dysphagia or food sticking -off for months with increased food sticking. - Admits to not being c/w dairy or wheat avoidance 08/28/2024 Other malaise (ICD-10 - R53.81) 05/08/2024 Eosinophilic esophagitis (ICD-10 - K20.0) Prior diagnosis in the early 1999s. Continues Pantoprazole 20 mg BID, Pepcid HS. No changes made with GI. Last visit stepped up to 40 delayed release as symptoms are not controlled -Dr. Vargas started swallowed budesonide but pt reports having no dysphagia or food sticking -off for months with increased food sticking -admits to not being c/w dairy or wheat avoidance 06/09/2024 Eosinophilic esophagitis (ICD-10 - K20.0) Prior diagnosis in the early 1999s. Continues Pantoprazole 20 mg BID, Pepcid HS. No changes made with GI. Last visit stepped up to 40 delayed release as symptoms are not controlled - Dr. Vargas started swallowed budesonide but pt reports having no dysphagia or food sticking -off for months with increased food sticking. - Admits to not being c/w dairy or wheat avoidance 07/08/2024 Eosinophilia (ICD-10 - D72.1) Nataliia's AEC off steroids prior to NUCALA was 1120, had level of 1916 in February 2008 in midst of active eosinophilic esophagitis/enteri tis. 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 Repeat AEC in December 2018 off systemic corticosteroids was normal at 73. Prior CBC (on Nucala) 120 in the ER, Then on Fasenra was 100, 1 week off steroids. Plan to recheck on new regimen, plan to discuss next visit 07/03/2024 Eosinophilic esophagitis (ICD-10 - K20.0) Prior diagnosis in the early . Continues Pantoprazole 20 mg BID, Pepcid HS. No changes made with GI. Last visit stepped up to 40 delayed release as symptoms are not controlled - Dr. Vargas started swallowed budesonide but pt reports having no dysphagia or food sticking -off for months with increased food sticking. - Admits to not being c/w dairy or wheat avoidance 02/14/2024 Eosinophilic esophagitis (ICD-10 - K20.0) Prior diagnosis in the early . Continues Pantoprazole 20 mg BID, Pepcid HS. No changes made with GI. Last visit stepped up to 40 delayed release as symptoms are not controlled -Dr. Vargas started swallowed budesonide but pt reports having no dysphagia or food sticking -off for months with increased food sticking -admits to not being c/w dairy or wheat avoidance 03/13/2024 Eosinophilic esophagitis (ICD-10 - K20.0) Prior diagnosis in the early . Continues Pantoprazole 20 mg BID, Pepcid HS. No changes made with GI. Last visit stepped up to 40 delayed release as symptoms are not controlled -Dr. Vargas started swallowed budesonide but pt reports having no dysphagia or food sticking -off for months with increased food sticking -admits to not being c/w dairy or wheat avoidance 04/10/2024 Eosinophilic esophagitis (ICD-10 - K20.0) Prior diagnosis in the early . Continues Pantoprazole 20 mg BID, Pepcid HS. No changes made with GI. Last visit stepped up to 40 delayed release as symptoms are not controlled -Dr. Vargas started swallowed budesonide but pt reports having no dysphagia or food sticking -off for months with increased food sticking -admits to not being c/w dairy or wheat avoidance 04/05/2024 Eosinophilic esophagitis (ICD-10 - K20.0) 12/25/2024 Eosinophilic esophagitis (ICD-10 - K20.0) Prior diagnosis in the early . Continues Pantoprazole 20 mg BID, Pepcid HS. No changes made with GI. Last visit stepped up to 40 delayed release as symptoms are not controlled - Dr. Vargas started swallowed budesonide but pt reports having no dysphagia or food sticking -off for months now - Admits to not being c/w dairy or wheat avoidance Prior diagnosis in the early . Continues Pantoprazole 20 mg BID, Pepcid HS. No changes made with GI. Last visit stepped up to 40 delayed release as symptoms are not controlled 10/30/2024 Eosinophilic esophagitis (ICD-10 - K20.0) Prior diagnosis in the early . Continues Pantoprazole 20 mg BID, Pepcid HS. No changes made with GI. Last visit stepped up to 40 delayed release as symptoms are not controlled - Dr. Vargas started swallowed budesonide but pt reports having no dysphagia or food sticking -off for months now - Admits to not being c/w dairy or wheat avoidance Prior diagnosis in the early . Continues Pantoprazole 20 mg BID, Pepcid HS. No changes made with GI. Last visit stepped up to 40 delayed release as symptoms are not controlled 09/01/2024 Eosinophilia (ICD-10 - D72.1) 10/02/2024 Eosinophilic esophagitis (ICD-10 - K20.0) Prior diagnosis in the early . Continues Pantoprazole 20 mg BID, Pepcid HS. No changes made with GI. Last visit stepped up to 40 delayed release as symptoms are not controlled - Dr. Vargas started swallowed budesonide but pt reports having no dysphagia or food sticking -off for months now - Admits to not being c/w dairy or wheat avoidance 10/02/2024 Allergic rhinitis due to pollen (ICD-10 - J30.1) Nataliia clearly suffers from atopic disease based upon our skin testing. She continues on medications. No longer on SCIT. - Consider resuming SCIT, Nataliia is not interested at this time 09/01/2024 Eosinophilic esophagitis (ICD-10 - K20.0) 10/30/2024 Allergic rhinitis due to pollen (ICD-10 - J30.1) Nataliia clearly suffers from atopic disease based upon our skin testing. She continues on medications. No longer on SCIT. - Consider resuming SCIT, Nataliia is not interested at this time 12/25/2024 Allergic rhinitis due to pollen (ICD-10 - J30.1) Nataliia clearly suffers from atopic disease based upon our skin testing. She continues on medications. No longer on SCIT. - Consider resuming SCIT, Nataliia is not interested at this time 01/22/2025 Allergic rhinitis due to pollen (ICD-10 - J30.1) Nataliia clearly suffers from atopic disease based upon our skin testing. She continues on medications. No longer on SCIT. - Consider resuming SCIT, Nataliia is not interested at this time 04/05/2024 Allergic rhinitis due to pollen (ICD-10 - J30.1) 04/10/2024 Allergic rhinitis due to pollen (ICD-10 - J30.1) Nataliia clearly suffers from atopic disease based upon our recent skin testing. She continues on medications. No longer on SCIT -consider resuming - add on atrovent nasal 03/13/2024 Allergic rhinitis due to pollen (ICD-10 - J30.1) Nataliia clearly suffers from atopic disease based upon our recent skin testing. She continues on medications. No longer on SCIT -consider resuming - add on atrovent nasal 02/14/2024 Allergic rhinitis due to pollen (ICD-10 - J30.1) Nataliia clearly suffers from atopic disease based upon our recent skin testing. She continues on medications. No longer on SCIT -consider resuming - add on atrovent nasal 07/03/2024 Allergic rhinitis due to pollen (ICD-10 - J30.1) Nataliia clearly suffers from atopic disease based upon our skin testing. She continues on medications. No longer on SCIT. - Consider resuming SCIT, Nataliia is not interested at this time 07/08/2024 Eosinophilic esophagitis (ICD-10 - K20.0) Prior diagnosis in the early . Continues Pantoprazole 20 mg BID, Pepcid HS. No changes made with GI. Last visit stepped up to 40 delayed release as symptoms are not controlled - Dr. Vargas started swallowed budesonide but pt reports having no dysphagia or food sticking -off for months with increased food sticking. - Admits to not being c/w dairy or wheat avoidance 06/09/2024 Allergic rhinitis due to pollen (ICD-10 - J30.1) Nataliia clearly suffers from atopic disease based upon our recent skin testing. She continues on medications. No longer on SCIT. - Consider resuming SCIT, Nataliia is not interested at this time 05/08/2024 Allergic rhinitis due to pollen (ICD-10 - J30.1) Nataliia clearly suffers from atopic disease based upon our recent skin testing. She continues on medications. No longer on SCIT -consider resuming - add on atrovent nasal 07/31/2024 Allergic rhinitis due to pollen (ICD-10 - J30.1) Nataliia clearly suffers from atopic disease based upon our skin testing. She continues on medications. No longer on SCIT. - Consider resuming SCIT, Nataliia is not interested at this time 08/28/2024 Other malaise (ICD-10 - R53.81) 08/28/2024 Pain in unspecified joint (ICD-10 - M25.50) 11/27/2024 Allergic rhinitis due to pollen (ICD-10 - J30.1) Nataliia clearly suffers from atopic disease based upon our skin testing. She continues on medications. No longer on SCIT. - Consider resuming SCIT, Nataliia is not interested at this time 11/27/2024 Allergic rhinitis due to animal (cat) (dog) hair and dander (ICD-10 - J30.81) Follow allergen avoidance, meds and consider resuming SCIT as an adjunctive treatment to current regimen. Follow allergen avoidance, meds and consider resuming SCIT as an adjunctive treatment to current regimen. 01/22/2025 Allergic rhinitis due to animal (cat) (dog) hair and dander (ICD-10 - J30.81) Follow allergen avoidance, meds and consider resuming SCIT as an adjunctive treatment to current regimen. Follow allergen avoidance, meds and consider resuming SCIT as an adjunctive treatment to current regimen. 08/28/2024 Pain in unspecified joint (ICD-10 - M25.50) 06/09/2024 Allergic rhinitis due to animal (cat) (dog) hair and dander (ICD-10 - J30.81) Follow allergen avoidance, meds and consider resuming SCIT as an adjunctive treatment to current regimen. 07/03/2024 Allergic rhinitis due to animal (cat) (dog) hair and dander (ICD-10 - J30.81) Follow allergen avoidance, meds and consider resuming SCIT as an adjunctive treatment to current regimen. 07/31/2024 Allergic rhinitis due to animal (cat) (dog) hair and dander (ICD-10 - J30.81) Follow allergen avoidance, meds and consider resuming SCIT as an adjunctive treatment to current regimen. 07/08/2024 Allergic rhinitis due to pollen (ICD-10 - J30.1) Nataliia clearly suffers from atopic disease based upon our skin testing. She continues on medications. No longer on SCIT. - Consider resuming SCIT, Nataliia is not interested at this time 02/14/2024 Allergic rhinitis due to animal (cat) (dog) hair and dander (ICD-10 - J30.81) Follow allergen avoidance, meds and consider resuming SCIT as an adjunctive treatment to current regimen. 04/05/2024 Allergic rhinitis due to animal (cat) (dog) hair and dander (ICD-10 - J30.81) 03/13/2024 Allergic rhinitis due to animal (cat) (dog) hair and dander (ICD-10 - J30.81) Follow allergen avoidance, meds and consider resuming SCIT as an adjunctive treatment to current regimen. 05/08/2024 Allergic rhinitis due to animal (cat) (dog) hair and dander (ICD-10 - J30.81) Follow allergen avoidance, meds and consider resuming SCIT as an adjunctive treatment to current regimen. 04/10/2024 Allergic rhinitis due to animal (cat) (dog) hair and dander (ICD-10 - J30.81) Follow allergen avoidance, meds and consider resuming SCIT as an adjunctive treatment to current regimen. 12/25/2024 Allergic rhinitis due to animal (cat) (dog) hair and dander (ICD-10 - J30.81) Follow allergen avoidance, meds and consider resuming SCIT as an adjunctive treatment to current regimen. Follow allergen avoidance, meds and consider resuming SCIT as an adjunctive treatment to current regimen. 10/30/2024 Allergic rhinitis due to animal (cat) (dog) hair and dander (ICD-10 - J30.81) Follow allergen avoidance, meds and consider resuming SCIT as an adjunctive treatment to current regimen. Follow allergen avoidance, meds and consider resuming SCIT as an adjunctive treatment to current regimen. 09/01/2024 Allergic rhinitis due to pollen (ICD-10 - J30.1) 10/02/2024 Allergic rhinitis due to animal (cat) (dog) hair and dander (ICD-10 - J30.81) Follow allergen avoidance, meds and consider resuming SCIT as an adjunctive treatment to current regimen. 10/02/2024 Other allergic rhinitis (ICD-10 - J30.89) Follow allergen avoidance, meds and consider resuming SCIT as an adjunctive treatment to current regimen. 09/01/2024 Allergic rhinitis due to animal (cat) (dog) hair and dander (ICD-10 - J30.81) 10/30/2024 Other allergic rhinitis (ICD-10 - J30.89) Follow allergen avoidance, meds and consider resuming SCIT as an adjunctive treatment to current regimen. 12/25/2024 Other allergic rhinitis (ICD-10 - J30.89) Follow allergen avoidance, meds and consider resuming SCIT as an adjunctive treatment to current regimen. 01/22/2025 Other allergic rhinitis (ICD-10 - J30.89) Follow allergen avoidance, meds and consider resuming SCIT as an adjunctive treatment to current regimen. 04/10/2024 Other allergic rhinitis (ICD-10 - J30.89) Follow allergen avoidance, meds and consider resuming SCIT as an adjunctive treatment to current regimen. 03/13/2024 Other allergic rhinitis (ICD-10 - J30.89) Follow allergen avoidance, meds and consider resuming SCIT as an adjunctive treatment to current regimen. 02/14/2024 Other allergic rhinitis (ICD-10 - J30.89) Follow allergen avoidance, meds and consider resuming SCIT as an adjunctive treatment to current regimen. 07/03/2024 Other allergic rhinitis (ICD-10 - J30.89) Follow allergen avoidance, meds and consider resuming SCIT as an adjunctive treatment to current regimen. 07/08/2024 Allergic rhinitis due to animal (cat) (dog) hair and dander (ICD-10 - J30.81) Follow allergen avoidance, meds and consider resuming SCIT as an adjunctive treatment to current regimen. 06/09/2024 Other allergic rhinitis (ICD-10 - J30.89) Follow allergen avoidance, meds and consider resuming SCIT as an adjunctive treatment to current regimen. 05/08/2024 Other allergic rhinitis (ICD-10 - J30.89) Follow allergen avoidance, meds and consider resuming SCIT as an adjunctive treatment to current regimen. 08/28/2024 Vitamin D deficiency, unspecified (ICD-10 - E55.9) 07/31/2024 Other allergic rhinitis (ICD-10 - J30.89) Follow allergen avoidance, meds and consider resuming SCIT as an adjunctive treatment to current regimen. 11/27/2024 Other allergic rhinitis (ICD-10 - J30.89) Follow allergen avoidance, meds and consider resuming SCIT as an adjunctive treatment to current regimen. 11/27/2024 Vitamin D deficiency, unspecified (ICD-10 - E55.9) Continue 50k IU weekly per [employer]. Most recent lab work was normal Continue 50k IU weekly per [employer]. 01/22/2025 Vitamin D deficiency, unspecified (ICD-10 - E55.9) Continue 50k IU weekly per [employer]. Most recent lab work was normal. 07/31/2024 Vitamin D deficiency, unspecified (ICD-10 - E55.9) Continue 50k IU weekly per [employer]. Most recent lab work was normal 05/08/2024 Allergy status to penicillin (ICD-10 - Z88.0) Nataliia has a remote history of acute dyspnea after receiving IM penicillin with no other symptoms, which would be an atypical presentation for IgE-mediated penicillin allergy. Recommend PCN allergy testing at a later date 06/09/2024 Allergy status to penicillin (ICD-10 - Z88.0) Nataliia has a remote history of acute dyspnea after receiving IM penicillin with no other symptoms, which would be an atypical presentation for IgE-mediated penicillin allergy. Recommend PCN allergy testing at a later date 07/03/2024 Allergy status to penicillin (ICD-10 - Z88.0) Nataliia has a remote history of acute dyspnea after receiving IM penicillin with no other symptoms, which would be an atypical presentation for IgE-mediated penicillin allergy. - Currently holding all antihistamines at this time for upcoming PCN testing next week. 07/08/2024 Other allergic rhinitis (ICD-10 - J30.89) Follow allergen avoidance, meds and consider resuming SCIT as an adjunctive treatment to current regimen. 02/14/2024 Allergy status to penicillin (ICD-10 - Z88.0) Natlaiia has a remote history of acute dyspnea after receiving IM penicillin with no other symptoms, which would be an atypical presentation for IgE-mediated penicillin allergy. Recommend PCN allergy testing at a later date 03/13/2024 Allergy status to penicillin (ICD-10 - Z88.0) Nataliia has a remote history of acute dyspnea after receiving IM penicillin with no other symptoms, which would be an atypical presentation for IgE-mediated penicillin allergy. Recommend PCN allergy testing at a later date 04/10/2024 Allergy status to penicillin (ICD-10 - Z88.0) Nataliia has a remote history of acute dyspnea after receiving IM penicillin with no other symptoms, which would be an atypical presentation for IgE-mediated penicillin allergy. 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 Most recent lab work was normal Continue 50k IU weekly per MAINFRAME CONSULTANT. 10/30/2024 Vitamin D deficiency, unspecified (ICD-10 - E55.9) Continue 50k IU weekly per MAINFRAME CONSULTANT. Most recent lab work was normal Continue 50k IU weekly per MAINFRAME CONSULTANT. 10/02/2024 Vitamin D deficiency, unspecified (ICD-10 - E55.9) Continue 50k IU weekly per MAINFRAME CONSULTANT. Most recent lab work was normal 09/01/2024 Other allergic rhinitis (ICD-10 - J30.89) 09/01/2024 Vitamin D deficiency, unspecified (ICD-10 - E55.9) 10/02/2024 Nausea (ICD-10 - R11.0) Increased due to increase in Wegovy. 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 Most recent lab work was normal 03/13/2024 Vitamin D deficiency, unspecified (ICD-10 - E55.9) Continue 50k IU weekly per MAINFRAME CONSULTANT. Most recent lab work was normal 02/14/2024 Vitamin D deficiency, unspecified (ICD-10 - E55.9) Continue 50k IU weekly per MAINFRAME CONSULTANT. Most recent lab work was normal 07/08/2024 Vitamin D deficiency, unspecified (ICD-10 - E55.9) Continue 50k IU weekly per MAINFRAME CONSULTANT. Most recent lab work was normal 07/31/2024 Nausea (ICD-10 - R11.0) Increased due to increase in Wegovy. To discuss further with PCP 07/03/2024 Vitamin D deficiency, unspecified (ICD-10 - E55.9) Continue 50k IU weekly per MAINFRAME CONSULTANT. Most recent lab work was normal 06/09/2024 Vitamin D deficiency, unspecified (ICD-10 - E55.9) Continue 50k IU weekly per MAINFRAME CONSULTANT. Most recent lab work was normal 05/08/2024 Vitamin D deficiency, unspecified (ICD-10 - E55.9) Continue 50k IU weekly per MAINFRAME CONSULTANT. Most recent lab work was normal 01/22/2025 Nausea (ICD-10 - R11.0) Likely due to Zepbound but if persistent recommend GI f/u 11/27/2024 Nausea (ICD-10 - R11.0) Likely due to Zepbound but if persistent recommend GI f/u 11/27/2024 Anosmia (ICD-10 - R43.0) Anosmia. Presumed s/t Covid-19, but recommend ENT evaluation to rule out nasal polyposis due to comorbid conditions. Slated to see Dr. Lane in 12/2024. 01/22/2025 Anosmia (ICD-10 - R43.0) Anosmia. Presumed s/t Covid-19, but recommend ENT evaluation to rule out nasal polyposis due to comorbid conditions. Seen by Dr. Lane in 12/2024. -no polyps on rhinoscopy, had sinus CT scan 3 days ago, records not available for review. Records requested. 05/08/2024 Nausea (ICD-10 - R11.0) stable, continue per GI 06/09/2024 Nausea (ICD-10 - R11.0) stable, continue per GI 07/08/2024 Nausea (ICD-10 - R11.0) stable, continue per GI 07/03/2024 Nausea (ICD-10 - R11.0) stable, continue per GI 07/31/2024 Anosmia (ICD-10 - R43.0) Anosmia. Presumed s/t Covid-19, but recommend ENT evaluation to rule out nasal polyposis due to comorbid conditions. 02/14/2024 Nausea (ICD-10 - R11.0) stable, continue per GI 04/05/2024 Nausea (ICD-10 - R11.0) 03/13/2024 Nausea (ICD-10 - R11.0) stable, continue per GI 04/10/2024 Nausea (ICD-10 - R11.0) stable, continue per GI 12/25/2024 Anosmia (ICD-10 - R43.0) Anosmia. Presumed s/t Covid-19, but recommend ENT evaluation to rule out nasal polyposis due to comorbid conditions. Seen by Dr. Lane in 12/2024. -no polyps on rhinoscopy, slated for sinus CT 10/30/2024 Anosmia (ICD-10 - R43.0) Anosmia. Presumed s/t Covid-19, but recommend ENT evaluation to rule out nasal polyposis due to comorbid conditions. 10/02/2024 Anosmia (ICD-10 - R43.0) Anosmia. Presumed s/t Covid-19, but recommend ENT evaluation to rule out nasal polyposis due to comorbid conditions. 09/01/2024 Nausea (ICD-10 - R11.0) 09/01/2024 Anosmia (ICD-10 - R43.0) 10/02/2024 Allergy status to penicillin (ICD-10 - Z88.0) Nataliia has a remote history of acute dyspnea after receiving IM penicillin with no other symptoms, which would be an atypical presentation for IgE-mediated penicillin allergy. - SPT performed to Pre-Pen and Ubaldo, showing a positive result to Pre-Pen at last visit. Due to this, further testing was not pursued. - Given history and testing, would recommend continued absolute avoidance of PCN. - Can consider attempting testing again in the future 10/30/2024 Allergy status to penicillin (ICD-10 - Z88.0) Nataliia has a remote history of acute dyspnea after receiving IM penicillin with no other symptoms, which would be an atypical presentation for IgE-mediated penicillin allergy. - SPT performed to Pre-Pen and Ubaldo, showing a positive result to Pre-Pen at last visit. Due to this, further testing was not pursued. - Given history and testing, would recommend continued absolute avoidance of PCN. - Can consider attempting testing again in the future 12/25/2024 Allergy status to penicillin (ICD-10 - Z88.0) Nataliia has a remote history of acute dyspnea after receiving IM penicillin with no other symptoms, which would be an atypical presentation for IgE-mediated penicillin allergy. - SPT performed to Pre-Pen and Ubaldo, showing a positive result to Pre-Pen at last visit. Due to this, further testing was not pursued. - Given history and testing, would recommend continued absolute avoidance of PCN. - Can consider attempting testing again in the future 04/10/2024 Anosmia (ICD-10 - R43.0) New onset anosmia for past 2-3 weeks. Presumed s/t Covid-19, but recommend ENT evaluation to rule out nasal polyposis due to comorbid conditions. 07/31/2024 Allergy status to penicillin (ICD-10 - Z88.0) Nataliia has a remote history of acute dyspnea after receiving IM penicillin with no other symptoms, which would be an atypical presentation for IgE-mediated penicillin allergy. - SPT performed to Pre-Pen and Ubaldo, showing a positive result to Pre-Pen at last visit. Due to this, further testing was not pursued. - Given history and testing, would recommend continued absolute avoidance of PCN. - Can consider attempting testing again in the future 07/03/2024 Anosmia (ICD-10 - R43.0) New onset anosmia. Presumed s/t Covid-19, but recommend ENT evaluation to rule out nasal polyposis due to comorbid conditions. 07/08/2024 Anosmia (ICD-10 - R43.0) New onset anosmia. Presumed s/t Covid-19, but recommend ENT evaluation to rule out nasal polyposis due to comorbid conditions. 06/09/2024 Anosmia (ICD-10 - R43.0) New onset anosmia for past 2-3 weeks. Presumed s/t Covid-19, but recommend ENT evaluation to rule out nasal polyposis due to comorbid conditions. 05/08/2024 Anosmia (ICD-10 - R43.0) New onset anosmia for past 2-3 weeks. Presumed s/t Covid-19, but recommend ENT evaluation to rule out nasal polyposis due to comorbid conditions. 01/22/2025 Allergy status to penicillin (ICD-10 - Z88.0) Nataliia has a remote history of acute dyspnea after receiving IM penicillin with no other symptoms, which would be an atypical presentation for IgE-mediated penicillin allergy. - SPT performed to Pre-Pen and Ubaldo, showing a positive result to Pre-Pen at prior visit. Due to this, further testing was not pursued. - Given history and testing, would recommend continued absolute avoidance of PCN. - Can consider attempting testing again in the future 11/27/2024 Allergy status to penicillin (ICD-10 - Z88.0) Nataliia has a remote history of acute dyspnea after receiving IM penicillin with no other symptoms, which would be an atypical presentation for IgE-mediated penicillin allergy. - SPT performed to Pre-Pen and Ubaldo, showing a positive result to Pre-Pen at last visit. Due to this, further testing was not pursued. - Given history and testing, would recommend continued absolute avoidance of PCN. - Can consider attempting testing again in the future 11/27/2024 Elevated blood-pressure reading, without diagnosis of hypertension (ICD-10 - R03.0) BP elevated today without symptoms of urgency or emergency. Continue serial checks and follow-up with PCP 01/22/2025 Elevated blood-pressure reading, without diagnosis of hypertension (ICD-10 - R03.0) BP elevated today without symptoms of urgency or emergency. Continue serial checks and follow-up with PCP 06/09/2024 Elevated blood-pressure reading, without diagnosis of hypertension (ICD-10 - R03.0) BP elevated today without symptoms of urgency or emergency. Continue serial checks and follow-up with PCP 07/03/2024 Elevated blood-pressure reading, without diagnosis of hypertension (ICD-10 - R03.0) BP WNL today. Continue serial checks and follow-up with PCP 07/08/2024 Elevated blood-pressure reading, without diagnosis of hypertension (ICD-10 - R03.0) BP WNL today. Continue serial checks and follow-up with PCP 07/31/2024 Elevated blood-pressure reading, without diagnosis of hypertension (ICD-10 - R03.0) BP WNL today. Continue serial checks and follow-up with PCP 12/25/2024 Elevated blood-pressure reading, without diagnosis of hypertension (ICD-10 - R03.0) BP elevated today without symptoms of urgency or emergency. Continue serial checks and follow-up with PCP 10/30/2024 Elevated blood-pressure reading, without diagnosis of hypertension (ICD-10 - R03.0) 10/02/2024 Elevated blood-pressure reading, without diagnosis of hypertension (ICD-10 - R03.0) BP WNL today. Continue serial checks and follow-up with PCP 09/01/2024 Allergy status to penicillin (ICD-10 - Z88.0) 09/01/2024 Elevated blood-pressure reading, without diagnosis of hypertension (ICD-10 - R03.0) 07/01/2024 Other 08/28/2024 Other 02/14/2024 Other 03/13/2024 Other 04/10/2024 Other 05/08/2024 Other 06/09/2024 Other 07/03/2024 Other 07/08/2024 Other 07/31/2024 Other 10/02/2024 Other 10/30/2024 Other 11/27/2024 Other 12/25/2024 Other 01/22/2025 Other Plan Of Treatment Pending Test Test Name Order Date X ray : Chest 08/03/2021 CT Scan : Chest 12/07/2021 -Immunoglobulins A/G/M, Qn, Ser 05/08/20 23 -Immunoglobulins A/G/M, Qn, Ser 10/24/19 23 -CBC With Differential/Platelet 10/24/19 23 -CBC With Differential/Platelet 06/16/20 21 -CBC With Differential/Platelet 05/08/20 23 -Vitamin D, 25-Hydroxy 10/24/2022 -Vitamin D, 25-Hydroxy 05/08/2023 -Haemophilus influenzae B IgG 10/24/2022 -Haemophilus influenzae B IgG 05/08/2023 -TPMT Genetic Test 12/01/2021 -Pneumococcal Ab (23 Serotype) 3 -Pneumococcal Ab (23 Serotype) 3 CT Scan : Chest High Resolution W/O Cont rast 12/28/2021 Next Appt Details Provider Name:Alexis Saba , 02/19/2025 11:00:00 AM, [address], [address] [address], [place], [address], Provider Name:Alexis Saba , 02/26/2025 11:30:00 AM, [address] [facility], [address], [place], [address], Insurance Providers Payer Name Payer Address Payer Phone Subscriber Number Group Number Insured Name Patient Relationship to Insured Coverage Start Date Coverage End Date [employer] [address] [place] [address] [id number] Anila Zacarias Self - patient is the insured [address] [place] [address] [phone] [id number] Anila Zacarias Self - patient is the insured Medical (General) History Medical History History ICD Code Polyarteritis with lung involvement [Wilson rg-Tiffany] Eosinophilic gastritis or gastroenteriti s Eosinophilia Eosinophilic esophagitis Essential (primary) hypertension Anxiety disorder, unspecified Obesity, unspecified Severe persistent asthma, uncomplicated Allergic rhinitis due to animal (cat) (d og) hair and dander Other allergic rhinitis Other seborrheic dermatitis Surgical History Surgery Date(Month/Year) Colonoscopy, EGD 04/11/2021 Hospitalization History Reason Date(Month/Year) GI Symptoms Early 1999
--- OUTSIDE RECORDS SUMMARY | 2025-02-06 09:53 | XMS_ITS | Clinical Summary ---
Author Organization [facility] Address [address] [place] [address] Phone Care Team Providers Care Veterinary Technician Instructor Name Role Phone Saúl Carpio MD Primary Care Provider [phone] Allergies Active Allergy Reactions Criticality Noted Date Comments Amoxicillin Shortness of Breath/Wheezing High 2020 Penicillins Shortness of Breath/Wheezing High 2020 Medications pantoprazole sodium (PANTOPRAZOLE ORAL) Take by mouth. Activ e FAMOTIDINE ORAL Take by mouth. Active amlodipine besylate (AMLODIPINE ORAL) Take by mouth. Activ e CLONAZEPAM ORAL Take by mouth. Active phentermine HCl (PHENTERMINE ORAL) Take by mouth. Activ e mepolizumab (NUCALA SUBCUT) Inject by subcutaneous injection. Active ergocalciferol, vitamin D2, (VITAMIN D2 ORAL) Take by mouth. Activ e AZILSARTAN MEDOXOMIL ORAL Take by mouth. Active cetirizine HCl (CETIRIZINE ORAL) Take by mouth. Activ e fluticasone furoate-vilante roL (Breo Ellipta) 200-25 mcg/dose Disk with Device Take 1 Puff by inhalation daily. Active epinephrine (AUVI-Q INJECTION) by Injection route. Active ondansetron (Zofran ODT) 4 mg Tablet, Rapid DissolveIndicat ions:may substitute for non ODT if not covered by insurance. Take 1 Tablet (4 mg) by mouth every 8 hours as needed for Nausea/Emesis. Dissolve tablet on top of tongue, then swallow with saliva. 20 Tablet 1 Active Social History Tobacco Use Types Packs/Day Years Used Date Smoking Tobacco: Never Assessed Comments No Sex and Gender Information Value Date Recorded Sex Assigned at Not on file Legal Sex Female 9:23 PM CDT Gender Identity Not on file Sexual Orientation Not on file Last Filed Vital Signs Vital Sign Reading Time Taken Comments Blood Pressure 100/63 02/03/2021 12:30 AM CDT Pulse 71 02/03/2021 12:30 AM CDT Temperature 36.7 C (98.1 F) 02/02/2021 6:08 PM CDT Respiratory Rate 18 02/02/2021 11:53 PM CDT Oxygen Saturation 97% 02/03/2021 12:30 AM CDT Inhaled Oxygen Concentration - - Weight 101.2 kg (223 lb) 02/02/2021 6:08 PM CDT Height 170.2 cm (5' 7 ) 02/02/2021 6:08 PM CDT Body Mass Index 34.93 02/02/2021 6:08 PM CDT Plan of Treatment Health Maintenance Due Date Last Done Comments DTAP/TDAP/TD VACCINES (1 - Tdap) 1998 HEPATITIS B VACCINES (1 of 3 - 19+ 3-dose series) 1998 HPV/Cotest (21-29) 2000 PAP SMEAR 2000 CERVICAL CANCER SCREENING 2009 HPV/Cotest (30-65) 2009 PAP SMEAR 2009 BREAST CANCER SCREENING 2019 INFLUENZA VACCINE (#1) 2024 COLORECTAL SCREENING 2024 Colorectal Cancer Screening 2024 FIT-DNA Q 3 years 2024 FIT/FOBT Q 1 year 2024 Flex Sig/CT Colonography Q 5 years 2024 HPV VACCINES Aged Out No longer eligi ble based on patient's age to complete this topic PNEUMOCOCCAL VACCINE 0-49 YEARS Aged Out No longer eligible based on patient's age to complete this topic Care Teams Veterinary Technician Instructor Relationship Specialty Start Date End Date Saúl Carpio MD PCP - General Family Practice 02/02/21
--- OUTSIDE RECORDS SUMMARY | 2025-02-06 09:53 | XMS_ITS | Encounter Summary ---
Author Organization [facility] Address [address] [place] [address] Care Team Providers Care Surgical Oncologist Name Role Phone Meagan Markham MD Primary Care Provider + Encounter Details Date Type Department Care Team (Late st Contact Info) Description 12/04/2018 Lab Requisition [facility] Care DermPath Lab [address] [facility] [place] [address] Laly Ortiz MD [address] [facility] 3 [place] [address] Social History Tobacco Use Types Packs/Day Years Used Date Smoking Tobacco: Never Assessed Comments Unknown Sex and Gender Information Value Date Recorded Sex Assigned at Not on file Legal Sex Female 5:33 AM TITLE INSPECTOR Gender Identity Not on file Sexual Orientation Not on file documented as of this encounter Plan of Treatment Not on file documented as of this encounter Procedures Procedure Name Priority Date/Time Associated Diagnosis Comments DERMATOPATH TECHNICAL REPORT Routine 12/03/2018 12:00 AM TITLE INSPECTOR documented in this encounter Results * DERMATOPATH TECHNICAL REPORT (12/03/2018 12:00 AM TITLE INSPECTOR) Case Report Dermatopathology Report Case: [id number] Authorizing Provider: Laly Ortiz MD Collected: 12/03/2018 12:00 AM Pathologist: Lucía Barnett MD Received: 12/04/2018 06:56 AM Specimen: Skin, right arm 9 12:26 PM TITLE INSPECTOR DERMATOPATHOLOGY LABORATORY Addendum 1 At the request of the diagnosing physician, the technical component for PAS and Colloidal Iron was performed by [facility] Dermatopathology Laboratory. 9 12:26 PM TITLE INSPECTOR DERMATOPATHOLOGY LABORATORY Addendum electronically signed by Lucía Barnett MD on 12/06/2018 at 12:26 PM Clinical History Drug vs urticaria. 12:26 PM [facility] DERMATOPATHOLOGY [facility]ORATORY Gross Description Specimen A: Received is one formalin filled container labeled with the patient's name and designated right arm. The specimen consists of a punch measuring [id number], bisected. Jar 0. [facility] Dermatopathology Laboratory performed the technical component only. 12:26 PM [facility] DERMATOPATHOLOGY [facility]ORATORY Embedded Images 12:26 PM [facility] DERMATOPATHOLOGY LABORATORY DISCLAIMER An external and internal positive and negative controls are appropriate for the histochemical, immunohistochemical and immunofluorescence stain(s) in this case (if any), except where stated explicitly. The performance characteristics of the stain(s) cited in this report were developed and its performance characteristic determined by the Dermatopathology Laboratory at [facility], directed by Dr. Felice Leyva. These tests need not be, and therefore are not, approved by the [place] Food and Drug Administration. The tests are used for clinical purposes. 12:26 PM [facility] DERMATOPATHOLOGY LABORATORY Pathology/Cytolog y TISSUE SPECIMEN FROM SKIN / Unknown 12/03/2018 12/04/2018 6:56 AM TITLE INSPECTOR Laly Ortiz MD LAB - PATHOLOGY/CYTOLOGY OR DERABLES Edited Result - Final DERMATOPATHOLOGY LABORATORY [facility] - Department of Dermatology [address] [facility], 5th Floor Lab [address] [place], [place] [id number] [place] [address] documented in this encounter Visit Diagnoses Not on filedocumented in this encounter Care Teams Surgical Oncologist Relationship Specialty Start Date End Date Meagan Markham MD [address] [place] [address] PCP - General 12/03/18 documented as of this encounter
--- OUTSIDE RECORDS SUMMARY | 2025-02-06 09:54 | XMS_ITS | Encounter Summary ---
Author Organization [facility] Address [address] [place] [address] Care Team Providers Care Media Planner Name Role Phone Meagan Markham MD Primary Care Provider + Encounter Details Date Type Department Care Team (Late st Contact Info) Description 12/04/2018 Lab Requisition [facility] [address] [facility] [place] [address] Laly Ortiz MD [address] [facility] [address] [place] [address] Social History Tobacco Use Types Packs/Day Years Used Date Smoking Tobacco: Never Assessed Comments Unknown Sex and Gender Information Value Date Recorded Sex Assigned at Not on file Legal Sex Female 5:33 AM TARGETING ACQUISITION OFFICER Gender Identity Not on file Sexual Orientation Not on file documented as of this encounter Plan of Treatment Not on file documented as of this encounter Procedures Procedure Name Priority Date/Time Associated Diagnosis Comments IMMUNOFLUORESCENT STUDY DERM Routine 12/03/2018 12:00 AM TARGETING ACQUISITION OFFICER documented in this encounter Results * IMMUNOFLUORESCENT STUDY DERM (12/03/2018 12:00 AM TARGETING ACQUISITION OFFICER) Case Report Dermatopathol ogy Report Case: [id number] Authorizing Provider: Laly Ortiz MD Collected: 12/03/2018 12:00 AM Pathologist: Antonella Leyva MD Received: 12/04/2018 07:53 AM Specimen: Skin, right thigh 9 5:53 PM TARGETING ACQUISITION OFFICER DERMATOPATHOLOGY LABORATORY Final Diagnosis Specimen A. SKIN, right thigh: NO IMMUNOPATHOLO GICAL ABNORMALITY (L98.9) (see microscopic description) 9 5:53 PM TARGETING ACQUISITION OFFICER DERMATOPATHOLOGY LABORATORY Direct Immunofluorescence Report - Specimen A Specimen A IgA IgM IgG C3 CollV Fibrinogen Epidermis Negative Negative Negative Negative Negative Negative Basement Membrane Negative Negative Negative Negative 2+ Negative Vessels Negative Negative Negative Negative 2+ Negative Interstitium Negative Negative Negative Negative Negative Non specific 9 5:53 PM TARGETING ACQUISITION OFFICER DERMATOPATHOLOGY LABORATORY Clinical History Drug vs urticaria. Irrit. 9 5:53 PM TARGETING ACQUISITION OFFICER DERMATOPATHOLOGY LABORATORY Gross Description Specimen A: Received is one Trell's media filled container labeled with the patient's name and designated right thigh. The specimen consists of a punch measuring [id number]. The specimen is submitted in whole for direct immunofluores cence testing. 5:53 PM TARGETING ACQUISITION OFFICER DERMATOPATHOLOGY LABORATORY Microscopic Description Specimen A. SKIN, right thigh: Controls were run in parallel. Staining is negative with IgA, IgM, IgG, and C3. Collagen IV stains the basement membrane zone and vessels. Fibrinogen shows non-specific staining. A hematoxylin and eosin stained frozen section shows no significant inflammation. 5:53 PM TARGETING ACQUISITION OFFICER DERMATOPATHOLOGY LABORATORY Disclaimer An external and internal positive and negative controls are appropriate for the histochemical , immunohistoch emical and immunofluores cence stain(s) in this case (if any), except where stated explicitly. The performance characteristi cs of the stain(s) cited in this report were developed and its performance characteristi c determined by the Dermatopathol ogy Laboratory at [facility], directed by Dr. Felice Leyva. These tests need not be, and therefore are not, approved by the [place] Food and Drug Administratio n. The tests are used for clinical purposes. Billing Codes Specimen Charges Stain Charges 63009 [id number] 1 1 1 1 1 1 9 5:53 PM TARGETING ACQUISITION OFFICER DERMATOPATHOLOGY LABORATORY Embedded Images 9 5:53 PM TARGETING ACQUISITION OFFICER DERMATOPATHOLOGY LABORATORY Pathology/Cytolog y TISSUE SPECIMEN FROM SKIN / Unknown 12/03/2018 12/04/2018 7:53 AM TARGETING ACQUISITION OFFICER Laly Ortiz MD LAB - PATHOLOGY/CYTOLOGY OR DERABLES Final Result DERMATOPATHOLOGY LABORATORY [facility] - Department of Dermatology [address] [facility] 5th [place] [address], [facility] [phone] documented in this encounter Visit Diagnoses Not on filedocumented in this encounter Care Teams Media Planner Relationship Specialty Start Date End Date Meagan Markham MD [address] [place] [address] PCP - General 12/03/18 documented as of this encounter
== END 2025-02-06 09:41 | disposition home or self-care (01) ==
LOC: ANHIMG 09:46
PROVIDERS: PCP Family Medicine; Visit Provider Nurse Practitioner
DX: Z12.31 Encounter for screening mammogram for malignant neoplasm of breast (principal)
CPT/HCPCS: 77063; 77067